=== PATIENT | female | born 1960 | race Caucasian/White ===

== ENCOUNTER → 2018-01-16 09:59 | Outpatient (CLI) | payer OTHER, SELFPAY ==
--- NOTE | 2018-01-16 10:19 | DI.RAD.S_ITS ---
PROCEDURE: XR CERVICAL SPINE 2V OR 3V INDICATIONS: Chronic neck pain TECHNIQUE: 3 view(s) of the cervical spine were acquired. COMPARISON: None. FINDINGS: Bones: Cervical lordosis is maintained. Slight anterolisthesis C4-5 and C5-6. Anterior bony spondylosis C4-C7. Disc narrowing C6-7. No fractures or dislocations to the C7 level. The lateral masses of C1 appear intact on the odontoid view. No suspicious bony lesions. Radiodensity posterior to the C7 dorsal spinous process could represent old cortical avulsion injury versus soft tissue ossification. Soft tissues: No prevertebral soft tissue swelling. IMPRESSION: 1. No acute bony abnormality. 2. Mild malalignment, hypertrophic changes and disc disease. 3. Small ossification posterior to the C7 dorsal spinous process, possibility of remote avulsion injury not excluded. Dictated by: Jadiel Grace M.D. on 01/16/2018 at 10:48 Approved by: Jadiel Grace M.D. on 01/16/2018 at 10:52
--- NOTE | 2018-01-16 10:19 | DI.RAD.S_ITS ---
PROCEDURE: XR SHOULDER RT MIN 2V INDICATIONS: Chronic right anterior shoulder pain TECHNIQUE: 3 views of the shoulder were acquired. COMPARISON: None. FINDINGS: Bones: Degenerative a.c. joint disease. No fractures or dislocations. No suspicious bony lesions. Visualized ribs appear intact. Soft tissues: Punctate calcification versus artifact overlying the humeral head laterally. IMPRESSION: 1. No acute or remote fracture deformity seen. 2. 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 Findings could correlate with impingement. 3. Possible calcific tendinopathy. Dictated by: Jadiel Grace M.D. on 01/16/2018 at 10:46 Approved by: Jadiel Grace M.D. on 01/16/2018 at 10:48
[2018-01-16 10:59] LABS: Add Manual Diff / Slide Review NO; Basophils Percent Auto 1.3 % (0-2); Eosinophils Percent Auto 2.7 % (2-4); Hematocrit 40.9 % (36-46); Hemoglobin 14.2 g/dL (12.0-16.0); Mean Corpuscular HGB Conc 34.7 % (30-36); Mean Corpuscular Hemoglobin 32.6 PG (26-34); Mean Corpuscular Volume 93.7 fL (80-100); Monocytes Percent Auto 9.2 % (3-14); Neutrophils Absolute Auto 3600 /uL (3000-5900); Neutrophils Percent Auto 55.8 % (50-75); Platelet Count 262 X10^3/uL (150-400); Red Blood Cell Count 4.37 X10^6/uL (4.0-5.2); Red Cell Distribution Width 12.7 % (11.6-14.8); White Blood Cell Count 6.4 X10^3/uL (4.5-11.0)
[2018-01-16 11:06] LABS: Hemoglobin A1C% w Est Avg Glu 6.9 % (4.0-6.0)
[2018-01-16 11:39] LABS: Creatinine Urine Random 20.7 mg/dL
[2018-01-16 11:41] LABS: Alanine Aminotransferase 36 IU/L (9-52); Albumin 4.4 g/dL (3.5-5.0); Albumin Globulin Ratio 1.4 (1.0-2.8); Alkaline Phosphatase 93 U/L (38-126); Aspartate Aminotransferase 31 IU/L (14-36); Bilirubin Total 0.8 mg/dL (0.2-1.3); Blood Urea Nitrogen 14 mg/dL (7-17); Calcium 10.5 mg/dL (8.4-10.2); Carbon Dioxide 31 mmol/L (22-32); Chloride 100 mmol/L (98-107); Cholesterol 228 mg/dL (140-199); Estimated Glomerular Filt Rate > 60.0 mL/min (>60); Globulin 3.1 g/dL (1.7-4.1); Glucose 157 mg/dL (70-100); HDL Cholesterol 66 mg/dL (40-60); HEMOLYSIS < 15 (0-50); LDL Cholesterol Calculated 144 mg/dL (<100); Potassium 5.3 mmol/L (3.4-5.1); Sodium 142 mmol/L (137-145); Total Protein 7.5 g/dL (6.3-8.2); Triglycerides 90 mg/dL (35-150)
[2018-01-16 11:48] LABS: Microalbumi Creatinin Ratio Ur 28.9 ug/mg CR (<30); Microalbumin Urine Random < 0.6 mg/dL (0-1.6)
[2018-01-16 12:08] LABS: Thyroid Stimulating Hormone 2.36 uIU/mL (0.47-4.68)
== END ==
PROVIDERS: PCP Internal Medicine; Visit Provider Internal Medicine
DX: E11.9 Type 2 diabetes mellitus without complications (principal); E78.5 Hyperlipidemia, unspecified; M54.2 Cervicalgia; M25.511 Pain in right shoulder
CPT/HCPCS: 36415; 72040; 73030; 80053; 80061; 82043; 82570; 83036; 84443; 85025

== ENCOUNTER → 2018-05-28 10:11 | Outpatient (CLI) | payer OTHER, SELFPAY ==
[2018-05-28 11:16] LABS: Hemoglobin A1C% w Est Avg Glu 6.7 % (4.0-6.0)
[2018-05-28 11:18] LABS: Alanine Aminotransferase 35 IU/L (9-52); Albumin 4.8 g/dL (3.5-5.0); Albumin Globulin Ratio 1.6 (1.0-2.8); Alkaline Phosphatase 78 U/L (38-126); Aspartate Aminotransferase 32 IU/L (14-36); BUN Creatinine Ratio 18.6 (6-22); Bilirubin Total 0.7 mg/dL (0.2-1.3); Blood Urea Nitrogen 13 mg/dL (7-17); Calcium 9.6 mg/dL (8.4-10.2); Carbon Dioxide 25 mmol/L (22-32); Chloride 103 mmol/L (98-107); Cholesterol 222 mg/dL (140-199); Estimated Glomerular Filt Rate > 60.0 mL/min (>60); Glucose 120 mg/dL (70-100); HDL Cholesterol 57 mg/dL (40-60); HEMOLYSIS < 15 (0-50); LDL Cholesterol Calculated 141 mg/dL (<100); Potassium 4.2 mmol/L (3.4-5.1); Sodium 142 mmol/L (137-145); Total Protein 7.8 g/dL (6.3-8.2); Triglycerides 120 mg/dL (35-150)
== END ==
PROVIDERS: PCP Internal Medicine; Visit Provider Internal Medicine
DX: E78.5 Hyperlipidemia, unspecified (principal); E83.52 Hypercalcemia; E87.5 Hyperkalemia; E11.9 Type 2 diabetes mellitus without complications
CPT/HCPCS: 36415; 80053; 80061; 83036

== ENCOUNTER → 2018-11-28 06:46 | Outpatient (CLI) | payer OTHER, SELFPAY ==
--- NOTE | 2018-11-28 | DI.ECHO.S_ITS ---
[facility]---------+ [facility] +---------+ : : [address] : : : : [id number] : : : : Phone: [phone] Echocardiogram Report + + :Name: SOHAIL GAYLE Study Date: 11/28/2018 Height: 67 in : :[facility] Weight: 191 lb : : Gender: Female BSA: 2.0 m2 : :: 1960 Age: 58 yrs BP: 128/78 mmHg: :Reason For Study: MURMUR : : Performed By: Britney Fairchild : :Referring: MILE STEWART : + + Interpretation Summary The left ventricle is normal in size, wall thickness, and systolic function without any focal wall motion abnormalities. The right ventricle is normal in size and function. There is trace mitral regurgitation. There is no significant valvular abnormalities. No prior echo for comparison. Procedure: A two-dimensional transthoracic echocardiogram with color flow and Doppler was performed. The study quality was technically adequate. There is no prior echocardiogram noted for this patient. The patient was in normal sinus rhythm during the exam. Left Ventricle: The left ventricle is normal in size, wall thickness, and systolic function without any focal wall motion abnormalities. The ejection fraction is estimated to be 60-65%. Diastolic parameters suggest probable normal left ventricular diastolic function and normal filling pressures. Right Ventricle: The right ventricle is normal in size and function. Atria: Both atria are normal in size. There is no Doppler evidence for an interatrial shunt. Mitral Valve: The mitral valve is normal in structure and function. There is trivial bowing of the posterior leaflet without prolapse. There is trace mitral regurgitation. Aortic Valve: The aortic valve is grossly normal. There is no aortic valve stenosis. No aortic regurgitation is present. Tricuspid Valve: The tricuspid valve is normal in structure and function. There is a trace or physiologic amount of tricuspid regurgitation. Pulmonary artery pressures cannot be estimated because of the lack of a measurable TR jet velocity. Pulmonic Valve: The pulmonic valve is not well seen, but is grossly normal. There is a trace or physiologic amount of pulmonic regurgitation. Great Vessels: The aortic root is normal size. The ascending aorta is normal in size. The aortic arch is normal in size. The pulmonary artery is normal size. The IVC is of normal diameter and collapses greater than 50% with a sniff. This suggests a low right atrial pressure of 3 mm Hg. Pericardium/ Pleura There is no pericardial effusion. There is no pleural effusion. MMode/2D Measurements & Calculations LVIDd: 4.4 cm LVOT diam: 1.8 cm LVIDs: 2.5 cm Ao root diam: 2.8 cm FS: 42.8 % asc Aorta Diam: 2.9 cm EPSS: 0.40 cm IVSd: 0.80 cm LVPWd: 0.73 cm LV atkinson. diameter/BSA (cm/m^2): 2.2 LV sys. diameter/BSA (cm/m^2): 1.3 LA A2 area: 13.2 cm2 RA long axis: 4.1 cm LA A4 area: 18.0 cm2 RA area: 13.0 cm2 LA length (vol): 5.1 cm RA vol: 34.9 ml LA vol: 39.2 ml RA : 17.6 ml/m2 LA vol index: 19.8 ml/m2 IVC diam: 2.1 cm RVD1 (basal): 3.3 cm TAPSE: 2.4 cm Doppler Measurements & Calculations Ao V2 max: 137.2 cm/sec LVOT Max Tho: 86.8 cm/sec Ao V2 mean: 102.7 cm/sec LV V1 max P.0 mmHg Ao max P.5 mmHg LV V1 VTI: 24.5 cm Ao mean P.5 mmHg LOS(I,D): 1.8 cm2 Ao V2 VTI: 35.9 cm LOS(V,D): 1.6 cm2 sev ratio: 0.68 LOS indexed to BSA (cm^2/m^2): 0.90 MV E max tho: 96.9 cm/sec SV(LVOT): 63.8 ml MV A max tho: 86.9 cm/sec MV E/A: 1.1 Med Peak E' Tho: 5.9 cm/sec E/E' med: 16.5 Lat Peak E' Tho: 8.9 cm/sec E/E' lat: 10.8 E/e' average: 13.7 MV dec time: 0.18 sec Electronically signed by: Rayray Young M.D. on Reading Physician:11/28/2018 10:14 AM
== END ==
PROVIDERS: PCP Internal Medicine; Visit Provider Internal Medicine
DX: R01.1 Cardiac murmur, unspecified (principal)
CPT/HCPCS: 93306

== ENCOUNTER 2019-04-14 11:27 | Emergency (ER) | payer OTHER, SELFPAY ==
[2019-04-14 11:35] VITALS: BP 132/79; PULSE 73; RESP 18; TEMP 36.8; O2SAT 97; BMI 36.2
--- NOTE | 2019-04-14 13:48 | DI.US.S_ITS ---
PROCEDURE: US ABDOMEN LIMITED INDICATIONS: RUQ PAIN TECHNIQUE: Real-time focused scanning was performed of the abdomen, with image documentation. COMPARISON: [facility], US, ABDOMEN COMPLETE, 10/11/2016, 8:34. [facility], CT, KIDNEY/ URETER/BLADDER, 09/29/2009, 13:30. FINDINGS: The liver demonstrates normal size. The liver demonstrates generalized increased echogenicity. This decreases ultrasound sensitivity for detection of hepatic masses. No findings of gallstones or sludge are seen. The gallbladder wall is not thickened, measuring 3 mm or less. No specific pericholecystic fluid is seen. The sonographic Sagastume sign is negative. There is no biliary dilatation, the common bile duct measures 3-4 mm. IMPRESSION: The gallbladder demonstrates a normal sonographic appearance. No biliary dilatation is seen. The liver demonstrates increased echogenicity. This finding is nonspecific, yet it is most commonly attributed to fatty infiltration. Dictated by: Brian Tirado M.D. on 04/14/2019 at 15:08 Approved by: Brian Tirado M.D. on 04/14/2019 at 15:10
[2019-04-14 13:50] LABS: Bacteria Urine None Seen; RBC Urine None Seen (0-5/HPF)
[2019-04-14 14:11] LABS: Culture Indicated Urine Cult Not Indicated; Squamous Epithelial Cell Urine 1-5 /HPF (0-5/HPF); WBC Urine 0-1/HPF (0-5/HPF)
[2019-04-14] MEDS: ONDANSETRON 4 MG/2 ML INJ IV (14:17)
[2019-04-14] MEDS: MORPHINE 4 MG/ML INJ IV (14:17)
[2019-04-14] MEDS: SODIUM CHLORIDE 0.9% 1,000 ML 1000 ML IV (14:17)
[2019-04-14 14:25] VITALS: BP 125/68; PULSE 70; RESP 17; O2SAT 96
[2019-04-14 14:32] LABS: Add Manual Diff / Slide Review NO; Basophils Absolute Auto 200 /uL (0-100); Basophils Percent Auto 2.7 % (0-2); Eosinophils Absolute Auto 200 /uL (0-450); Eosinophils Percent Auto 3.1 % (2-4); Hematocrit 42.2 % (36-46); Hemoglobin 14.6 g/dL (12.0-16.0); Lymphocytes Absolute Auto 2500 /uL (1100-4500); Lymphocytes Percent Auto 38.3 % (25-40); Mean Corpuscular HGB Conc 34.5 % (30-36); Mean Corpuscular Hemoglobin 31.8 PG (26-34); Mean Corpuscular Volume 92.4 fL (80-100); Monocytes Absolute Auto 600 /uL (0-900); Monocytes Percent Auto 8.6 % (3-14); Neutrophils Absolute Auto 3000 /uL (1500-7000); Neutrophils Percent Auto 47.3 % (50-75); Platelet Count 249 X10^3/uL (150-400); Red Blood Cell Count 4.57 X10^6/uL (4.0-5.2); Red Cell Distribution Width 12.5 % (11.6-14.8); White Blood Cell Count 6.4 X10^3/uL (4.5-11.0)
[2019-04-14 14:42] LABS: Alanine Aminotransferase 17 IU/L (9-52); Albumin 4.7 g/dL (3.5-5.0); Albumin Globulin Ratio 1.4 (1.0-2.8); Alkaline Phosphatase 115 U/L (38-126); Amylase 87 U/L (30-110); Aspartate Aminotransferase 32 IU/L (14-36); BUN Creatinine Ratio 18.6 (6-22); Bilirubin Total 0.4 mg/dL (0.2-1.3); Blood Urea Nitrogen 13 mg/dL (7-17); Calcium 10.3 mg/dL (8.4-10.2); Carbon Dioxide 25 mmol/L (22-32); Chloride 103 mmol/L (98-107); Estimated Glomerular Filt Rate > 60.0 mL/min (>60); Globulin 3.3 g/dL (1.7-4.1); Glucose 120 mg/dL (70-100); HEMOLYSIS 24 (0-50); Lipase 188 U/L (23-300); Potassium 4.5 mmol/L (3.4-5.1); Sodium 140 mmol/L (137-145)
[2019-04-14 15:34] VITALS: BP 123/76; PULSE 65; O2SAT 95
[2019-04-14 16:16] VITALS: BP 115/65; PULSE 60; RESP 16; O2SAT 97
--- NOTE | 2019-04-14 18:27 | ED.FEMALEGU ---
HPI - Female Genitourinary <MAXIM Brower - Last Filed: 04/14/19 18:31> General Chief complaint: Urogenital-Female Stated complaint: mid abd/back right side pain x14 days Time Seen by Provider: 04/14/19 13:08 Source: patient and family Mode of arrival: ambulatory Limitations: no limitations History of Present Illness HPI Narrative: The patient is a 58-year-old female nonsmoker with history of prediabetes who presents with a chief complaint of right upper quadrant pain. She states has been going on for 2 weeks. She states that she saw her PCP for a yesterday, who ordered blood work which came back normal. She has an appointment for an ultrasound of her right upper quadrant coming up. The patient states that she has crampy pain in her right upper quadrant that radiates around to her back. She states that it gets worse after eating, especially fatty foods. She does note that she recently has been doing the ketogenic diet, and has substantially increased her fat intake. She states that her stools have been different lately. She states she has nausea, no vomiting. She denies any fevers, chest pain shortness of breath. She states that she does not have any lower belly pain. She does not have any dysuria urgency or frequency. She denies any vaginal discharge possibility of as she has had a tubal ligation. Related Data Home Medications Medication Instructions Recorded Confirmed Glucose: Test Strips 0 str MISCELLANEOUS BID 04/14/19 04/14/19 citalopram [Celexa] 20 mg PO QPM 04/14/19 04/14/19 metformin 1,000 mg PO BID 04/14/19 04/14/19 metformin 500 mg PO DAILY 04/14/19 04/14/19 Previous Rx's Medication Instructions Recorded omeprazole 40 mg PO BID #28 cap 10/08/16 ondansetron 4 mg PO Q6H PRN #20 tab 04/14/19 Allergies Allergy/AdvReac Type Severity Reaction Status Date / Time Penicillins Allergy Mild RASH Verified 04/14/19 11:35 Review of Systems <MAXIM Brower - Last Filed: 04/14/19 18:31> Review of Systems Narrative: GENERAL: Denies chills, fatigue, malaise, fever, sweats. HEENT: Denies sinus pain, ear pain, sore throat, difficulty swallowing, dizziness. RESPIRATORY: Denies dyspnea, cough, wheezing, hemoptysis, sputum. CARDIOVASCULAR: Denies chest pain, palpitations, orthopnea, edema, GASTROINTESTINAL: See HPI : Denies dysuria, frequency, incontinence, hematuria, urinary retention. MUSCULOSKELETAL: denies weakness, joint pain, or bony pain SKIN: Denies rash, skin lesions, or other NEUROLOGIC: Denies weakness, headache, numbness, change in speech, confusion, seizures, incoordination. PSYCHIATRIC: No concerning psychosocial issues. 12 point review of systems is negative except for those stated above PFSH <MAXIM Brower - Last Filed: 04/14/19 18:31> Medical History Ankle pain (Chronic ~2013) Depression (Chronic ~1979) Diabetes mellitus (Chronic ~2006) Foot pain (Chronic ~2013) Fractures (Resolved ~1969) Hay fever (Chronic ~1979) Mumps (Resolved) Vertigo (Chronic ~2006) Vision disorder (Chronic) Surgical History Anesthesia (Resolved) Status post tubal ligation (~1999) Trigger finger of right thumb (Resolved ~1999) Family History (Updated 04/08/16 @ 00:00 by Conversion Provider) Father Cancer Heart disease Grandfather Diabetes mellitus Heart disease Stroke Grandmother Diabetes mellitus Stroke Mother Heart disease Grandmother Heart disease Social History Smoking Status: Former smoker Family History Father Cancer Heart disease Grandfather Diabetes mellitus Heart disease Stroke Grandmother Diabetes mellitus Stroke Mother Heart disease Grandmother Heart disease Social History Smoking Status: Former smoker Exam <MAXIM Brower - Last Filed: 04/14/19 18:31> Narrative Exam Narrative: GENERAL: This is a well-nourished, well-developed patient, no acute distress HEAD: Atraumatic. Normocephalic. No temporal or scalp tenderness. EYES: Pupils equal round and reactive. Extraocular motions intact. No scleral icterus. No injection or drainage. ENT: Nose without bleeding, purulent drainage or septal hematoma. Throat without erythema, tonsillar hypertrophy or exudate. Uvula midline. Airway patent. NECK: Trachea midline. No JVD or lymphadenopathy. Supple, nontender, no meningeal signs. CARDIOVASCULAR: Regular rate and rhythm without murmurs, gallops, or rubs. RESPIRATORY: Clear to auscultation. Breath sounds equal bilaterally. No wheezes, rales, or rhonchi. GASTROINTESTINAL: Abdomen soft, tender right upper quadrant with positive Sagastume sign, nondistended. No hepato-splenomegaly, or palpable masses. No guarding. No right lower quadrant left lower quadrant pain. No pain over McBurney's point. Active bowel sounds all 4 quadrants. EXTREMITIES: No clubbing, cyanosis, or edema. No joint tenderness, effusion, or edema noted. BACK: Nontender without deformity or crepitance. No flank tenderness. No CVA tenderness bilaterally. NEURO: AOx3. SKIN: No rash or erythema. Initial Vital Signs Initial Vital Signs: Vital Signs Temperature 98.2 F 04/14/19 11:35 Pulse Rate 73 04/14/19 11:35 Respiratory Rate 18 04/14/19 11:35 Blood Pressure 132/79 04/14/19 11:35 Pulse Oximetry 97 04/14/19 11:35 <Rox White DO - Last Filed: 04/14/19 19:21> Initial Vital Signs Initial Vital Signs: Vital Signs Temperature 98.2 F 04/14/19 11:35 Pulse Rate 73 04/14/19 11:35 Respiratory Rate 18 04/14/19 11:35 Blood Pressure 132/79 04/14/19 11:35 Pulse Oximetry 97 04/14/19 11:35 Course <CATHY Brower-BC - Last Filed: 04/14/19 18:31> Orders Ordered: ED Orders 04/14/19 13:48 US abdomen limited Stat 04/14/19 14:22 Amylase Stat Complete Blood Count AUTO DIFF Stat Comprehensive Metabolic Panel Stat Lipase Stat Discontinued Medications Sodium Chloride (Normal Saline 0.9%) 1,000 mls @ 1,000 mls/hr IV BOLUS ONE Stop: 04/14/19 14:48 Last Infusion: 04/14/19 15:28 Dose: 0 mls/hr Documented by: Admin: 04/14/19 14:17 Dose: 1,000 mls/hr Documented by: ELLIOTT Morphine Sulfate (Morphine) 4 mg IV NOW ONE Stop: 04/14/19 13:48 Last Admin: 04/14/19 14:17 Dose: 4 mg Documented by: ELLIOTT Ondansetron HCl (Zofran) 4 mg IV NOW ONE Stop: 04/14/19 13:48 Last Admin: 04/14/19 14:17 Dose: 4 mg Documented by: ELLIOTT Vital Signs Vital signs: Vital Signs - 8 hr 04/14/19 11:35 04/14/19 14:25 04/14/19 15:34 Temperature 98.2 F Pulse Rate 73 70 65 Respiratory Rate 18 17 Blood Pressure 132/79 Blood Pressure [Left Wrist] 125/68 123/76 Pulse Oximetry 97 96 95 04/14/19 16:16 Temperature Pulse Rate 60 Respiratory Rate 16 Blood Pressure 115/65 Blood Pressure [Left Wrist] Pulse Oximetry 97 <Rox White, - Last Filed: 04/14/19 19:21> Orders Ordered: ED Orders 04/14/19 13:48 US abdomen limited Stat 04/14/19 14:22 Amylase Stat Complete Blood Count AUTO DIFF Stat Comprehensive Metabolic Panel Stat Lipase Stat Discontinued Medications Sodium Chloride (Normal Saline 0.9%) 1,000 mls @ 1,000 mls/hr IV BOLUS ONE Stop: 04/14/19 14:48 Last Infusion: 04/14/19 15:28 Dose: 0 mls/hr Documented by: Admin: 04/14/19 14:17 Dose: 1,000 mls/hr Documented by: ELLIOTT Morphine Sulfate (Morphine) 4 mg IV NOW ONE Stop: 04/14/19 13:48 Last Admin: 04/14/19 14:17 Dose: 4 mg Documented by: ELLIOTT Ondansetron HCl (Zofran) 4 mg IV NOW ONE Stop: 04/14/19 13:48 Last Admin: 04/14/19 14:17 Dose: 4 mg Documented by: ELLIOTT Vital Signs Vital signs: Vital Signs - 8 hr 04/14/19 11:35 04/14/19 14:25 04/14/19 15:34 Temperature 98.2 F Pulse Rate 73 70 65 Respiratory Rate 18 17 Blood Pressure 132/79 Blood Pressure [Left Wrist] 125/68 123/76 Pulse Oximetry 97 96 95 04/14/19 16:16 Temperature Pulse Rate 60 Respiratory Rate 16 Blood Pressure 115/65 Blood Pressure [Left Wrist] Pulse Oximetry 97 MDM - Female Genitourinary <Rox Espinosa, [employer]- - Last Filed: 04/14/19 18:31> Lab Data Result diagrams: 04/14/19 14:22 04/14/19 14:22 Labs: Lab Results 04/14/19 04/14/19 04/14/19 Range/Units 01:53 14:22 14:22 WBC 6.4 (4.5-11.0) X10^3/uL RBC 4.57 (4.0-5.2) X10^6/uL Hgb 14.6 (12.0-16.0) g/dL Hct 42.2 (36-46) % MCV 92.4 (80-100) fL MCH 31.8 (26-34) PG MCHC 34.5 (30-36) % RDW 12.5 (11.6-14.8) % Plt Count 249 (150-400) X10^3/uL Neut % (Auto) 47.3 L (50-75) % Lymph % (Auto) 38.3 (25-40) % Rincon % (Auto) 8.6 (3-14) % Eos % (Auto) 3.1 (2-4) % Baso % (Auto) 2.7 H (0-2) % Neut # (Auto) 3000 (3115-0358) /uL Lymph # (Auto) 2500 (5359-6315) /uL Rincon # (Auto) 600 (0-900) /uL Eos # (Auto) 200 (0-450) /uL Baso # (Auto) 200 H (0-100) /uL Sodium (137-145) mmol/L Potassium (3.4-5.1) mmol/L Chloride (98-107) mmol/L Carbon Dioxide (22-32) mmol/L BUN (7-17) mg/dL Creatinine (0.52-1.04) mg/dL Estimated GFR (>60) mL/min BUN/Creatinine Ratio (6-22) Glucose (70-100) mg/dL Calcium (8.4-10.2) mg/dL Total Bilirubin (0.2-1.3) mg/dL AST (14-36) IU/L ALT (9-52) IU/L Alkaline Phosphatase (38-126) U/L Total Protein (6.3-8.2) g/dL Albumin (3.5-5.0) g/dL Globulin (1.7-4.1) g/dL Albumin/Globulin Ratio (1.0-2.8) Amylase 87 (30-110) U/L Lipase (23-300) U/L Urine RBC None seen (0-5/HPF) Urine WBC 0-1/hpf (0-5/HPF) Ur Squamous Epith Cells 1-5 /hpf (0-5/HPF) Urine Bacteria None seen (None) Ur Culture Indicated? Cult not indicated 04/14/19 Range/Units 14:22 WBC (4.5-11.0) X10^3/uL RBC (4.0-5.2) X10^6/uL Hgb (12.0-16.0) g/dL Hct (36-46) % MCV (80-100) fL MCH (26-34) PG MCHC (30-36) % RDW (11.6-14.8) % Plt Count (150-400) X10^3/uL Neut % (Auto) (50-75) % Lymph % (Auto) (25-40) % Rincon % (Auto) (3-14) % Eos % (Auto) (2-4) % Baso % (Auto) (0-2) % Neut # (Auto) (8546-2557) /uL Lymph # (Auto) (0664-9130) /uL Rincon # (Auto) (0-900) /uL Eos # (Auto) (0-450) /uL Baso # (Auto) (0-100) /uL Sodium 140 (137-145) mmol/L Potassium 4.5 (3.4-5.1) mmol/L Chloride 103 (98-107) mmol/L Carbon Dioxide 25 (22-32) mmol/L BUN 13 (7-17) mg/dL Creatinine 0.70 (0.52-1.04) mg/dL Estimated GFR > 60.0 (>60) mL/min BUN/Creatinine Ratio 18.6 (6-22) Glucose 120 H (70-100) mg/dL Calcium 10.3 H (8.4-10.2) mg/dL Total Bilirubin 0.4 (0.2-1.3) mg/dL AST 32 (14-36) IU/L ALT 17 (9-52) IU/L Alkaline Phosphatase 115 (38-126) U/L Total Protein 8.0 (6.3-8.2) g/dL Albumin 4.7 (3.5-5.0) g/dL Globulin 3.3 (1.7-4.1) g/dL Albumin/Globulin Ratio 1.4 (1.0-2.8) Amylase (30-110) U/L Lipase 188 (23-300) U/L Urine RBC (0-5/HPF) Urine WBC (0-5/HPF) Ur Squamous Epith Cells (0-5/HPF) Urine Bacteria (None) Ur Culture Indicated? Urine Dip Bedside Urine Glucose Negative Bedside Urine Bilirubin - Negative Bedside Urine Ketone +/- 5 Urine Specific Ridgeley 1.015 Bedside Urine Occult Blood - Negative Bedside Urine pH 5.5 Bedside Urine Protein - Negative Bedside Urine Urobilinogen - Negative Bedside Urine Nitrite - Negative Bedside Urine Leukocytes - Negative Esterase Imaging Data US - abdomen: Radiologist's impression: [address] [address] Ultrasound Report Signed Patient: Renuka Floyd KMR#: [id number] : 2Acct:[id number] Age/Sex: 58 / FDate of Service: 04/14/19 Loc: ED Accession Number: [id number] Procedure: US abdomen limited Ordering Provider: Rox Espinosa PROCEDURE: US ABDOMEN LIMITED INDICATIONS: RUQ PAIN TECHNIQUE: Real-time focused scanning was performed of the abdomen, with image documentation. COMPARISON: [facility], US, ABDOMEN COMPLETE, 10/11/2016, 8:34. [facility], CT, KIDNEY/ URETER/BLADDER, 09/29/2009, 13:30. FINDINGS: The liver demonstrates normal size. The liver demonstrates generalized increased echogenicity. This decreases ultrasound sensitivity for detection of hepatic masses. No findings of gallstones or sludge are seen. The gallbladder wall is not thickened, measuring 3 mm or less. No specific pericholecystic fluid is seen. The sonographic Sagastume sign is negative. There is no biliary dilatation, the common bile duct measures 3-4 mm. IMPRESSION: The gallbladder demonstrates a normal sonographic appearance. No biliary dilatation is seen. The liver demonstrates increased echogenicity. This finding is nonspecific, yet it is most commonly attributed to fatty infiltration. Dictated by: Brian Tirado M.D. on 04/14/2019 at 15:08 Approved by: Brian Tirado M.D. on 04/14/2019 at 15:10 [facility] Narrative Medical decision making narrative: The patient is a 58-year-old female who presents with a chief complaint of right upper quadrant pain. She was given IV fluids, Zofran in the emergency department. Her lab work came back grossly within normal limits. I did get a right upper quadrant ultrasound given her concerns, or which came back with no acute findings. I discussed that she does have some fatty liver. Encouraged following up with primary care provider. I did give her a prescription of Zofran. Encouraged following up with PCP in the next few days. Discussed come back to the emergency department for any acute concerns such as inability keep down fluids, severe worsening abdominal pain etc. Patient has no questions or concerns upon discharge and states that she will come back if needed and follow up with PCP. <Rox White, DO - Last Filed: 04/14/19 19:21> Lab Data Labs: Lab Results 04/14/19 04/14/19 04/14/19 Range/Units 01:53 14:22 14:22 WBC 6.4 (4.5-11.0) X10^3/uL RBC 4.57 (4.0-5.2) X10^6/uL Hgb 14.6 (12.0-16.0) g/dL Hct 42.2 (36-46) % MCV 92.4 (80-100) fL MCH 31.8 (26-34) PG MCHC 34.5 (30-36) % RDW 12.5 (11.6-14.8) % Plt Count 249 (150-400) X10^3/uL Neut % (Auto) 47.3 L (50-75) % Lymph % (Auto) 38.3 (25-40) % Rincon % (Auto) 8.6 (3-14) % Eos % (Auto) 3.1 (2-4) % Baso % (Auto) 2.7 H (0-2) % Neut # (Auto) 3000 (4002-1739) /uL Lymph # (Auto) 2500 (7606-9153) /uL Rincon # (Auto) 600 (0-900) /uL Eos # (Auto) 200 (0-450) /uL Baso # (Auto) 200 H (0-100) /uL Sodium (137-145) mmol/L Potassium (3.4-5.1) mmol/L Chloride (98-107) mmol/L Carbon Dioxide (22-32) mmol/L BUN (7-17) mg/dL Creatinine (0.52-1.04) mg/dL Estimated GFR (>60) mL/min BUN/Creatinine Ratio (6-22) Glucose (70-100) mg/dL Calcium (8.4-10.2) mg/dL Total Bilirubin (0.2-1.3) mg/dL AST (14-36) IU/L ALT (9-52) IU/L Alkaline Phosphatase (38-126) U/L Total Protein (6.3-8.2) g/dL Albumin (3.5-5.0) g/dL Globulin (1.7-4.1) g/dL Albumin/Globulin Ratio (1.0-2.8) Amylase 87 (30-110) U/L Lipase (23-300) U/L Urine RBC None seen (0-5/HPF) Urine WBC 0-1/hpf (0-5/HPF) Ur Squamous Epith Cells 1-5 /hpf (0-5/HPF) Urine Bacteria None seen (None) Ur Culture Indicated? Cult not indicated 04/14/19 Range/Units 14:22 WBC (4.5-11.0) X10^3/uL RBC (4.0-5.2) X10^6/uL Hgb (12.0-16.0) g/dL Hct (36-46) % MCV (80-100) fL MCH (26-34) PG MCHC (30-36) % RDW (11.6-14.8) % Plt Count (150-400) X10^3/uL Neut % (Auto) (50-75) % Lymph % (Auto) (25-40) % Rincon % (Auto) (3-14) % Eos % (Auto) (2-4) % Baso % (Auto) (0-2) % Neut # (Auto) (6806-9275) /uL Lymph # (Auto) (0034-9284) /uL Rincon # (Auto) (0-900) /uL Eos # (Auto) (0-450) /uL Baso # (Auto) (0-100) /uL Sodium 140 (137-145) mmol/L Potassium 4.5 (3.4-5.1) mmol/L Chloride 103 (98-107) mmol/L Carbon Dioxide 25 (22-32) mmol/L BUN 13 (7-17) mg/dL Creatinine 0.70 (0.52-1.04) mg/dL Estimated GFR > 60.0 (>60) mL/min BUN/Creatinine Ratio 18.6 (6-22) Glucose 120 H (70-100) mg/dL Calcium 10.3 H (8.4-10.2) mg/dL Total Bilirubin 0.4 (0.2-1.3) mg/dL AST 32 (14-36) IU/L ALT 17 (9-52) IU/L Alkaline Phosphatase 115 (38-126) U/L Total Protein 8.0 (6.3-8.2) g/dL Albumin 4.7 (3.5-5.0) g/dL Globulin 3.3 (1.7-4.1) g/dL Albumin/Globulin Ratio 1.4 (1.0-2.8) Amylase (30-110) U/L Lipase 188 (23-300) U/L Urine RBC (0-5/HPF) Urine WBC (0-5/HPF) Ur Squamous Epith Cells (0-5/HPF) Urine Bacteria (None) Ur Culture Indicated? Urine Dip Bedside Urine Glucose Negative Bedside Urine Bilirubin - Negative Bedside Urine Ketone +/- 5 Urine Specific Ridgeley 1.015 Bedside Urine Occult Blood - Negative Bedside Urine pH 5.5 Bedside Urine Protein - Negative Bedside Urine Urobilinogen - Negative Bedside Urine Nitrite - Negative Bedside Urine Leukocytes - Negative Esterase Discharge Plan Departure Patient Disposition: Home Clinical Impression: Biliary colic Abdominal pain Qualifiers: Abdominal location: right upper quadrant Qualified Code(s): R10.11 - Right upper quadrant pain Discharge Date/Time: 04/14/19 16:17 Instructions: DI for Abdominal Pain-Adult, DI for Biliary Colic Activity Restrictions/Additional Instructions: Thank you for trusting us with your care today Your ultrasound and lab work came back normal, other than slight fatty liver being suspected. Please come back to the emergency department for any acute concerns such as the ones we discussed including severe abdominal pain etc Please follow up with primary care provider in the next few days. I have given you a prescription of Zofran for nausea Prescriptions: New ondansetron 4 mg tablet,disintegrating 4 mg PO Q6H PRN (Reason: nausea and vomiting) Qty: 20 RF: 0 No Action omeprazole 40 MG capsule,delayed release(DR/EC) 40 mg PO BID Qty: 28 RF: 0 citalopram [Celexa] 40 mg tablet 20 mg PO QPM RF: 0 metformin 1,000 mg tablet 1,000 mg PO BID RF: 0 metformin 1,000 mg Tablet 500 mg PO DAILY RF: 0 Glucose: Test Strips 0 str miscellaneous BID RF: 0 Referrals: Taylor Manning ARNP [Primary Care Provider] -
== END 2019-04-14 16:17 | disposition home or self-care (01) ==
PROVIDERS: Emergency Provider Nurse Practitioner Family; PCP Internal Medicine
DX: K80.50 Calculus of bile duct without cholangitis or cholecystitis without obstruction (principal)
CPT/HCPCS: 76705; 80053; 81003; 81015; 82150; 83690; 85025; 96361; 96374; 96375; 99283; 99284; J2270; J2405

== ENCOUNTER → 2019-04-16 08:10 | Outpatient (CLI) | payer OTHER, SELFPAY ==
--- NOTE | 2019-04-16 | DI.US.S_ITS ---
PROCEDURE: US PELVIC COMPLETE INDICATIONS: PELVIC PAIN TECHNIQUE: Real-time scanning was performed of the pelvic organs, with image documentation. Additional endovaginal scanning was necessary due to incomplete visualization of the adnexal and endometrial structures by transabdominal scanning. COMPARISON: [facility], PELVIC COMPLETE, 10/11/2016, 8:46. Formerly [facility], , PELVIC COMPLETE, 09/09/2014, 12:52. FINDINGS: Transabdominal scanning: Limited scanning through the kidneys shows no hydronephrosis. No pathologic free abdominal or pelvic fluid. Endovaginal scanning: Uterus: Uterus is normal in size at 3.6 x 4.7 x 9.9 cm, anteverted. The endometrium measures 6.4 mm in combined thickness. The at the midline anteriorly there is a subserosal 2.5 x 2.2 x 2.0 cm fibroid. Ovaries: Not seen due to overlying bowel gas and presumed postmenopausal ovarian atrophy. IMPRESSION: Source of pelvic pain is not seen. Incidental note is made of a single uterine fibroid measuring only 2.5 cm in maximal dimension. No endometrial mass lesion is found. Please note that the ovaries could not be seen bilaterally due to to overlying bowel gas and likely also a component of postmenopausal ovarian atrophy. Dictated by: Kemal Sosa M.D. on 04/16/2019 at 11:15 Approved by: Kemal Sosa M.D. on 04/16/2019 at 11:18
== END ==
PROVIDERS: PCP Internal Medicine; Visit Provider Internal Medicine
DX: R10.2 Pelvic and perineal pain (principal); R10.11 Right upper quadrant pain; D25.2 Subserosal leiomyoma of uterus
CPT/HCPCS: 76830; 76856

== ENCOUNTER 2019-04-27 12:05 | Emergency (ER) | payer OTHER, SELFPAY ==
[2019-04-27 12:10] VITALS: BP 126/77; PULSE 68; RESP 16; TEMP 36.9; O2SAT 98; BMI 36.2
--- NOTE | 2019-04-27 13:06 | ED_ITS ---
HPI - Abdominal Pain General Chief Complaint: Abdominal Pain Stated Complaint: Hard time taking deep breath, pain pressure rt cassius Time Seen by Provider: 04/27/19 13:00 Source: patient Mode of arrival: Ambulatory History of Present Illness HPI narrative: Patient is a 58-year-old female presents with right upper quadrant and rib pain. She says been off and on for about a month. She had it worked up as an outpatient she had ultrasound 04/14/2019 which did not show anything specific. She continues to have pain it radiates 5 around her back to her front right upper quadrant. She denies any nausea is overall getting a little bit worse. No vomiting no fevers. It hurts sometimes when she breathes. She denies any flank pain no hematuria MD complaint: abdominal pain Quality: stabbing Radiation: RUQ Related Data Home Medications Medication Instructions Recorded Confirmed Glucose: Test Strips 0 str MISCELLANEOUS BID 04/14/19 04/14/19 citalopram [Celexa] 20 mg PO QPM 04/14/19 04/27/19 metformin 1,000 mg PO BID 04/14/19 04/27/19 metformin 500 mg PO DAILY 04/14/19 04/27/19 Previous Rx's Medication Instructions Recorded omeprazole 40 mg PO BID #28 cap 10/08/16 ondansetron 4 mg PO Q6H PRN #20 tab 04/14/19 Allergies Allergy/AdvReac Type Severity Reaction Status Date / Time Penicillins Allergy Mild RASH Verified 04/27/19 12:09 Review of Systems Review of Systems Narrative: GENERAL: Denies chills, fatigue, malaise, fever, sweats, travel HEENT: Denies sinus pain, ear pain, sore throat, difficulty swallowing, neck pain RESPIRATORY: Denies dyspnea, cough, wheezing, hemoptysis, sputum. CARDIOVASCULAR: Denies chest pain, palpitations, orthopnea, edema GASTROINTESTINAL: See HPI : Denies dysuria, frequency, incontinence, hematuria, urinary retention, flank pain. MUSCULOSKELETAL: Denies weakness, joint pain, or bony pain SKIN: No rash, no erythema, no pruritus NEUROLOGIC: Denies weakness, dizziness, headache, numbness, change in speech, confusion PSYCHIATRIC: No concerning psychosocial issues. 12 point review of systems is negative except for those stated above and HPI [facility] Medical History Ankle pain (Chronic ~2013) Depression (Chronic ~1979) Diabetes mellitus (Chronic ~2006) Foot pain (Chronic ~2013) Fractures (Resolved ~1969) Hay fever (Chronic ~1979) Mumps (Resolved) Vertigo (Chronic ~2006) Vision disorder (Chronic) Surgical History Anesthesia (Resolved) Status post tubal ligation (~1999) Trigger finger of right thumb (Resolved ~1999) Family History Father Cancer Heart disease Grandfather Diabetes mellitus Heart disease Stroke Grandmother Diabetes mellitus Stroke Mother Heart disease Grandmother Heart disease Social History Smoking Status: Former smoker Family History Father Cancer Heart disease Grandfather Diabetes mellitus Heart disease Stroke Grandmother Diabetes mellitus Stroke Mother Heart disease Grandmother Heart disease Social History Smoking Status: Former smoker Exam Initial Vital Signs Initial Vital Signs: Vital Signs Temperature 98.4 F 04/27/19 12:10 Pulse Rate 68 04/27/19 12:10 Respiratory Rate 16 04/27/19 12:10 Blood Pressure 126/77 04/27/19 12:10 Pulse Oximetry 98 04/27/19 12:10 GENERAL: Well-appearing, well-nourished and in no acute distress. HEENT: Head atraumatic,EOMI, pupils reactive, face symmetric, moist mucous membranes CARDIOVASCULAR: Regular rate and rhythm without murmurs, rubs or gallops. RESPIRATORY: Breath sounds equal bilaterally, no wheezes rales or rhonchi. Ribs are nontender to palpation ABDOMEN: Soft, mild tenderness or right upper quadrant no guarding no rebound : No CVA tenderness EXTREMITIES: Normal range of motion, no clubbing or edema. Neurovascularly intact NEUROLOGICAL: Alert and oriented x4. SKIN: Warm, dry, no laceration, no petechiae, no rashes or lesions. Course Orders Ordered: ED Orders 04/27/19 12:11 EKG-12 Lead Routine 04/27/19 13:06 US abdomen limited Stat Complete Blood Count AUTO DIFF Stat Comprehensive Metabolic Panel Stat Lipase Stat Discontinued Medications Ketorolac Tromethamine (Toradol) 30 mg IV NOW ONE Stop: 04/27/19 13:07 Last Admin: 04/27/19 13:20 Dose: 30 mg Documented by: KENYON Vital Signs Vital signs: Vital Signs - 8 hr 04/27/19 12:10 04/27/19 14:21 Temperature 98.4 F Pulse Rate 68 57 L Respiratory Rate 16 16 Blood Pressure 126/77 Blood Pressure [Right Arm] 127/66 Pulse Oximetry 98 99 MDM - Abdominal Pain Lab Data Attestation: I reviewed the patient's lab results. Result diagrams: 04/27/19 13:06 04/27/19 13:06 Labs: Lab Results 04/27/19 04/27/19 Range/Units 13:06 13:06 WBC 6.8 (4.5-11.0) X10^3/uL RBC 4.15 (4.0-5.2) X10^6/uL Hgb 13.2 (12.0-16.0) g/dL Hct 38.2 (36-46) % MCV 92.1 (80-100) fL MCH 31.8 (26-34) PG MCHC 34.5 (30-36) % RDW 12.3 (11.6-14.8) % Plt Count 224 (150-400) X10^3/uL Neut % (Auto) 48.1 L (50-75) % Lymph % (Auto) 36.1 (25-40) % Pitkin % (Auto) 10.3 (3-14) % Eos % (Auto) 2.4 (2-4) % Baso % (Auto) 3.1 H (0-2) % Neut # (Auto) 3300 (1418-1912) /uL Lymph # (Auto) 2400 (3742-2994) /uL Pitkin # (Auto) 700 (0-900) /uL Eos # (Auto) 200 (0-450) /uL Baso # (Auto) 200 H (0-100) /uL Sodium 140 (137-145) mmol/L Potassium 4.7 (3.4-5.1) mmol/L Chloride 103 (98-107) mmol/L Carbon Dioxide 26 (22-32) mmol/L BUN 19 H (7-17) mg/dL Creatinine 0.70 (0.52-1.04) mg/dL Estimated GFR > 60.0 (>60) mL/min BUN/Creatinine Ratio 27.1 H (6-22) Glucose 115 H (70-100) mg/dL Calcium 10.1 (8.4-10.2) mg/dL Total Bilirubin 0.5 (0.2-1.3) mg/dL AST 36 (14-36) IU/L ALT 26 (9-52) IU/L Alkaline Phosphatase 85 (38-126) U/L Total Protein 7.4 (6.3-8.2) g/dL Albumin 4.3 (3.5-5.0) g/dL Globulin 3.1 (1.7-4.1) g/dL Albumin/Globulin Ratio 1.4 (1.0-2.8) Lipase 134 (23-300) U/L Imaging Data US - abdomen: Radiologist's impression: PROCEDURE: US ABDOMEN LIMITED INDICATIONS: RIGHT UPPER QUADRANT TECHNIQUE: Real-time focused scanning was performed of the abdomen, with image documentation. COMPARISON: [facility], , US ABDOMEN LIMITED, 04/14/2019, 14:45. FINDINGS: Echogenic liver consistent with fatty change again noted. Gallbladder is again noted to be unremarkable. No gallstones or gallbladder wall thickening or pain on examination. The bile duct is nondilated. The common bile duct measures 4 mm. Visualized portions of the pancreas are unremarkable. IMPRESSION: 1. Hepatic steatosis. 2. Unremarkable gallbladder. Dictated by: Puneet Love M.D. on 04/27/2019 at 14:58 ECG Data Attestation: I personally reviewed and interpreted this ECG as follows: Prior ECG tracings: not available for review Interpretation: Normal sinus rhythm rate 66 p.r. interval 189 QRS [address] changes or T-wave inversions. [facility] Narrative Medical decision making narrative: Patient is feeling slightly better after Toradol. Blood work and ultrasound do not show any gross abnormality in her gallbladder however this is suspicious for gallbladder issue. She has pain that radiates all from the right side are round to her right upper quadrant and occasionally up to her right shoulder. She denies any injury no actual rib p ain. I recommend she have a HIDA scan. And possible evaluation with surgery. Discharge Plan Departure Patient Disposition: Home Clinical Impression: Abdominal pain Qualifiers: Abdominal location: right upper quadrant Qualified Code(s): R10.11 - Right upper quadrant pain Discharge Date/Time: 04/27/19 15:27 Instructions: DI for General Gallbladder Conditions, DI for HIDA Scan Activity Restrictions/Additional Instructions: *You have been diagnosed with abdominal pain *What to do: Pain is likely from gallbladder. I recommend HIDA scan as an outpatient and possible surgery consultation please discuss this with her PCP *Continue to take medications as directed *Follow up with your primary care provider in 2-3 days *Return to ER if you should have increasing pain persistent vomiting, fever or any new, worsening or concerning symptoms Prescriptions: No Action omeprazole 40 MG capsule,delayed release(DR/EC) 40 mg PO BID Qty: 28 RF: 0 citalopram [Celexa] 40 mg tablet 20 mg PO QPM RF: 0 metformin 1,000 mg tablet 1,000 mg PO BID RF: 0 metformin 1,000 mg Tablet 500 mg PO DAILY RF: 0 ondansetron 4 mg tablet,disintegrating 4 mg PO Q6H PRN (Reason: nausea and vomiting) Qty: 20 RF: 0 Glucose: Test Strips 0 str miscellaneous BID RF: 0 Referrals: [facility] [Provider Group] Taylor Manning ARNP [Primary Care Provider] -
[2019-04-27] MEDS: KETOROLAC 60 MG/2 ML VIAL 30 MG IV (13:20)
[2019-04-27 13:57] LABS: Add Manual Diff / Slide Review NO; Alanine Aminotransferase 26 IU/L (9-52); Albumin 4.3 g/dL (3.5-5.0); Albumin Globulin Ratio 1.4 (1.0-2.8); Alkaline Phosphatase 85 U/L (38-126); Aspartate Aminotransferase 36 IU/L (14-36); BUN Creatinine Ratio 27.1 (6-22); Basophils Absolute Auto 200 /uL (0-100); Basophils Percent Auto 3.1 % (0-2); Bilirubin Total 0.5 mg/dL (0.2-1.3); Blood Urea Nitrogen 19 mg/dL (7-17); Calcium 10.1 mg/dL (8.4-10.2); Carbon Dioxide 26 mmol/L (22-32); Chloride 103 mmol/L (98-107); Eosinophils Absolute Auto 200 /uL (0-450); Eosinophils Percent Auto 2.4 % (2-4); Estimated Glomerular Filt Rate > 60.0 mL/min (>60); Globulin 3.1 g/dL (1.7-4.1); Glucose 115 mg/dL (70-100); HEMOLYSIS 17 (0-50); Hematocrit 38.2 % (36-46); Hemoglobin 13.2 g/dL (12.0-16.0); Lipase 134 U/L (23-300); Lymphocytes Absolute Auto 2400 /uL (1100-4500); Lymphocytes Percent Auto 36.1 % (25-40); Mean Corpuscular HGB Conc 34.5 % (30-36); Mean Corpuscular Hemoglobin 31.8 PG (26-34); Mean Corpuscular Volume 92.1 fL (80-100); Monocytes Absolute Auto 700 /uL (0-900); Monocytes Percent Auto 10.3 % (3-14); Neutrophils Absolute Auto 3300 /uL (1500-7000); Neutrophils Percent Auto 48.1 % (50-75); Platelet Count 224 X10^3/uL (150-400); Potassium 4.7 mmol/L (3.4-5.1); Red Blood Cell Count 4.15 X10^6/uL (4.0-5.2); Red Cell Distribution Width 12.3 % (11.6-14.8); Sodium 140 mmol/L (137-145); Total Protein 7.4 g/dL (6.3-8.2); White Blood Cell Count 6.8 X10^3/uL (4.5-11.0)
[2019-04-27 14:21] VITALS: BP 127/66; PULSE 57; RESP 16; O2SAT 99
== END 2019-04-27 15:27 | disposition home or self-care (01) ==
PROVIDERS: Emergency Provider Emergency Medicine; PCP Internal Medicine
DX: R10.11 Right upper quadrant pain (principal)
CPT/HCPCS: 36415; 76705; 80053; 83690; 85025; 93005; 96374; 99282; 99285; J1885

== ENCOUNTER → 2019-05-19 09:49 | Outpatient (CLI) | payer OTHER, SELFPAY ==
--- NOTE | 2019-05-19 | DI.NM.S_ITS ---
PROCEDURE: NM HIDA WITH CCK PHARMACEUTICAL: 5.0 mCi Tc-99m mebrofenin IV; 1.8 mcg CCK IV. INDICATIONS: Right upper quadrant pain TECHNIQUE: Following intravenous administration of Tc-99m mebrofenin, sequential anterior abdominal images were obtained. To evaluate the contractile response of the gallbladder in response to Cholecystokinin (CCK), sincalide (0.02 ?g/kg) was administered by slow intravenous infusion approximately 60 minutes after the administration of the radiopharmaceutical. Sequential imaging was continued for 30 minutes after the start of CCK infusion. Gallbladder ejection fraction was calculated. COMPARISON: [facility], ABDOMEN LIMITED, 04/27/2019, 13:29. FINDINGS: Biliary scan: There is normal tracer uptake and excretion by the liver. There is normal visualization of the intrahepatic ducts, common bile duct, and gallbladder. There is normal tracer transit into the duodenum. CCK stimulation: There is markedly decreased contractile response of the gallbladder to CCK infusion. The calculated gallbladder ejection fraction is 7%; normal values are above 35%. It has been shown that any patient abdominal pain after CCK administration is related to the rate of CCK injection, rather than to any underlying gallbladder disease (Clinical Nuclear Medicine 2012; 37: 63-70. Journal of Nuclear Medicine 2014; 55: 1-9). IMPRESSION: 1. Gallbladder dysfunction with markedly decreased gallbladder ejection fraction suggestive of chronic cholecystitis. Dictated by: Choco Stringer M.D. on 05/19/2019 at 16:51 Approved by: Choco Stringer M.D. on 05/19/2019 at 16:54
== END ==
PROVIDERS: PCP Internal Medicine; Visit Provider Internal Medicine
DX: R10.11 Right upper quadrant pain (principal); R19.7 Diarrhea, unspecified; K82.8 Other specified diseases of gallbladder
CPT/HCPCS: 78227; A9537; J2805

== ENCOUNTER 2019-05-26 06:29 | Day surgery (SDC) | payer OTHER, SELFPAY ==
[2019-05-26] VITALS (16 sets, daily range): BP systolic 116–153; BP diastolic 57–99; PULSE 77–92; RESP 10–17; TEMP 36.3–36.8; O2SAT 94–98; BMI 36.3
--- NOTE | 2019-05-26 | PATH_ITS ---
[facility] Accession Number: [id number] . 01 Material submitted: . gallbladder - GALLBLADDER AND CONTENTS . 01 Clinical history: . LAP RANDA . 02 Diagnosis: Gallbladder and Contents, Cholecystectomy: Gallbladder with chronic cholecystitis and cholesterolosis. Attached portion of subcapsular hepatic parenchyma with macrovesicular steatosis (15-20% of hepatocytes); no significant fibrosis or inflammation identified. MRV 05/28/2019 1520 Local . 02 Electronically signed: . Mariam Thompson MD, Pathologist NPI- [id number] . 01 Gross description: . Received in formalin, labeled gallbladder + contents, is an opened gallbladder (length-3.4 cm, diameter-2.5 cm) with maguire-pink smooth shiny serosa and an obliterated cystic duct. A piece of english possible hepatic tissue (3.0 x 2.5 x 0.8 cm) is attached to the fundus. No lymph nodes are identified. The lumen is void of contents. No calculi are identified. The mucosa is english and rough. The wall is up to 0.1 cm thick. No nodules, masses or lesions are identified. Section code: (A1) auto service representative tissue from the most proximal end and two auto service representative serial sections from the body; (A2) two longitudinal sections from the fundus; (A3) possible hepatic tissue, auto service representative. ([id number]) /MRV 05/27/2019 1108 Local . 02 Pathologist provided ICD-10: K81.1 . 02 CPT . 852654 Performed at: [address] [facility], [place], [place] [id number] MD Choco Bailey MD Phone: [phone] Performed at: [facility] [address] [place] [id number] MD Sandra Schmitt MD Phone: [phone]
--- NOTE | 2019-05-26 07:37 | PM.PREOP ---
Pre-operative Note Interval Note History & Physical reviewed/Exam performed by Physician: Yes Changes to H&P: No
[2019-05-26] MEDS: LACTATED RINGERS 1,000 ML 100 ML IV (07:45)
[2019-05-26] MEDS: CLINDAMYCIN 900 MG/50 ML PIGGYBACK 50 MG IV (08:05)
--- NOTE | 2019-05-26 08:22 | SUR.OPER ---
Supine on padded OR bed, head on pillow, safety belt at thigh, bilateral arms secured on padded arm boards <90 degrees abduction. Legs uncrossed. Padded footboard in place. Tape over blanket to secure lower legs.
[2019-05-26] MEDS: BUPIVACAINE 0.25% (PF) VIAL 30 ML INJ (08:30)
--- NOTE | 2019-05-26 09:40 | PM.OP.1 ---
Operative Date/Time/Diagnoses Date of procedure: 05/26/19 Time of procedure: 09:41 Pre-op diagnosis: Biliary dyskinesia Post-op diagnosis: same Procedure & Clinicians Procedure: Laparoscopic cholecystectomy Same procedure as scheduled: Yes Indications: This is a 58-year-old woman with biliary colic who underwent a workup which includes HIDA scan that demonstrated an ejection fraction of 7%. She presents today for elective laparoscopic cholecystectomy Surgeon: Arnulfo Rae Click Yes if Unassisted: Yes Anesthesia Type: General Operative Notes Findings: Intrahepatic contracted gallbladder Specimen(s): other (Gallbladder) Estimated Blood Loss (mL): 20 Procedure in detail: The patient was brought to the operating room placed supine on the table. Bilateral lower extremity compression devices were applied. General anesthesia was induced and they were intubated with an endotracheal tube. They received 900 mg Clindamycin prior to skin incision. A time-out was performed to ensure the correct patient procedure necessary equipment within the operating room. They were then prepped and draped in the usual sterile fashion. Infraumbilical incision was made the umbilical stalk was grasped and elevated and the fascia was sharply incised. The abdomen was entered atraumatically. A 10 mm trocar was then placed into the abdomen. Pneumoperitoneum was established. The laparoscopic camera was inserted into the abdomen inspection was made that demonstrated no evidence of injury upon entry. We then placed our working ports the 1st 5 mm port high in the epigastrium and then 2 in the right upper quadrant. The gallbladder was grasped and retracted over the liver and grasped laterally by the fundus. The triangle of Calot was exposed. The triangle of calot was then skeletonized using hook electrocautery and demonstrated the cystic duct clearly entering the gallbladder the cystic artery and the liver and in the background. With the critical view of safety established the cystic duct was clipped twice proximally and once distally and then sharply divided and the cystic artery was taken in the same fashion. Next the gallbladder was removed from the liver bed using electro cautery. The liver bed was then inspected for hemostasis and this was achieved. The abdomen was irrigated with sterile saline and inspection was made that showed the clips in good position. The specimen was removed using Endo-Catch. The abdomen was desufflated. The the fascia of the umbilicus was closed with 0 Vicryl in a [id number] fashion. Skin incisions were irrigated and closed with 4-0 Monocryl. The wounds were sealed with Dermabond. Patient emerged from general anesthesia was extubated and transferred to the postoperative care unit missed stable condition. The sponge and instrument count at the end of the operation was correct. Complications: none Post-operative Condition: stable Disposition: same day surgery
[2019-05-26] MEDS: fentaNYL 100 MCG/2 ML INJ 50 MCG IV ×3 (09:46→10:18)
--- NOTE | 2019-05-26 09:48 | SUR.PHASEI ---
verbal report of glucose results to Dr. Thomas.
[2019-05-26] MEDS: KETOROLAC 30 MG/ML VIAL IV (10:09)
[2019-05-26] MEDS: OXYCODONE/ACETAMINOPHEN 5/325 TABLET 1 TAB PO (11:23)
--- NOTE | 2019-05-26 12:13 | SUR.PHASEII ---
Pt wanting to get dressed, states pain tolerable. Dressing with quarter size pink drainage. assisted pt to dress. Pt left when ready and left in stable condition.
--- NOTE | 2019-05-26 12:53 | SUR.PHASEII ---
Pt arrived into Phase II at 1037 comfortable rating her pain 3/10 but still feeling sleepy enough that she needed a little more time to wake up. Dressing evaluated as GLEN Acevedo had to reinforce the surgical site at the umbilicus r/t oozing. Dressing did show pale sang out put but was not changed until just prior to her departure. I removed old dressing and tape and noted some pooling of fluid inside the umbilicus which a soaked up with a 2x2. Steri Strips where intact and after monitoring the site for a few minutes it did not appear to be oozing. I placed a compression 2x2 over the incision site along with a tega derm. Pt also expressed an increase in pain 5/10 so I administered her another percocet, took another set of vitals again they were stable and ready the pt for discharge to home. Discharge was later done by Rashid Chance RN.
== END 2019-05-26 12:16 | disposition home or self-care (01) ==
PROVIDERS: PCP Internal Medicine; Visit Provider Surgery
PROC: 0FT44ZZ Resection of Gallbladder, Percutaneous Endoscopic Approach (ICD-10-PCS; CPT 47562; principal; 2019-05-26 07:45)
DX: K81.1 Chronic cholecystitis (principal); E11.9 Type 2 diabetes mellitus without complications; Z79.84 Long term (current) use of oral hypoglycemic drugs; E66.9 Obesity, unspecified; K21.9 Gastro-esophageal reflux disease without esophagitis
CPT/HCPCS: 47562; J1885; J2405; J2704; J3010

== ENCOUNTER 2019-05-29 16:45 | Emergency (ER) | payer OTHER, SELFPAY ==
[2019-05-29] VITALS (12 sets, daily range): BP systolic 103–157; BP diastolic 46–92; PULSE 104–192; RESP 16–32; TEMP 37.1–37.2; O2SAT 95–100; BMI 36.7
[2019-05-29] MEDS: SODIUM CHLORIDE 0.9% 1,000 ML 1000 ML IV (16:45)
--- NOTE | 2019-05-29 16:48 | DI.RAD.S_ITS ---
PROCEDURE: XR CHEST 1V INDICATIONS: fast heart beat TECHNIQUE: One view of the chest was acquired. COMPARISON: Same day abdominal radiograph. FINDINGS: Surgical changes and devices: External pacer pads overlie the chest. Lungs and pleura: Minimal streaky opacity at the lung bases most compatible with atelectasis. No consolidation. No pleural effusions or pneumothorax. Mediastinum: Mediastinal contours appear normal. Heart size is normal. Bones and chest wall: No suspicious bony lesions. Overlying soft tissues appear unremarkable. IMPRESSION: Minimal streaky opacity at the lung bases is most compatible with atelectasis. Dictated by: Quinn Dukes M.D. on 05/29/2019 at 17:41 Approved by: Quinn Dukes M.D. on 05/29/2019 at 17:42
--- NOTE | 2019-05-29 16:48 | DI.RAD.S_ITS ---
PROCEDURE: XR ABDOMEN 1V INDICATIONS: fast heart beat, no BM since surgery Saturday TECHNIQUE: One view of the abdomen acquired. COMPARISON: None. FINDINGS: Surgical changes and devices: None. Bowel: Multiple dilated loops of small bowel in the midabdomen. This measures up to approximately 3.7 cm. No obvious pneumoperitoneum on this supine radiograph. Stomach is not significantly dilated. Trace gas in the colon. Soft tissues: No suspicious abdominal calcifications. Visualized solid organ contours appear normal in size. Surgical clips in the right upper quadrant. Bones: No suspicious bony lesions. IMPRESSION: Multiple dilated loops of small bowel. Findings suspicious for small bowel obstruction versus ileus. Dictated by: Quinn Dukes M.D. on 05/29/2019 at 17:39 Approved by: Quinn Dukes M.D. on 05/29/2019 at 17:41
--- NOTE | 2019-05-29 16:50 | ED_ITS ---
HPI - Arrhythmia/Palpitations <Rox White, - Last Filed: 05/30/19 07:37> General Chief Complaint: Arrhythmia/Palpitations Stated Complaint: Weakness/Diaphoretic Time Seen by Provider: 05/29/19 16:48 Source: patient, family and EMS Mode of arrival: EMS Limitations: no limitations History of Present Illness HPI narrative: 58-year-old female comes to the emergency department with compla int of weakness feeling diaphoretic and abdominal pain. Patient had a cholecystectomy on Saturday. She states it was uneventful. Since then she has been passing gas but not has not had a bowel movement. She has been nauseated but no vomiting. She states she has abdominal pain but it is ?okay?. She is complaining mostly about the gassed secondary to her cholecystectomy. She denies any chest pain or pressure. She does feel little bit short of breath like she can't take a deep breath. described confusion but his description is that when he asked for question she does not answer right away. She has also seemed a little unsteady today. No fevers. They did note she has been diaphoretic. She is on metformin for diabetes, she takes citalopram. Besides her cholecystectomy she had a tubal 30 years ago, knee scope and surgery for trigger finger. Her only allergies are penicillin. She quit smoking 25 years ago, she smokes alcohol 1 to 2 times a week and denies any illicit. She does use CBD oil as needed. Her primary care's Taylor Mannnig she does not have a grocery clerk and has no cardiac history, no embolic history. Related Data Home Medications Medication Instructions Recorded Confirmed Glucose: Test Strips 0 str MISCELLANEOUS BID 04/14/19 05/29/19 citalopram [Celexa] 20 mg PO QPM 04/14/19 05/29/19 metformin 1,000 mg PO BID 04/14/19 05/29/19 metformin 500 mg PO DAILY 04/14/19 05/29/19 Previous Rx's Medication Instructions Recorded acetaminophen [Tylenol] 650 mg PO QID PRN #60 cap 05/26/19 tramadol 50 mg PO Q6H PRN #30 tab 05/26/19 Allergies Allergy/AdvReac Type Severity Reaction Status Date / Time Penicillins Allergy Mild RASH Verified 05/29/19 17:10 Review of Systems <Rox White DO - Last Filed: 05/30/19 07:37> Review of Systems ROS Unobtainable: All systems reviewed & are unremarkable except as noted in HPI and below Patient History <Rox White DO - Last Filed: 05/30/19 07:37> Medical History Ankle pain (Chronic ~2013) Depression (Chronic ~1979) Diabetes mellitus (Chronic ~2006) Foot pain (Chronic ~2013) Fractures (Resolved ~1969) Hay fever (Chronic ~1979) Mumps (Resolved) Vertigo (Chronic ~2006) Vision disorder (Chronic) Surgical History Anesthesia (Resolved) Status post tubal ligation (~1999) Trigger finger of right thumb (Resolved ~1999) Family History Father Cancer Heart disease Grandfather Diabetes mellitus Heart disease Stroke Grandmother Diabetes mellitus Stroke Mother Heart disease Grandmother Heart disease Social History household members: spouse Smoking Status: Former smoker alcohol intake frequency: a few times a week Substance Use Type: does not use Exam <Rox White DO - Last Filed: 05/30/19 07:37> Narrative Exam Narrative: GENERAL: Alert and oriented x three, pale . Patient does not appear diaphoretic. HEENT: Head normocephalic, atraumatic, EOMI, pupils reactive, face symmetric, moist mucous membranes NECK: Supple, full range of motion CARDIOVASCULAR: Tachycardic but Regular rate and rhythm without murmurs, rubs or gallops. RESPIRATORY: Breath sounds equal bilaterally, no wheezes rales or rhonchi. ABDOMEN: Soft, mildly tender, moderately distended, patient has incisions consistent with cholecystectomy they appear clean dry and intact. Normoactive bowel sounds all 4 quadrants. No guarding or rebound, rigidity, no mass : No CVA tenderness EXTREMITIES: Normal range of motion, no clubbing or edema. 2+ pulses all 4 extremities. Neurovascularly intact NEUROLOGICAL: Cranial nerves II through XII grossly intact. Moving all extremi ties SKIN: Warm, dry, no petechiae, no rashes or lesions. Initial Vital Signs Initial Vital Signs: Vital Signs Temperature 98.7 F 05/29/19 16:47 Pulse Rate 192 H 05/29/19 16:47 Respiratory Rate 32 H 05/29/19 16:47 Blood Pressure 103/46 L 05/29/19 16:47 Pulse Oximetry 95 05/29/19 16:47 <Emiliano Montiel DO - Last Filed: 05/29/19 22:47> Initial Vital Signs Initial Vital Signs: Vital Signs Temperature 98.7 F 05/29/19 16:47 Pulse Rate 192 H 05/29/19 16:47 Respiratory Rate 32 H 05/29/19 16:47 Blood Pressure 103/46 L 05/29/19 16:47 Pulse Oximetry 95 05/29/19 16:47 Course <Rox White DO - Last Filed: 05/30/19 07:37> Orders Ordered: Discontinued Medications Adenosine (Adenocard) 6 mg IV NOW ONE Stop: 05/29/19 16:49 Last Admin: 05/29/19 17:55 Dose: Not Given Documented by: KENYON Aspirin (Aspirin Chew) 324 mg PO NOW ONE Stop: 05/29/19 18:03 Last Admin: 05/29/19 18:32 Dose: 324 mg Documented by: KENYON Sodium Chloride (Normal Saline 0.9%) 1,000 mls @ 1,000 mls/hr IV BOLUS ONE Stop: 05/29/19 17:47 Last Infusion: 05/29/19 17:50 Dose: 0 mls/hr Documented by: Admin: 05/29/19 16:45 Dose: 1,000 mls/hr Documented by: KENYON Sodium Chloride (Normal Saline 0.9%) 1,000 mls @ 200 mls/hr IV CONT MURALI Last Infusion: 05/29/19 20:56 Dose: 0 mls/hr Documented by: Infusion: 05/29/19 19:21 Dose: 999 mls/hr Documented by: Admin: 05/29/19 17:55 Dose: 200 mls/hr Documented by: KENYON Metronidazole (Flagyl) 500 mg in 100 mls @ 100 mls/hr IV NOW ONE Stop: 05/29/19 20:47 Last Infusion: 05/29/19 21:10 Dose: 0 mls/hr Documented by: Admin: 05/29/19 20:00 Dose: 100 mls/hr Documented by: PACO Levofloxacin (Levaquin) 750 mg in 150 mls @ 100 mls/hr IV NOW ONE Stop: 05/29/19 21:17 Last Infusion: 05/29/19 22:59 Dose: 0 mls/hr Documented by: Admin: 05/29/19 21:16 Dose: 100 mls/hr Documented by: PRUDENCIO Sodium Chloride (Normal Saline 0.9%) 1,000 mls @ 150 mls/hr IV CONT MURALI Last Infusion: 05/29/19 22:59 Dose: 150 mls/hr Documented by: Admin: 05/29/19 21:16 Dose: 150 mls/hr Documented by: PRUDENCIO Metoprolol Tartrate (Lopressor) 5 mg IV NOW ONE Stop: 05/29/19 19:25 Last Admin: 05/29/19 19:45 Dose: 5 mg Documented by: PACO Morphine Sulfate (Morphine) 2 mg IV NOW ONE Stop: 05/29/19 18:46 Last Admin: 05/29/19 18:40 Dose: 2 mg Documented by: KENYON Morphine Sulfate (Morphine) 2 mg IV NOW ONE Stop: 05/29/19 20:11 Last Admin: 05/29/19 20:39 Dose: 2 mg Documented by: PACO Morphine Sulfate (Morphine) 2 mg IV NOW ONE Stop: 05/29/19 22:45 Last Admin: 05/29/19 22:49 Dose: 2 mg Documented by: PRUDENCIO Vital Signs Vital signs: Vital Signs - 8 hr 05/29/19 16:47 05/29/19 17:13 05/29/19 17:15 Temperature 98.7 F Pulse Rate 192 H 144 H 140 H Respiratory Rate 32 H 16 Blood Pressure 103/46 L Blood Pressure [Right Arm] 129/66 Pulse Oximetry 95 95 95 05/29/19 17:31 05/29/19 17:58 05/29/19 18:31 Temperature Pulse Rate 140 H 138 H 133 H Respiratory Rate 16 16 16 Blood Pressure Blood Pressure [Right Arm] 139/60 144/66 H 157/73 H Pulse Oximetry 95 95 97 05/29/19 19:30 05/29/19 19:54 05/29/19 19:55 Temperature Pulse Rate 130 H 107 H 104 H Respiratory Rate 16 22 18 Blood Pressure Blood Pressure [Right Arm] 149/81 H 134/92 H 104/86 Pulse Oximetry 97 99 100 05/29/19 20:45 05/29/19 21:33 Temperature 98.9 F Pulse Rate 116 H 116 H Respiratory Rate 18 25 H Blood Pressure Blood Pressure [Right Arm] 143/81 H 139/72 Pulse Oximetry 99 100 <Emiliano Montiel, DO - Last Filed: 05/29/19 22:47> Orders Ordered: Discontinued Medications Adenosine (Adenocard) 6 mg IV NOW ONE Stop: 05/29/19 16:49 Last Admin: 05/29/19 17:55 Dose: Not Given Documented by: KENYON Aspirin (Aspirin Chew) 324 mg PO NOW ONE Stop: 05/29/19 18:03 Last Admin: 05/29/19 18:32 Dose: 324 mg Documented by: KENYON Sodium Chloride (Normal Saline 0.9%) 1,000 mls @ 1,000 mls/hr IV BOLUS ONE Stop: 05/29/19 17:47 Last Infusion: 05/29/19 17:50 Dose: 0 mls/hr Documented by: Admin: 05/29/19 16:45 Dose: 1,000 mls/hr Documented by: KENYON Sodium Chloride (Normal Saline 0.9%) 1,000 mls @ 200 mls/hr IV CONT MURALI Last Infusion: 05/29/19 20:56 Dose: 0 mls/hr Documented by: Infusion: 05/29/19 19:21 Dose: 999 mls/hr Documented by: Admin: 05/29/19 17:55 Dose: 200 mls/hr Documented by: KENYON Metronidazole (Flagyl) 500 mg in 100 mls @ 100 mls/hr IV NOW ONE Stop: 05/29/19 20:47 Last Infusion: 05/29/19 21:10 Dose: 0 mls/hr Documented by: Admin: 05/29/19 20:00 Dose: 100 mls/hr Documented by: PACO Levofloxacin (Levaquin) 750 mg in 150 mls @ 100 mls/hr IV NOW ONE Stop: 05/29/19 21:17 Last Infusion: 05/29/19 22:59 Dose: 0 mls/hr Documented by: Admin: 05/29/19 21:16 Dose: 100 mls/hr Documented by: PRUDENCIO Sodium Chloride (Normal Saline 0.9%) 1,000 mls @ 150 mls/hr IV CONT MURALI Last Infusion: 05/29/19 22:59 Dose: 150 mls/hr Documented by: Admin: 05/29/19 21:16 Dose: 150 mls/hr Documented by: PRUDENCIO Metoprolol Tartrate (Lopressor) 5 mg IV NOW ONE Stop: 05/29/19 19:25 Last Admin: 05/29/19 19:45 Dose: 5 mg Documented by: PACO Morphine Sulfate (Morphine) 2 mg IV NOW ONE Stop: 05/29/19 18:46 Last Admin: 05/29/19 18:40 Dose: 2 mg Documented by: KENYON Morphine Sulfate (Morphine) 2 mg IV NOW ONE Stop: 05/29/19 20:11 Last Admin: 05/29/19 20:39 Dose: 2 mg Documented by: PACO Morphine Sulfate (Morphine) 2 mg IV NOW ONE Stop: 05/29/19 22:45 Last Admin: 05/29/19 22:49 Dose: 2 mg Documented by: PRUDENCIO Vital Signs Vital signs: Vital Signs - 8 hr 05/29/19 16:47 05/29/19 17:13 05/29/19 17:15 Temperature 98.7 F Pulse Rate 192 H 144 H 140 H Respiratory Rate 32 H 16 Blood Pressure 103/46 L Blood Pressure [Right Arm] 129/66 Pulse Oximetry 95 95 95 05/29/19 17:31 05/29/19 17:58 05/29/19 18:31 Temperature Pulse Rate 140 H 138 H 133 H Respiratory Rate 16 16 16 Blood Pressure Blood Pressure [Right Arm] 139/60 144/66 H 157/73 H Pulse Oximetry 95 95 97 05/29/19 19:30 05/29/19 19:54 05/29/19 19:55 Temperature Pulse Rate 130 H 107 H 104 H Respiratory Rate 16 22 18 Blood Pressure Blood Pressure [Right Arm] 149/81 H 134/92 H 104/86 Pulse Oximetry 97 99 100 05/29/19 20:45 05/29/19 21:33 Temperature 98.9 F Pulse Rate 116 H 116 H Respiratory Rate 18 25 H Blood Pressure Blood Pressure [Right Arm] 143/81 H 139/72 Pulse Oximetry 99 100 MDM - Arrhythmia/Palpitations <Rox White DO - Last Filed: 05/30/19 07:37> Lab Data Attestation: I reviewed the patient's lab results. Result diagrams: 05/29/19 17:14 05/29/19 17:14 Labs: Lab Results 05/29/19 05/29/19 05/29/19 Range/Units 17:14 17:14 17:14 WBC 14.0 H (4.5-11.0) X10^3/uL RBC 4.10 (4.0-5.2) X10^6/uL Hgb 13.0 (12.0-16.0) g/dL Hct 38.5 (36-46) % MCV 93.9 (80-100) fL MCH 31.7 (26-34) PG MCHC 33.8 (30-36) % RDW 12.5 (11.6-14.8) % Plt Count 288 (150-400) X10^3/uL Neut % (Auto) 87.2 H (50-75) % Lymph % (Auto) 4.8 L (25-40) % [place] % (Auto) 7.5 (3-14) % Eos % (Auto) 0.2 L (2-4) % Baso % (Auto) 0.3 (0-2) % Neut # (Auto) 07314 H (7947-1889) /uL Lymph # (Auto) 700 L (9716-4927) /uL [place] # (Auto) 1000 H (0-900) /uL Eos # (Auto) 0 (0-450) /uL Baso # (Auto) 0 (0-100) /uL PT 13.6 H (10.1-12.7) SECONDS INR 1.2 (0.9-1.3) APTT 30 (26.4-36.2) SECONDS D-Dimer 4370 H (<230) ng/mL Sodium 130 L (137-145) mmol/L Potassium 4.2 (3.4-5.1) mmol/L Chloride 95 L (98-107) mmol/L Carbon Dioxide 22 (22-32) mmol/L BUN 14 (7-17) mg/dL Creatinine 0.90 (0.52-1.04) mg/dL Estimated GFR > 60.0 (>60) mL/min BUN/Creatinine Ratio 15.6 (6-22) Glucose 314 H (70-100) mg/dL Lactate (0.7-2.1) mmol/L Calcium 10.4 H (8.4-10.2) mg/dL Magnesium 1.8 (1.6-2.3) mg/dL Total Bilirubin 3.9 H (0.2-1.3) mg/dL AST 43 H (14-36) IU/L ALT 45 H (<35) IU/L Alkaline Phosphatase 136 H (38-126) U/L Total Creatine Kinase 32 (30-135) U/L CK-MB (CK-2) TNP CK-MB (CK-2) Rel Index TNP Troponin I 0.179 H* (0.01-0.034) ng/mL Total Protein 7.5 (6.3-8.2) g/dL Albumin 4.0 (3.5-5.0) g/dL Globulin 3.5 (1.7-4.1) g/dL Albumin/Globulin Ratio 1.1 (1.0-2.8) Procalcitonin (<0.5) ng/mL TSH (0.47-4.68) uIU/mL 05/29/19 05/29/19 05/29/19 Range/Units 17:14 17:14 17:14 WBC (4.5-11.0) X10^3/uL RBC (4.0-5.2) X10^6/uL Hgb (12.0-16.0) g/dL Hct (36-46) % MCV (80-100) fL MCH (26-34) PG MCHC (30-36) % RDW (11.6-14.8) % Plt Count (150-400) X10^3/uL Neut % (Auto) (50-75) % Lymph % (Auto) (25-40) % [place] % (Auto) (3-14) % Eos % (Auto) (2-4) % Baso % (Auto) (0-2) % Neut # (Auto) (2344-3379) /uL Lymph # (Auto) (3975-7322) /uL [place] # (Auto) (0-900) /uL Eos # (Auto) (0-450) /uL Baso # (Auto) (0-100) /uL PT (10.1-12.7) SECONDS INR (0.9-1.3) APTT (26.4-36.2) SECONDS D-Dimer Cancelled (<230) ng/mL Sodium (137-145) mmol/L Potassium (3.4-5.1) mmol/L Chloride (98-107) mmol/L Carbon Dioxide (22-32) mmol/L BUN (7-17) mg/dL Creatinine (0.52-1.04) mg/dL Estimated GFR (>60) mL/min BUN/Creatinine Ratio (6-22) Glucose (70-100) mg/dL Lactate (0.7-2.1) mmol/L Calcium (8.4-10.2) mg/dL Magnesium (1.6-2.3) mg/dL Total Bilirubin (0.2-1.3) mg/dL AST (14-36) IU/L ALT (<35) IU/L Alkaline Phosphatase (38-126) U/L Total Creatine Kinase (30-135) U/L CK-MB (CK-2) CK-MB (CK-2) Rel Index Troponin I (0.01-0.034) ng/mL Total Protein (6.3-8.2) g/dL Albumin (3.5-5.0) g/dL Globulin (1.7-4.1) g/dL Albumin/Globulin Ratio (1.0-2.8) Procalcitonin 0.95 H (<0.5) ng/mL TSH 2.23 (0.47-4.68) uIU/mL 05/29/19 05/29/19 Range/Units 17:14 21:03 WBC (4.5-11.0) X10^3/uL RBC (4.0-5.2) X10^6/uL Hgb (12.0-16.0) g/dL Hct (36-46) % MCV (80-100) fL MCH (26-34) PG MCHC (30-36) % RDW (11.6-14.8) % Plt Count (150-400) X10^3/uL Neut % (Auto) (50-75) % Lymph % (Auto) (25-40) % [place] % (Auto) (3-14) % Eos % (Auto) (2-4) % Baso % (Auto) (0-2) % Neut # (Auto) (4854-0738) /uL Lymph # (Auto) (7956-6361) /uL [place] # (Auto) (0-900) /uL Eos # (Auto) (0-450) /uL Baso # (Auto) (0-100) /uL PT (10.1-12.7) SECONDS INR (0.9-1.3) APTT (26.4-36.2) SECONDS D-Dimer (<230) ng/mL Sodium (137-145) mmol/L Potassium (3.4-5.1) mmol/L Chloride (98-107) mmol/L Carbon Dioxide (22-32) mmol/L BUN (7-17) mg/dL Creatinine (0.52-1.04) mg/dL Estimated GFR (>60) mL/min BUN/Creatinine Ratio (6-22) Glucose (70-100) mg/dL Lactate 3.4 H 1.3 (0.7-2.1) mmol/L Calcium (8.4-10.2) mg/dL Magnesium (1.6-2.3) mg/dL Total Bilirubin (0.2-1.3) mg/dL AST (14-36) IU/L ALT (<35) IU/L Alkaline Phosphatase (38-126) U/L Total Creatine Kinase (30-135) U/L CK-MB (CK-2) CK-MB (CK-2) Rel Index Troponin I (0.01-0.034) ng/mL Total Protein (6.3-8.2) g/dL Albumin (3.5-5.0) g/dL Globulin (1.7-4.1) g/dL Albumin/Globulin Ratio (1.0-2.8) Procalcitonin (<0.5) ng/mL TSH (0.47-4.68) uIU/mL Imaging Data CT scan - chest: Radiologist's impression: [facility] [address] [place] [address] CT Scan Report Signed Patient: Renuka Floyd KMR#: [id number] : 2Acct:[id number] Age/Sex: 58 / FDate of Service: 05/29/19 Loc: ED Accession Number: [id number] Procedure: CT angio chest PE protocol Ordering Provider: Rox White D.O. PROCEDURE: CT ANGIO CHEST PE PROTOCOL INDICATIONS: concern for PE, tachycardia, recent surgery TECHNIQUE: After the administration of intravenous contrast, 2 mm thick sections acquired from the pulmonary apices to the posterior costophrenic angles. 3-dimensional maximum intensity projection (MIP) coronal and sagittal reformats were then acquired through the thorax. For radiation dose reduction, the following was used: automated exposure control, adjustment of mA and/or kV according to patient size. COMPARISON: None. FINDINGS: Image quality: Good. Diagnostic to the level of the segmental pulmonary arteries. Pulmonary artery opacification is slightly delayed with denser contrast in the aorta. Pulmonary arteries: Pulmonary arteries are normal in size, and demonstrate no intraluminal filling defects to suggest central pulmonary embolism. Lungs and pleura: Mild consolidative opacities at the lung bases. Minimal ground glass opacity in the right middle and upper lobes. No pleural effusions or pneumothorax. Central and peripheral airways are patent. Mediastinum: Heart size is normal, without pericardial effusion. No mediastinal or hilar adenopathy. Thoracic aorta is normal in caliber and enhancement. Esophagus is normal in caliber, without significant hiatal hernia. Bones and chest wall: No suspicious bony lesions. Moderate degenerative change in the mid thoracic spine. Ribs and thoracic spine appear intact throughout. Thyroid gland is unremarkable. No axillary or supraclavicular adenopathy. Abdomen: Please see separately dictated CT abdomen and pelvis subsequently performed. IMPRESSION: 1. No pulmonary embolism. 2. Mild consolidative opacities at the lung bases. Few areas of minimal chronic glass opacity. This may be due to atelectasis rather than pneumonia given its platelike appearance. 3. No acute aortic syndrome. Comment: Findings were discussed with Dr. White at the time of dictation. Dictated by: Quinn Dukes M.D. on 05/29/2019 at 18:32 Approved by: Quinn Dukes M.D. on 05/29/2019 at 18:40 CT scan - abdomen: Radiologist's impression: [address] [address] [address] Scan Report Signed Patient: Renuka Floyd KMR#: [id number] : 2Acct:[id number] Age/Sex: 58 / FDate of Service: 05/29/19 Loc: ED Accession Number: [id number] Procedure: CT abdomen pelvis w con Ordering Provider: Rox White D.O. PROCEDURE: CT ABDOMEN PELVIS W CON INDICATIONS: concern for PE, recent cholecystectomy. TECHNIQUE: After the administration of intravenous contrast, 5 mm thick sections acquired from the diaphragm to the symphysis. 5 mm coronal and sagittal reformats were acquired. For radiation dose reduction, the following was used: automated exposure control, adjustment of mA and/or kV according to patient size. COMPARISON: Same day CT pulmonary angiogram. Abdominal ultrasound 04/27/2019. FINDINGS: Image quality: Excellent. ABDOMEN: Lung bases: A platelike consolidative opacity of the lung bases. A few other areas of ground glass opacity. Heart size is normal. Solid organs: Liver is normal in size and enhancement. No focal lesion. Gallbladder is surgically absent. There is a small volume of fluid in the gallbladder fossa. This tracks inferiorly into the right pericolic gutter. Questionable layering of this fluid which may be artifactual due to beam hardening artifact. There is also a moderate amount of free fluid in the pelvis. Biliary system is non dilated. Pancreas enhances normally. Spleen is normal in size and enhancement. Trace free fluid adjacent to the spleen. No adrenal nodules. Kidneys demonstrate normal size and enhancement, without hydronephrosis. Scarring at the inferior pole of the right kidney. No solid renal mass. Peritoneum and bowel: Prominent loops of small bowel in the midabdomen with a gradual transition to a normal caliber. Small amount of fecal residue in the colon. A few scattered colonic diverticula. The appendix is not identified. No free fluid or air. Nodes and vessels: No retroperitoneal or mesenteric adenopathy by size criteria. Aorta and inferior vena cava are normal in size. Miscellaneous: Tiny periumbilical hernia. PELVIS: Genitourinary: Bladder wall thickness is normal. Miscellaneous: No inguinal hernias or adenopathy. Bones: No suspicious bony lesions. Minimal sclerosis at the left SI joint. No vertebral body compression fractures. IMPRESSION: 1. Moderate amount of free fluid in the abdomen post recent cholecystectomy. This may be serous, hemorrhagic, or less likely due to bile leak due to the quantity. 2. No biliary ductal dilatation seen. 3. Prominent small bowel loops in the midabdomen. No discrete transition point demonstrated. Favor adynamic ileus over small bowel obstruction. Comment: Findings were discussed with Dr. White at the time of dictation. Dictated by: Quinn Dukes M.D. on 05/29/2019 at 18:40 Approved by: Quinn Dukes M.D. on 05/29/2019 at 18:53 ECG Data Attestation: I personally reviewed and interpreted this ECG as follows: Interpretation: SVT with ST depression in i, 2 and avF. Also noted in V3-v6. Heart rate is 175 with a QRS 81 and QTC of 346. Repeat EKG shows HR at 143, QRS is 74 with a QTC of 367. Patient's ST depression does not appear significant. MDM Narrative Medical decision making narrative: Spoke with Dr. Elder who is on for General surgery, she reviewed patient's imaging herself and lab work in suspect patient has a bile leak. She would recommend that patient needs an ERCP and potentially stent for treatment of this as she is status post cholecystectomy and we do not have those capabilities here. I spoke with Dr. Young Cardiology. She is reviewed patient's EKG, she feels patient SVT, likely is now in a sinus rhythm, with 140's. She recommend continuing fluids. We could give a small dose of metoprolol. If was okay with surgery she would recommend heparinization but if surgery did not wish to because they needed to intervene shortly she would feel comfortable holding heparin. She suspects likely demand ischemia secondary to SVT. Spoke with Dr. Luis from [facility]. [facility] imaging and they have discussed with [facility]. Waiting to hear back about if patient is officially accepted at [facility]. Patient HR is improving. She is feeling much better at this time. Patient started on antibiotics and awaiting any further recommendations from GI and cardiology via [facility]. Patient signed out to Dr. Montiel while awaiting confirmation for transfer to [facility]. <Emiliano Montiel, DO - Last Filed: 05/29/19 22:47> Lab Data Labs: Lab Results 05/29/19 05/29/19 05/29/19 Range/Units 17:14 17:14 17:14 WBC 14.0 H (4.5-11.0) X10^3/uL RBC 4.10 (4.0-5.2) X10^6/uL Hgb 13.0 (12.0-16.0) g/dL Hct 38.5 (36-46) % MCV 93.9 (80-100) fL MCH 31.7 (26-34) PG MCHC 33.8 (30-36) % RDW 12.5 (11.6-14.8) % Plt Count 288 (150-400) X10^3/uL Neut % (Auto) 87.2 H (50-75) % Lymph % (Auto) 4.8 L (25-40) % [place] % (Auto) 7.5 (3-14) % Eos % (Auto) 0.2 L (2-4) % Baso % (Auto) 0.3 (0-2) % Neut # (Auto) 19003 H (0404-7499) /uL Lymph # (Auto) 700 L (3229-4781) /uL [place] # (Auto) 1000 H (0-900) /uL Eos # (Auto) 0 (0-450) /uL Baso # (Auto) 0 (0-100) /uL PT 13.6 H (10.1-12.7) SECONDS INR 1.2 (0.9-1.3) APTT 30 (26.4-36.2) SECONDS D-Dimer 4370 H (<230) ng/mL Sodium 130 L (137-145) mmol/L Potassium 4.2 (3.4-5.1) mmol/L Chloride 95 L (98-107) mmol/L Carbon Dioxide 22 (22-32) mmol/L BUN 14 (7-17) mg/dL Creatinine 0.90 (0.52-1.04) mg/dL Estimated GFR > 60.0 (>60) mL/min BUN/Creatinine Ratio 15.6 (6-22) Glucose 314 H (70-100) mg/dL Lactate (0.7-2.1) mmol/L Calcium 10.4 H (8.4-10.2) mg/dL Magnesium 1.8 (1.6-2.3) mg/dL Total Bilirubin 3.9 H (0.2-1.3) mg/dL AST 43 H (14-36) IU/L ALT 45 H (<35) IU/L Alkaline Phosphatase 136 H (38-126) U/L Total Creatine Kinase 32 (30-135) U/L CK-MB (CK-2) TNP CK-MB (CK-2) Rel Index TNP Troponin I 0.179 H* (0.01-0.034) ng/mL Total Protein 7.5 (6.3-8.2) g/dL Albumin 4.0 (3.5-5.0) g/dL Globulin 3.5 (1.7-4.1) g/dL Albumin/Globulin Ratio 1.1 (1.0-2.8) Procalcitonin (<0.5) ng/mL TSH (0.47-4.68) uIU/mL 05/29/19 05/29/19 05/29/19 Range/Units 17:14 17:14 17:14 WBC (4.5-11.0) X10^3/uL RBC (4.0-5.2) X10^6/uL Hgb (12.0-16.0) g/dL Hct (36-46) % MCV (80-100) fL MCH (26-34) PG MCHC (30-36) % RDW (11.6-14.8) % Plt Count (150-400) X10^3/uL Neut % (Auto) (50-75) % Lymph % (Auto) (25-40) % [place] % (Auto) (3-14) % Eos % (Auto) (2-4) % Baso % (Auto) (0-2) % Neut # (Auto) (1443-4705) /uL Lymph # (Auto) (9410-0011) /uL [place] # (Auto) (0-900) /uL Eos # (Auto) (0-450) /uL Baso # (Auto) (0-100) /uL PT (10.1-12.7) SECONDS INR (0.9-1.3) APTT (26.4-36.2) SECONDS D-Dimer Cancelled (<230) ng/mL Sodium (137-145) mmol/L Potassium (3.4-5.1) mmol/L Chloride (98-107) mmol/L Carbon Dioxide (22-32) mmol/L BUN (7-17) mg/dL Creatinine (0.52-1.04) mg/dL Estimated GFR (>60) mL/min BUN/Creatinine Ratio (6-22) Glucose (70-100) mg/dL Lactate (0.7-2.1) mmol/L Calcium (8.4-10.2) mg/dL Magnesium (1.6-2.3) mg/dL Total Bilirubin (0.2-1.3) mg/dL AST (14-36) IU/L ALT (<35) IU/L Alkaline Phosphatase (38-126) U/L Total Creatine Kinase (30-135) U/L CK-MB (CK-2) CK-MB (CK-2) Rel Index Troponin I (0.01-0.034) ng/mL Total Protein (6.3-8.2) g/dL Albumin (3.5-5.0) g/dL Globulin (1.7-4.1) g/dL Albumin/Globulin Ratio (1.0-2.8) Procalcitonin 0.95 H (<0.5) ng/mL TSH 2.23 (0.47-4.68) uIU/mL 05/29/19 05/29/19 Range/Units 17:14 21:03 WBC (4.5-11.0) X10^3/uL RBC (4.0-5.2) X10^6/uL Hgb (12.0-16.0) g/dL Hct (36-46) % MCV (80-100) fL MCH (26-34) PG MCHC (30-36) % RDW (11.6-14.8) % Plt Count (150-400) X10^3/uL Neut % (Auto) (50-75) % Lymph % (Auto) (25-40) % [place] % (Auto) (3-14) % Eos % (Auto) (2-4) % Baso % (Auto) (0-2) % Neut # (Auto) (1063-3863) /uL Lymph # (Auto) (9599-3665) /uL [place] # (Auto) (0-900) /uL Eos # (Auto) (0-450) /uL Baso # (Auto) (0-100) /uL PT (10.1-12.7) SECONDS INR (0.9-1.3) APTT (26.4-36.2) SECONDS D-Dimer (<230) ng/mL Sodium (137-145) mmol/L Potassium (3.4-5.1) mmol/L Chloride (98-107) mmol/L Carbon Dioxide (22-32) mmol/L BUN (7-17) mg/dL Creatinine (0.52-1.04) mg/dL Estimated GFR (>60) mL/min BUN/Creatinine Ratio (6-22) Glucose (70-100) mg/dL Lactate 3.4 H 1.3 (0.7-2.1) mmol/L Calcium (8.4-10.2) mg/dL Magnesium (1.6-2.3) mg/dL Total Bilirubin (0.2-1.3) mg/dL AST (14-36) IU/L ALT (<35) IU/L Alkaline Phosphatase (38-126) U/L Total Creatine Kinase (30-135) U/L CK-MB (CK-2) CK-MB (CK-2) Rel Index Troponin I (0.01-0.034) ng/mL Total Protein (6.3-8.2) g/dL Albumin (3.5-5.0) g/dL Globulin (1.7-4.1) g/dL Albumin/Globulin Ratio (1.0-2.8) Procalcitonin (<0.5) ng/mL TSH (0.47-4.68) uIU/mL MDM Narrative Medical decision making narrative: Dr Montiel: Received turned over from day provider. Reviewed patient's history and physical. Received a call from [place] stating that Dr. Gruber at [facility] would accept the patient. I did not specifically speak with him this was set up through the [email or web address] system. Discussed the transfer with the patient. She expressed understanding and agre ement. Patient is stable for transfer. Discharge Plan Departure Patient Disposition: [facility] Clinical Impression: Bile leak, postoperative, SVT (supraventricular tachycardia), Status post pacheco cystectomy, Non-ST elevation [place] (NSTEMI) Discharge Date/Time: 05/29/19 22:58 Prescriptions: No Action citalopram [Celexa] 40 mg tablet 20 mg PO QPM RF: 0 metformin 1,000 mg tablet 1,000 mg PO BID RF: 0 metformin 1,000 mg Tablet 500 mg PO DAILY RF: 0 Glucose: Test Strips 0 str miscellaneous BID RF: 0 tramadol 50 mg tablet 50 mg PO Q6H PRN (Reason: pain) Qty: 30 RF: 0 acetaminophen [Tylenol] 325 mg capsule 650 mg PO QID PRN (Reason: pain) Qty: 60 RF: 0 Referrals: Taylor Manning ARNP [Primary Care Provider] -
--- NOTE | 2019-05-29 17:15 | PC.NURSE ---
164: Pt arrived via EMS. Per EMS report pt with gallbladder removal saturday by Dr Rae. Has not had BM since surgery. Pale and diaphoretic in field with BP 86/40 HR 170's. 20G IV placed in L hand in field by EMS. About 300mL NS infused by arrival time. HR 103/46 at triage to 2. Pt AAOx3 and appears in good coloring. skin warm and dry. HR 174 on monitoring. Pads applied. Lungs clear, Abd Distended and firm. Abd dressings intact. RT in room for EKG. ETCO2 35 Dr White at bedside. 1650: multiple attempts for 2nd IV placement by multiple RN without success. Current IV patent. MD aware. 1702: Adenosine at bedside. Pt HR decreased to 144 with visible P waves. Adenosine held at this time. 1707: Repeat EKG. IVF continues to infuse. Lab in room for blood draw. T&S drawn and pt banded with blood band. 1720: XR in room. pt tolerated well. BP 129/66 HR 141 ETCO2 33 SPO2 96 RA. covered with warm blankets. requesting to stay flat in bed for comfort.
[2019-05-29 17:23] LABS: Add Manual Diff / Slide Review NO; Basophils Absolute Auto 0 /uL (0-100); Basophils Percent Auto 0.3 % (0-2); Eosinophils Absolute Auto 0 /uL (0-450); Eosinophils Percent Auto 0.2 % (2-4); Hematocrit 38.5 % (36-46); Lymphocytes Absolute Auto 700 /uL (1100-4500); Lymphocytes Percent Auto 4.8 % (25-40); Mean Corpuscular HGB Conc 33.8 % (30-36); Mean Corpuscular Hemoglobin 31.7 PG (26-34); Mean Corpuscular Volume 93.9 fL (80-100); Monocytes Absolute Auto 1000 /uL (0-900); Monocytes Percent Auto 7.5 % (3-14); Neutrophils Absolute Auto 12200 /uL (1500-7000); Neutrophils Percent Auto 87.2 % (50-75); Platelet Count 288 X10^3/uL (150-400); Red Cell Distribution Width 12.5 % (11.6-14.8)
[2019-05-29 17:30] LABS: INR 1.2 (0.9-1.3); Prothrombin Time 13.6 SECONDS (10.1-12.7)
[2019-05-29 17:32] LABS: PTT Partial Thromboplastin Tim 30 SECONDS (26.4-36.2)
[2019-05-29 17:34] LABS: Alanine Aminotransferase 45 IU/L (<35); Albumin Globulin Ratio 1.1 (1.0-2.8); Alkaline Phosphatase 136 U/L (38-126); Aspartate Aminotransferase 43 IU/L (14-36); BUN Creatinine Ratio 15.6 (6-22); Bilirubin Total 3.9 mg/dL (0.2-1.3); Blood Urea Nitrogen 14 mg/dL (7-17); Calcium 10.4 mg/dL (8.4-10.2); Carbon Dioxide 22 mmol/L (22-32); Chloride 95 mmol/L (98-107); Creatine Kinase 32 U/L (30-135); Estimated Glomerular Filt Rate > 60.0 mL/min (>60); Globulin 3.5 g/dL (1.7-4.1); Glucose 314 mg/dL (70-100); HEMOLYSIS < 15 (0-50); Magnesium 1.8 mg/dL (1.6-2.3); Potassium 4.2 mmol/L (3.4-5.1); Sodium 130 mmol/L (137-145); Total Protein 7.5 g/dL (6.3-8.2)
[2019-05-29 17:39] LABS: D Dimer 4370 ng/mL (<230)
--- NOTE | 2019-05-29 17:42 | DI.CT.S_ITS ---
PROCEDURE: CT ABDOMEN PELVIS W CON INDICATIONS: concern for PE, recent cholecystectomy. TECHNIQUE: After the administration of intravenous contrast, 5 mm thick sections acquired from the diaphragm to the symphysis. 5 mm coronal and sagittal reformats were acquired. For radiation dose reduction, the following was used: automated exposure control, adjustment of mA and/or kV according to patient size. COMPARISON: Same day CT pulmonary angiogram. Abdominal ultrasound 04/27/2019. FINDINGS: Image quality: Excellent. ABDOMEN: Lung bases: A platelike consolidative opacity of the lung bases. A few other areas of ground glass opacity. Heart size is normal. Solid organs: Liver is normal in size and enhancement. No focal lesion. Gallbladder is surgically absent. There is a small volume of fluid in the gallbladder fossa. This tracks inferiorly into the right pericolic gutter. Questionable layering of this fluid which may be artifactual due to beam hardening artifact. There is also a moderate amount of free fluid in the pelvis. Biliary system is non dilated. Pancreas enhances normally. Spleen is normal in size and enhancement. Trace free fluid adjacent to the spleen. No adrenal nodules. Kidneys demonstrate normal size and enhancement, without hydronephrosis. Scarring at the inferior pole of the right kidney. No solid renal mass. Peritoneum and bowel: Prominent loops of small bowel in the midabdomen with a gradual transition to a normal caliber. Small amount of fecal residue in the colon. A few scattered colonic diverticula. The appendix is not identified. No free fluid or air. Nodes and vessels: No retroperitoneal or mesenteric adenopathy by size criteria. Aorta and inferior vena cava are normal in size. Miscellaneous: Tiny periumbilical hernia. PELVIS: Genitourinary: Bladder wall thickness is normal. Miscellaneous: No inguinal hernias or adenopathy. Bones: No suspicious bony lesions. Minimal sclerosis at the left SI joint. No vertebral body compression fractures. IMPRESSION: 1. Moderate amount of free fluid in the abdomen post recent cholecystectomy. This may be serous, hemorrhagic, or less likely due to bile leak due to the quantity. 2. No biliary ductal dilatation seen. 3. Prominent small bowel loops in the midabdomen. No discrete transition point demonstrated. Favor adynamic ileus over small bowel obstruction. Comment: Findings were discussed with Dr. White at the time of dictation. Dictated by: Quinn Dukes M.D. on 05/29/2019 at 18:40 Approved by: Quinn Dukes M.D. on 05/29/2019 at 18:53
--- NOTE | 2019-05-29 17:42 | DI.CT.S_ITS ---
PROCEDURE: CT ANGIO CHEST PE PROTOCOL INDICATIONS: concern for PE, tachycardia, recent surgery TECHNIQUE: After the administration of intravenous contrast, 2 mm thick sections acquired from the pulmonary apices to the posterior costophrenic angles. 3-dimensional maximum intensity projection (MIP) coronal and sagittal reformats were then acquired through the thorax. For radiation dose reduction, the following was used: automated exposure control, adjustment of mA and/or kV according to patient size. COMPARISON: None. FINDINGS: Image quality: Good. Diagnostic to the level of the segmental pulmonary arteries. Pulmonary artery opacification is slightly delayed with denser contrast in the aorta. Pulmonary arteries: Pulmonary arteries are normal in size, and demonstrate no intraluminal filling defects to suggest central pulmonary embolism. Lungs and pleura: Mild consolidative opacities at the lung bases. Minimal ground glass opacity in the right middle and upper lobes. No pleural effusions or pneumothorax. Central and peripheral airways are patent. Mediastinum: Heart size is normal, without pericardial effusion. No mediastinal or hilar adenopathy. Thoracic aorta is normal in caliber and enhancement. Esophagus is normal in caliber, without significant hiatal hernia. Bones and chest wall: No suspicious bony lesions. Moderate degenerative change in the mid thoracic spine. Ribs and thoracic spine appear intact throughout. Thyroid gland is unremarkable. No axillary or supraclavicular adenopathy. Abdomen: Please see separately dictated CT abdomen and pelvis subsequently performed. IMPRESSION: 1. No pulmonary embolism. 2. Mild consolidative opacities at the lung bases. Few areas of minimal chronic glass opacity. This may be due to atelectasis rather than pneumonia given its platelike appearance. 3. No acute aortic syndrome. Comment: Findings were discussed with Dr. White at the time of dictation. Dictated by: Quinn Dukes M.D. on 05/29/2019 at 18:32 Approved by: Quinn Dukes M.D. on 05/29/2019 at 18:40
[2019-05-29 17:46] LABS: Troponin I 0.179 ng/mL (0.01-0.034)
[2019-05-29] MEDS: SODIUM CHLORIDE 0.9% 1,000 ML 200 ML IV (17:55)
--- NOTE | 2019-05-29 17:57 | PC.NURSE ---
1757: No change in assessment. pt lying flat in position of comfort. HR remains 139, ETCO2 39. reports discomfort in abd is the same, IVF bolus completed and NS infusing at 200mL/hr as ordered. awaiting further orders. at side.
[2019-05-29 18:18] LABS: Thyroid Stimulating Hormone 2.23 uIU/mL (0.47-4.68)
--- NOTE | 2019-05-29 18:27 | PC.NURSE ---
3314-3440: Pt taken with RN to CT. tolerated well. back to room 1827. BP 147/70 HR 132. reports some discomfort and asked for pain medication. MD aware. Verbal order for Morphine 2mg IV. Pt given ASA 324 as ordered. elevated HOB.
[2019-05-29] MEDS: ASPIRIN 81 MG CHEW TAB 324 MG PO (18:32)
[2019-05-29] MEDS: MORPHINE 2 MG/ML INJ IV ×3 (18:40→22:49)
[2019-05-29 19:04] LABS: Lactate (Lactic Acid) 3.4 mmol/L (0.7-2.1)
[2019-05-29 19:20] LABS: Procalcitonin 0.95 ng/mL (<0.5)
--- NOTE | 2019-05-29 19:33 | PC.NURSE ---
Transfer of care to GLEN Lugo. report given.
[2019-05-29] MEDS: METOPROLOL TARTRATE 5 MG/5 ML INJ IV (19:45)
[2019-05-29] MEDS: metroNIDAZOLE 500 MG/100 ML PIGGYBACK 100 MG IV (20:00)
[2019-05-29 20:46] LABS: Reflexed Lactate in 2 Hours Y
[2019-05-29] MEDS: SODIUM CHLORIDE 0.9% 1,000 ML 150 ML IV (21:16)
[2019-05-29] MEDS: levoFLOXacin 750 MG/150 ML PIGGYBACK 100 MG IV (21:16)
[2019-05-29 21:20] LABS: Lactate 2HR (Lactic Acid Rflx) 1.3 mmol/L (0.7-2.1)
== END 2019-05-29 22:58 | disposition short-term general hospital (02) ==
PROVIDERS: Emergency Medicine; Emergency Provider Emergency Medicine; Family Provider Internal Medicine; PCP Internal Medicine
DX: K91.89 Other postprocedural complications and disorders of digestive system (principal); I97.191 Other postprocedural cardiac functional disturbances following other surgery; I47.1 Supraventricular tachycardia; I21.4 Non-ST elevation (NSTEMI) myocardial infarction; R79.89 Other specified abnormal findings of blood chemistry
CPT/HCPCS: 36415; 71045; 71275; 74018; 74177; 80053; 82550; 83605; 83735; 84145; 84443; 84484; 85025; 85379; 85610; 85730; 87040; 93005; 93010; 93041; 96361; 96365; 96366; 96367; 96375; 96376; 99285; J1956; J2270; Q9967

== ENCOUNTER → 2019-09-11 09:55 | Outpatient (CLI) | payer OTHER, SELFPAY ==
--- NOTE | 2019-09-11 10:03 | DI.RAD.S_ITS ---
PROCEDURE: XR HAND RT MIN 3V INDICATIONS: Pain in rt hand/wrist TECHNIQUE: 3 views of the hand(s) acquired. COMPARISON: [facility], CR, XR WRIST RT MIN 3V, 09/11/2019, 10:09. FINDINGS: Bones: No fractures or dislocations. Carpal bones are normally aligned. No suspicious bony lesions. There is [id number] degenerative joint disease in multiple interphalangeal joints. There is subtle marginal bony erosion. Soft tissues: No suspicious soft tissue calcifications. IMPRESSION: 1. 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 Subtle marginal bony erosion is present. Recommend clinical correlation for the possibility of inflammatory arthritis such as erosive OA. Dictated by: Carlton Rivas M.D. on 09/11/2019 at 17:54 Approved by: Carlton Rivas M.D. on 09/11/2019 at 17:56
--- NOTE | 2019-09-11 10:03 | DI.RAD.S_ITS ---
PROCEDURE: XR WRIST RT MIN 3V INDICATIONS: Pain in right hand/wrist TECHNIQUE: 3 views of the wrist were acquired. COMPARISON: [facility], , XR HAND RT MIN 3V, 09/11/2019, 10:09. FINDINGS: Bones: No fractures or dislocations. No suspicious bony lesions. Mild radiocarpal and triscaphe joint degeneration. No bony erosions. Soft tissues: No suspicious soft tissue calcifications. IMPRESSION: Mild degenerative joint disease. Dictated by: Carlton Rivas M.D. on 09/11/2019 at 13:20 Approved by: Carlton Rivas M.D. on 09/11/2019 at 13:22
--- NOTE | 2019-09-11 10:04 | DI.RAD.S_ITS ---
PROCEDURE: XR KNEE RT 3V INDICATIONS: Pain in rt knee TECHNIQUE: 3 views of the knee were acquired. COMPARISON: [facility], MR, KNEE WITHOUT CONTRAST, 12/12/2015, 9:17. [facility], CR, KNEE 3V RIGHT, 09/06/2015, 10:22. FINDINGS: Bones: No fractures or dislocations. No suspicious bony lesions. There is mild degenerative joint disease involving the medial femorotibial compartment and patellofemoral compartment. Soft tissues: There is joint effusion. No suspicious soft tissue calcifications. IMPRESSION: Mild degenerative joint disease and trace knee joint effusion. Dictated by: Carlton Rivas M.D. on 09/11/2019 at 13:23 Approved by: Carlton Rivas M.D. on 09/11/2019 at 13:28
--- NOTE | 2019-09-11 10:14 | DI.RAD.S_ITS ---
PROCEDURE: XR WRIST LT MIN 3V INDICATIONS: PAIN TECHNIQUE: 3 views of the wrist were acquired. COMPARISON: [facility], CR, XR HAND LT MIN 3V, 09/11/2019, 10:09. FINDINGS: Bones: No fractures or dislocations. No suspicious bony lesions. Mild radiocarpal, triscaphe and first metacarpal joint degeneration. No bony erosions. Soft tissues: No suspicious soft tissue calcifications. IMPRESSION: Mild degenerative joint disease. Dictated by: Carlton Rivas M.D. on 09/11/2019 at 13:22 Approved by: Carlton Rivas M.D. on 09/11/2019 at 13:23
--- NOTE | 2019-09-11 10:14 | DI.RAD.S_ITS ---
PROCEDURE: XR HAND LT MIN 3V INDICATIONS: PAIN TECHNIQUE: 3 views of the hand(s) acquired. COMPARISON: [facility], CR, XR WRIST LT MIN 3V, 09/11/2019, 10:09. FINDINGS: Bones: No fractures or dislocations. Carpal bones are normally aligned. No suspicious bony lesions. There is mild degenerative joint disease in multiple interphalangeal joints. No definitive bony erosion. Soft tissues: No suspicious soft tissue calcifications. IMPRESSION: Mild osteoarthritic changes. Dictated by: Carlton Rivas M.D. on 09/11/2019 at 17:56 Approved by: Carlton Rivas M.D. on 09/11/2019 at 17:57
== END ==
PROVIDERS: Family Provider Internal Medicine; PCP Internal Medicine; Referring Provider Internal Medicine; Visit Provider Internal Medicine
DX: M19.041 Primary osteoarthritis, right hand (principal); M19.042 Primary osteoarthritis, left hand; M79.641 Pain in right hand; M79.642 Pain in left hand; M17.11 Unilateral primary osteoarthritis, right knee; M25.561 Pain in right knee; M19.032 Primary osteoarthritis, left wrist; M19.031 Primary osteoarthritis, right wrist; M25.531 Pain in right wrist; M25.532 Pain in left wrist; E11.3593 Type 2 diabetes mellitus with proliferative diabetic retinopathy without macular edema, bilateral; R19.31 Right upper quadrant abdominal rigidity
CPT/HCPCS: 73110; 73130; 73562; 80053; 80061; 81001; 82043; 82150; 82570; 83036; 83690; 85025; 85651; 86140; 86200; 86430

== ENCOUNTER → 2020-03-02 08:45 | Outpatient (CLI) | payer OTHER, SELFPAY ==
[2020-03-02 09:24] LABS: Add Manual Diff / Slide Review NO; Basophils Absolute Auto 100 /uL (0-100); Basophils Percent Auto 1.2 % (0-2); Eosinophils Absolute Auto 200 /uL (0-450); Eosinophils Percent Auto 3.4 % (2-4); Hematocrit 38.2 % (36-46); Hemoglobin 12.8 g/dL (12.0-16.0); Lymphocytes Absolute Auto 2500 /uL (1100-4500); Lymphocytes Percent Auto 42.8 % (25-40); Mean Corpuscular HGB Conc 33.5 % (30-36); Mean Corpuscular Hemoglobin 31.1 PG (26-34); Mean Corpuscular Volume 92.8 fL (80-100); Monocytes Absolute Auto 500 /uL (0-900); Monocytes Percent Auto 9.3 % (3-14); Neutrophils Absolute Auto 2500 /uL (1500-7000); Neutrophils Percent Auto 43.3 % (50-75); Platelet Count 231 X10^3/uL (150-400); Red Blood Cell Count 4.11 X10^6/uL (4.0-5.2); Red Cell Distribution Width 12.4 % (11.6-14.8); White Blood Cell Count 5.8 X10^3/uL (4.5-11.0)
[2020-03-02 09:29] LABS: Hemoglobin A1C% w Est Avg Glu 6.9 % (4.0-6.0)
[2020-03-02 09:35] LABS: Alanine Aminotransferase 30 IU/L (<35); Albumin 4.3 g/dL (3.5-5.0); Albumin Globulin Ratio 1.5 (1.0-2.8); Alkaline Phosphatase 104 U/L (38-126); Aspartate Aminotransferase 34 IU/L (14-36); BUN Creatinine Ratio 20.2 (6-22); Bilirubin Total 0.4 mg/dL (0.2-1.3); Blood Urea Nitrogen 18 mg/dL (7-17); Calcium 10.2 mg/dL (8.4-10.2); Carbon Dioxide 25 mmol/L (22-32); Chloride 103 mmol/L (98-107); Cholesterol 250 mg/dL (140-199); Estimated Glomerular Filt Rate > 60.0 mL/min (>60); Globulin 2.8 g/dL (1.7-4.1); Glucose 136 mg/dL (70-100); HDL Cholesterol 50 mg/dL (40-60); HEMOLYSIS < 15 (0-50); LDL Cholesterol Calculated 161 mg/dL (<100); Magnesium 1.6 mg/dL (1.6-2.3); Sodium 136 mmol/L (137-145); Total Protein 7.1 g/dL (6.3-8.2); Triglycerides 193 mg/dL (35-150)
[2020-03-02 10:06] LABS: TSH w/ Reflex to FT4 4.52 uIU/mL (0.47-4.68)
[2020-03-03 07:09] LABS: Parathyroid Hormone Int 37 pg/mL (15-65)
== END ==
PROVIDERS: Family Provider Internal Medicine; PCP Internal Medicine; Referring Provider Physician Assistant; Visit Provider Internal Medicine
DX: I20.8 Other forms of angina pectoris (principal); R00.2 Palpitations; E78.2 Mixed hyperlipidemia; R06.02 Shortness of breath; E11.9 Type 2 diabetes mellitus without complications; E83.52 Hypercalcemia
CPT/HCPCS: 36415; 80053; 80061; 83036; 83735; 83970; 84443; 85025

== ENCOUNTER → 2020-03-24 11:54 | Outpatient (CLI) | payer OTHER, SELFPAY ==
--- NOTE | 2020-03-24 11:56 | DI.MRI.S_ITS ---
PROCEDURE: MR HAND RT WO/W CON INDICATIONS: BILATERAL HAND PAIN TECHNIQUE: Coronal and axial T1 spin echo and T2 fast spin echo with fat saturation. Post-contrast coronal and axial T1 spin echo with fat saturation images through the right hand and wrist. COMPARISON: [facility], CR, XR HAND RT MIN 3V, 09/11/2019, 10:09. FINDINGS: Image quality: Suboptimal due to motion artifact. Bones and cartilage: Focal marrow signal changes are present within the 3rd and 4th metacarpal heads, with T1 hypointense appearance and T2 hyperintensity. There is overlying cortical destruction, in particular at the 4th metacarpal head.There is also similar signal change present at the triquetral. However, there is only minimal enhancement seen on the postcontrast enhanced pulse sequences although these images are motion degraded. 4 mm erosion meeting OMERACT criteria seen at the PIP joint of the index finger. Synovium: There is suggestion of active synovitis involving the 3rd MCP joint although this could be related to adjacent flexor tenosynovitis. Elsewhere, no active enhancing synovitis although limited evaluation given severely motion degraded images. Soft tissues: Mild middle finger flexor tenosynovitis, and probable adjacent ganglion cyst measuring 5 mm seen on image 32/5. IMPRESSION: Motion degraded examination. Middle finger flexor tenosynovitis. Possible mild synovitis at the 3rd MCP joint however limited evaluation given severe motion artifact on the postcontrast enhanced pulse sequences. Small erosion seen at the PIP joint of the index finger. Additional focal marrow signal changes suggestive of erosions involving the 3rd and 4th metacarpal heads as well as the triquetral however there is less than expected enhancement on the postcontrast enhanced pulse sequences, which may be related to severe motion artifact (versus chronic age). Dictated by: Arpit Naik M.D. on 03/24/2020 at 13:49 Approved by: Arpit Naik M.D. on 03/24/2020 at 14:29
--- NOTE | 2020-03-24 11:56 | DI.MRI.S_ITS ---
PROCEDURE: MR HAND LT WO/W CON INDICATIONS: BILATERAL HAND PAIN TECHNIQUE: Coronal and axial T1 spin echo and T2 fast spin echo with fat saturation. Post-contrast coronal and axial T1 spin echo with fat saturation images through the left hand and wrist. COMPARISON: None. FINDINGS: Image quality: Motion degraded examination. Bones and cartilage: 3 mm marginal erosion at the index finger DIP joint with T2 hyperintensity, enhancement and overlying cortical disruption. Technically this meets OMERACT criteria. Marrow signal change present within the 3rd metacarpal head with somewhat curvilinear appearance for example image 10/7, although less than expected enhancement. Nonetheless this is suspicious for erosion, and demonstrates overlying cortical loss Focal marrow signal changes present within the capitate scaphoid and triquetral are present however technically indeterminate and not well visualized due to positioned at the margin of the exam [id number], and motion artifact. No osteitis identified. Synovium: Possible low-grade 3rd MCP synovitis. Elsewhere, no definite synovitis however limited evaluation given motion artifact on the postcontrast enhanced pulse sequence. Soft tissues: Middle finger flexor tenosynovitis. IMPRESSION: Erosion involving the index finger DIP joint. Additional marrow signal changes present in the 3rd metacarpal head, capitate, scaphoid and triquetral which are suspicious for erosions Elsewhere, no definite synovitis however limited evaluation given motion artifact on the postcontrast enhanced pulse sequences. Middle finger flexor tenosynovitis Borderline/low-grade 3rd MCP synovitis. Dictated by: Arpit Naik M.D. on 03/24/2020 at 14:30 Approved by: Arpit Naik M.D. on 03/24/2020 at 14:41
== END ==
PROVIDERS: Family Provider Internal Medicine; PCP Internal Medicine; Referring Provider Internal Medicine Rheumatology; Visit Provider Internal Medicine Rheumatology
DX: M79.642 Pain in left hand (principal); M79.641 Pain in right hand; M65.842 Other synovitis and tenosynovitis, left hand; M65.841 Other synovitis and tenosynovitis, right hand
CPT/HCPCS: 73220; A9579

== ENCOUNTER → 2020-03-29 13:39 | Outpatient (CLI) | payer OTHER, SELFPAY ==
--- NOTE | 2020-03-29 14:05 | DI.ECHO.S_ITS ---
Echocardiogram Report + + :Name: SOHAIL GAYLE Study Date: 03/29/2020 Height: 67 in : :[facility] Weight: 200 lb : : Gender: Female BSA: 2.0 m2 : :: 1960 Age: 59 yrs BP: 143/80 mmHg: :Reason For Study: ANGINA : :Ordering Physician: MCKINLEY, : :DEVAUGHN Joiner Performed By: Sana Downs : :Referring: DEVAUGHN SEN : + + Interpretation Summary The left ventricle is normal in size and wall thickness. There are no focal wall motion abnormalities. The right ventricle is normal in size and function. Pulmonary artery pressures cannot be estimated because of the lack of a measurable TR jet velocity but the IVC suggests a CVP of around 3 mmHg. No hemodynamically significant valvular abnormalities. No significant change compared to the prior echocardiogram. Procedure: Comparison is made with the echocardiogram of 11/28/2018. A twodimensional transthoracic echocardiogram with color flow and Doppler was performed. The study quality was technically adequate. The patient was in normal sinus rhythm during the exam. Left Ventricle: The left ventricle is normal in size and wall thickness. The ejection fraction is estimated to be 60-65%. The left ventricular ejection fraction is normal. There are no focal wall motion abnormalities. Diastolic parameters suggest probable normal left ventricular diastolic function and normal filling pressures. Right Ventricle: The right ventricle is normal in size and function. Atria: The left atrial size is normal. Right atrial size is normal. There is no Doppler evidence for an interatrial shunt. Mitral Valve: The mitral valve is normal in structure and function. There is mild mitral regurgitation. Aortic Valve: The aortic valve is trileaflet. The aortic valve opens well. There is no aortic valve stenosis. No aortic regurgitation is present. Tricuspid Valve: The tricuspid valve is normal in structure and function. Pulmonary artery pressures cannot be estimated because of the lack of a measurable TR jet velocity but the IVC suggests a CVP of around 3 mmHg. There is trace tricuspid regurgitation. Pulmonic Valve: The pulmonic valve leaflets are thin and pliable; valve motion is normal. There is trace pulmonic regurgitation. Great Vessels: The aortic root is normal size. The dimensions of the ascending aorta are normal. The IVC is of normal diameter and collapses greater than 50% with a sniff. This suggests a low right atrial pressure of 3 mm Hg. Pericardium/ Pleura There is no pericardial effusion. There is no pleural effusion. MMode/2D Measurements & Calculations LVIDd: 4.5 cm LVOT diam: 1.9 cm LVIDs: 3.1 cm Ao root diam: 2.8 cm FS: 30.5 % asc Aorta Diam: 3.0 cm EPSS: 0.68 cm Ao Arch Diam (Prox Trans): 2.7 cm IVSd: 0.75 cm LVPWd: 0.71 cm LV atkinson. diameter/BSA (cm/m^2): 2.2 LV sys. diameter/BSA (cm/m^2): 1.5 LA A2 area: 17.2 cm2 RA long axis: 4.6 cm LA A4 area: 16.6 cm2 RA area: 12.0 cm2 LA length (vol): 4.6 cm RA vol: 27.0 ml LA vol: 52.4 ml RA : 13.4 ml/m2 LA vol index: 25.9 ml/m2 IVC diam: 1.8 cm RVD1 (basal): 3.0 cm TAPSE: 2.2 cm Doppler Measurements & Calculations Ao V2 max: 164.1 cm/sec LVOT Max Tho: 104.2 cm/sec Ao V2 mean: 117.0 cm/sec LV V1 max P.3 mmHg Ao max P.8 mmHg LV V1 VTI: 25.2 cm Ao mean P.1 mmHg LOS(I,D): 2.0 cm2 Ao V2 VTI: 37.8 cm LOS(V,D): 1.9 cm2 sev ratio: 0.67 LOS indexed to BSA (cm^2/m^2): 0.98 MV E max tho: 93.7 cm/sec PA V2 max: 95.3 cm/sec MV A max tho: 86.1 cm/sec PA V2 mean: 60.1 cm/sec MV E/A: 1.1 PA mean P.7 mmHg Med Peak E' Tho: 7.5 cm/sec PA pr(Accel): 0.22 mmHg E/E' med: 12.5 Lat Peak E' Tho: 8.9 cm/sec E/E' lat: 10.6 E/e' average: 11.5 MV dec time: 0.19 sec SV(LVOT): 74.7 ml Electronically signed by: Rayray Young M.D. on Reading Physician:03/29/2020 10:18 PM
== END ==
PROVIDERS: Family Provider Internal Medicine; PCP Internal Medicine; Referring Provider Internal Medicine; Visit Provider Physician Assistant
DX: I34.0 Nonrheumatic mitral (valve) insufficiency (principal); I20.8 Other forms of angina pectoris; R00.2 Palpitations; R06.02 Shortness of breath
CPT/HCPCS: 93306

== ENCOUNTER → 2020-04-25 12:06 | Outpatient (CLI) | payer OTHER, SELFPAY ==
[2020-04-25 12:54] LABS: Add Manual Diff / Slide Review NO; Basophils Absolute Auto 100 /uL (0-100); Basophils Percent Auto 1.1 % (0-2); Eosinophils Absolute Auto 100 /uL (0-450); Eosinophils Percent Auto 1.4 % (2-4); Hematocrit 39.1 % (36-46); Hemoglobin 13.4 g/dL (12.0-16.0); Lymphocytes Absolute Auto 1900 /uL (1100-4500); Lymphocytes Percent Auto 39.1 % (25-40); Mean Corpuscular HGB Conc 34.2 % (30-36); Mean Corpuscular Hemoglobin 31.7 PG (26-34); Mean Corpuscular Volume 92.7 fL (80-100); Monocytes Absolute Auto 400 /uL (0-900); Monocytes Percent Auto 8.5 % (3-14); Neutrophils Absolute Auto 2400 /uL (1500-7000); Neutrophils Percent Auto 49.9 % (50-75); Platelet Count 240 X10^3/uL (150-400); Red Blood Cell Count 4.22 X10^6/uL (4.0-5.2); Red Cell Distribution Width 12.8 % (11.6-14.8); White Blood Cell Count 4.9 X10^3/uL (4.5-11.0)
[2020-04-25 13:42] LABS: Alanine Aminotransferase 30 IU/L (<35); Albumin 4.5 g/dL (3.5-5.0); Albumin Globulin Ratio 1.3 (1.0-2.8); Alkaline Phosphatase 113 U/L (38-126); Aspartate Aminotransferase 35 IU/L (14-36); BUN Creatinine Ratio 18.7 (6-22); Bilirubin Total 0.4 mg/dL (0.2-1.3); Blood Urea Nitrogen 14 mg/dL (7-17); Calcium 10.1 mg/dL (8.4-10.2); Carbon Dioxide 30 mmol/L (22-32); Chloride 101 mmol/L (98-107); Estimated Glomerular Filt Rate > 60.0 mL/min (>60); Globulin 3.4 g/dL (1.7-4.1); Glucose 112 mg/dL (70-100); HEMOLYSIS < 15 (0-50); Potassium 4.1 mmol/L (3.4-5.1); Sodium 138 mmol/L (137-145); Total Protein 7.9 g/dL (6.3-8.2)
== END ==
PROVIDERS: Family Provider Internal Medicine; PCP Internal Medicine; Referring Provider Internal Medicine Rheumatology; Visit Provider Internal Medicine Rheumatology
DX: M19.90 Unspecified osteoarthritis, unspecified site (principal); D89.9 Disorder involving the immune mechanism, unspecified
CPT/HCPCS: 36415; 80053; 85025

== ENCOUNTER → 2020-06-30 11:56 | Outpatient (CLI) | payer OTHER, SELFPAY ==
--- NOTE | 2020-06-30 | DI.MRI.S_ITS ---
PROCEDURE: MR LUMBAR SPINE WO CON INDICATIONS: Radiculopathy, lumbar region TECHNIQUE: Noncontrast sagittal T1 spin echo and T2 fast echo, sagittal STIR, axial T1 and T2 fast spin echo through the lumbar spine. In cases with scoliosis, additional coronal T2 fast spin echo may be performed. COMPARISON: [facility], MR, L-SPINE WITHOUT CONTRAST, 05/22/2017, 9:11. FINDINGS: Image quality: Excellent. Alignment and Curvature: Trace anterolisthesis of L4 on L5 Bone Marrow: No fracture. Multilevel degenerative endplate sclerosis and spurring. Diffuse facet arthropathy. Spinal Cord: Conus medullaris terminates at the L2 level. Visualized cord demonstrates normal signal and size. Paraspinous Soft Tissues: No paravertebral masses. There is nonspecific, dependent posterior subcutaneous soft tissue edema from level of T12-L5 L1-L2: Normal appearance. L2-L3: No canal stenosis. Lateral recesses appear grossly patent. Mild left foraminal narrowing. No right foraminal stenosis. L3-L4: Mild dorsal epidural lipomatosis. Partial effacement of both lateral recesses with bilaterally symmetric appearance. Mild to moderate right foraminal stenosis with slight nerve root compression. This appears progressed since the prior study. Moderate to severe left foraminal stenosis with nerve root compression. No interval change L4-L5: Posterior annular fissure. Mild canal narrowing. Partial effacement of both lateral recesses with bilaterally symmetric appearance. Moderate left foraminal stenosis and severe right foraminal stenosis. Nerve root compression on both sides. L5-S1: No canal stenosis. Lateral recesses appear grossly patent. Mild bilateral foraminal narrowing. IMPRESSION: Multilevel spondylosis and facet arthropathy. Bilateral foraminal stenoses at L4-L5, with slight progression on the left, and grossly unchanged on the right. Slight interval progression in right L3-L4 foraminal narrowing. Dictated by: Arpit Naik M.D. on 06/30/2020 at 13:09 Approved by: Arpit Naik M.D. on 06/30/2020 at 13:18
--- NOTE | 2020-06-30 | DI.RAD.S_ITS ---
PROCEDURE: XR HIP W PEL IF DONE RT 2V INDICATIONS: right hip pain TECHNIQUE: AP pelvis with lateral view(s) of the right hip(s). COMPARISON: None. FINDINGS: Bones: No fractures or dislocations. Pelvic ring appears intact. No suspicious bony lesions. Soft tissues: The visualized bowel gas pattern is normal. No suspicious soft tissue calcifications. IMPRESSION: Source of right-sided hip pain is not seen. Dictated by: Kemal Sosa M.D. on 06/30/2020 at 12:56 Approved by: Kemal Sosa M.D. on 06/30/2020 at 12:57
== END ==
PROVIDERS: Family Provider Internal Medicine; PCP Internal Medicine; Referring Provider Internal Medicine; Visit Provider Internal Medicine
DX: M47.26 Other spondylosis with radiculopathy, lumbar region (principal); M48.061 Spinal stenosis, lumbar region without neurogenic claudication; M25.551 Pain in right hip; R10.30 Lower abdominal pain, unspecified
CPT/HCPCS: 72148; 73502

== ENCOUNTER → 2022-04-05 13:57 | Outpatient (CLI) | payer OTHER, SELFPAY ==
--- NOTE | 2022-04-05 | DI.RAD.S_ITS ---
PROCEDURE: XR THORACIC SPINE 3V INDICATIONS: thoracic spine pain, chronic pain TECHNIQUE: 3 views of the thoracic spine were acquired. COMPARISON: None. FINDINGS: Bones: No fractures or dislocations. No suspicious bony lesions. 12 pairs of ribs are noted, and appear intact where visualized. Moderate multilevel disc height loss and endplate spurring. Soft tissues: No paravertebral stripe thickening. Abdominal right upper quadrant metal clips could be from prior cholecystectomy. IMPRESSION: Moderate multilevel degenerative changes of the thoracic spine. Dictated by: Suhsa Melchor M.D. on 04/05/2022 at 21:58 Approved by: Suhas Melchor M.D. on 04/05/2022 at 21:59
== END ==
PROVIDERS: Family Provider Internal Medicine; PCP Internal Medicine; Referring Provider Internal Medicine; Visit Provider Internal Medicine
DX: M54.6 Pain in thoracic spine (principal); G89.29 Other chronic pain
CPT/HCPCS: 72072

== ENCOUNTER 2022-04-16 13:53 | Emergency (ER) | payer OTHER, SELFPAY ==
[2022-04-16 13:57] VITALS: BP 126/73; PULSE 61; RESP 20; TEMP 36.9; O2SAT 97
[2022-04-16 15:10] VITALS: BP 112/62; PULSE 66; RESP 16; O2SAT 97
--- NOTE | 2022-04-16 15:15 | DI.US.S_ITS ---
PROCEDURE: US PERIPH VENOUS LOW EXTREM RT INDICATIONS: PAIN AND SWELLING TECHNIQUE: Real-time imaging, as well as color and pulse Doppler interrogation, were performed of the lower extremity deep veins from the inguinal ligament to the popliteal fossa. COMPARISON: None. FINDINGS: The common femoral, femoral and popliteal veins are normally compressible, and free of intraluminal thrombus. Color and pulse Doppler demonstrate normal phasic intraluminal flow. There is normal augmentation response to distal compression maneuver. IMPRESSION: Negative for deep venous thrombosis. Dictated by: Brian Tirado M.D. on 04/16/2022 at 15:03 Approved by: Brian Tirado M.D. on 04/16/2022 at 15:03
--- NOTE | 2022-04-16 15:35 | ED.BACK ---
HPI - Back Pain/Injury <Jamel Wilde PA-C - Last Filed: 04/16/22 16:51> General Chief Complaint: Back Pain/Injury Stated Complaint: rt lower back pain making walking hard Time Seen by Provider: 04/16/22 14:12 Source: patient History of Present Illness HPI Narrative: This is a 61-year-old female presenting to the emergency department due to right lower back and right lower extremity pain for last couple days. Patient states that she was on a long car trip from [place] with a lot of sitting as well as a with a lot of sitting as well. She states that her right back, buttock, and right lower extremity have had pain ever since. She also states she has noticed some unilateral swelling of the right foot as well as right thigh. Denies any numbness, trauma to the right lower extremity, chest pain, shortness of breath, or any other concerning signs or symptoms. Related Data Home Medications Medication Instructions Recorded Confirmed Glucose: Test Strips 0 str miscellaneous BID 04/14/19 06/29/19 citalopram 40 mg tablet (Celexa) 20 mg PO QPM 04/14/19 06/29/19 metformin 1,000 mg tablet 1,000 mg PO BID 04/14/19 06/29/19 metformin 1,000 mg tablet 500 mg PO DAILY 04/14/19 06/29/19 Previous Rx's Medication Instructions Recorded acetaminophen 325 mg capsule 650 mg PO QID PRN pain #60 caps 05/26/19 (Tylenol) tramadol 50 mg tablet 50 mg PO Q6H PRN pain #30 tabs 05/26/19 cyclobenzaprine 10 mg tablet 10 mg PO BEDTIME PRN muscle spasm 04/16/22 #14 tabs Allergies Allergy/AdvReac Type Severity Reaction Status Date / Time Penicillins Allergy Mild RASH Verified 06/29/19 15:07 Review of Systems <Jamel Wilde PA-C - Last Filed: 04/16/22 16:51> Review of Systems Narrative: GENERAL: Denies chills, fatigue, malaise, fever, sweats. HEENT: Denies sinus pain, ear pain, sore throat, difficulty swallowing, dizziness. RESPIRATORY: Denies dyspnea, cough, wheezing, hemoptysis, sputum. CARDIOVASCULAR: Denies chest pain, palpitations, orthopnea, edema, GASTROINTESTINAL: Denies nausea, vomiting, abdominal pain, diarrhea, constipation, melena. : Denies dysuria, frequency, incontinence, hematuria, urinary retention. MUSCULOSKELETAL: Right lower extremity pain SKIN: Denies rash, skin lesions, or other NEUROLOGIC: Denies weakness, headache, numbness, change in speech, confusion, seizures, incoordination. PSYCHIATRIC: No concerning psychosocial issues. Back: Right lower back pain 12 point review of systems is negative except for those stated above Patient History <Jamel Wilde PA-C - Last Filed: 04/16/22 16:51> Medical History (Updated 04/16/22 @ 16:50 by Jamel Wilde PA-C) Ankle pain (~2013) Depression (~1979) Diabetes mellitus (~2006) Foot pain (~2013) Fractures (~1969) Hay fever (~1979) Mumps Vertigo (~2006) Vision disorder Surgical History (Updated 06/13/19 @ 00:00 by ) Anesthesia Status post tubal ligation (~1999) Trigger finger of right thumb (~1999) Family History Father Cancer Heart disease Grandfather Diabetes mellitus Heart disease Stroke Grandmother Diabetes mellitus Stroke Mother Heart disease Grandmother Heart disease Social History household members: spouse Smoking Status: Former smoker Smoking Status: Former smoker alcohol intake frequency: a few times a week Substance Use Type: does not use Exam <Jamel Wilde PA-C - Last Filed: 04/16/22 16:51> Narrative Exam Narrative: GENERAL: Well-developed patient, in mild distress. HEAD: Atraumatic. Normocephalic. EYES: Pupils equal round and reactive. Extraocular motions intact. No scleral icterus. No injection or drainage. ENT: Nose without bleeding, purulent drainage. Throat without erythema, tonsillar hypertrophy or exudate. Airway patent. NECK: Trachea midline. Non tender CARDIOVASCULAR: Regular rate and rhythm without murmurs, gallops, or rubs. RESPIRATORY: Clear to auscultation. Breath sounds equal bilaterally. No wheezes, rales, or rhonchi. GASTROINTESTINAL: Abdomen soft, non-tender, nondistended. EXTREMITIES: Mild tenderness to palpation to right paralumbar muscles BACK: Nontender without deformity or crepitance. No flank tenderness. NEURO: AOx3. SKIN: No rash or erythema of visible areas Initial Vital Signs Initial Vital Signs: Vital Signs Temperature 98.5 F 04/16/22 13:57 Pulse Rate 61 04/16/22 13:57 Respiratory Rate 20 04/16/22 13:57 Blood Pressure 126/73 04/16/22 13:57 Pulse Oximetry 97 04/16/22 13:57 Oxygen Delivery Method 04/16/22 13:57 <Emiliano Montiel DO - Last Filed: 04/26/22 07:44> Initial Vital Signs Initial Vital Signs: Vital Signs Temperature 98.5 F 04/16/22 13:57 Pulse Rate 61 04/16/22 13:57 Respiratory Rate 20 04/16/22 13:57 Blood Pressure 126/73 04/16/22 13:57 Pulse Oximetry 97 04/16/22 13:57 Oxygen Delivery Method 04/16/22 13:57 Course <Jamel Wilde PA-C - Last Filed: 04/16/22 16:51> Orders Ordered: Discontinued Medications Ketorolac Tromethamine (Ketorolac 30 Mg/Ml Vial) 15 mg IM NOW ONE Stop: 04/16/22 16:51 Last Admin: 04/16/22 17:06 Dose: 15 mg Documented By: ALFREDITOK Vital Signs Vital signs: Vital Signs - 8 hr 04/16/22 13:57 04/16/22 15:10 Temperature 98.5 F Pulse Rate 61 66 Respiratory Rate 20 16 Blood Pressure 126/73 112/62 Pulse Oximetry 97 97 Oxygen Delivery Method Room Air Room Air <DO Silver Mckee Last Filed: 04/26/22 07:44> Orders Ordered: Discontinued Medications Ketorolac Tromethamine (Ketorolac 30 Mg/Ml Vial) 15 mg IM NOW ONE Stop: 04/16/22 16:51 Last Admin: 04/16/22 17:06 Dose: 15 mg Documented By: ALFREDITOK Vital Signs Vital signs: Vital Signs - 8 hr 04/16/22 13:57 04/16/22 15:10 Temperature 98.5 F Pulse Rate 61 66 Respiratory Rate 20 16 Blood Pressure 126/73 112/62 Pulse Oximetry 97 97 Oxygen Delivery Method Room Air Room Air MDM - Back Pain/Injury <Jamel Wilde PA-C - Last Filed: 04/16/22 16:51> Lab Data Labs: Urine Dip Bedside Urine Glucose 500 mg/dl Bedside Urine Bilirubin - Negative Bedside Urine Ketone - Negative Urine Specific [place] 1.02 Bedside Urine Occult Blood - Negative Bedside Urine pH 5.5 Bedside Urine Protein +/- 15 Bedside Urine Urobilinogen - Negative Bedside Urine Nitrite - Negative Bedside Urine Leukocytes - Negative Esterase Imaging Data Lumbar x-ray : Radiologist's Impression: Renuka Floyd Nena??61??F??1960 ? Allergy/Adv: Penicillins Close Lumbar Spine X-Ray (Signed) Chani Qureshi - 04/16/22 Vascular Ultrasound (Signed) Brian Tirado - 04/16/22 Thoracic Spine X-Ray (Signed) Suhas Melchor - 04/05/22 Lumbar Spine MRI (Signed) Arpit Naik - 06/30/20 Hip X-Ray (Signed) Kemal Sosa - 06/30/20 Echocardiogram Ultrasound (Signed) Rayray Young - 03/29/20 Hand MRI (Signed) Arpit Naik - 03/24/20 Hand MRI (Signed) Arpit Naik - 03/24/20 Wrist X-Ray (Signed) Evelyn,Stewarteyu - 09/11/19 Hand X-Ray (Addendum) Evelyn,Stewarteyu - 09/11/19 Knee X-Ray (Signed) Evelyn,Stewarteyu - 09/11/19 Wrist X-Ray (Signed) Evelyn,Stewarteyu - 09/11/19 Hand X-Ray (Signed) Evelyn,Stewarteyu - 09/11/19 Chest CTA (Signed) Call,Quinn - 05/29/19 Abdomen/Pelvis CT (Signed) Call,Quinn - 05/29/19 EKG Rpt. 05/29/19 Chest X-Ray (Signed) Call,Quinn - 05/29/19 Abdomen X-Ray (Signed) Call,Quinn - 05/29/19 Hepatobiliary Scan Nuclear Medicine (Signed) Choco Stringer - 05/19/19 Abdomen Ultrasound (Signed) Puneet Love - 04/27/19 Pelvis Ultrasound (Signed) Kemal Sosa - 04/16/19 Abdomen Ultrasound (Signed) Brian Tirado - 04/14/19 Echocardiogram Ultrasound (Signed) Rayray Young - 11/28/18 DI Result 05/26/18 Shoulder X-Ray (Signed) LeslyJadiel - 01/16/18 Cervical Spine X-Ray (Signed) LeslyJadiel - 01/16/18 Launch?Image [address] [address] XRay Report Signed Patient: Renuka Floyd MR#: [id number] : 1960 Acct:[id number] Age/Sex: 61 / F Date of Service: 04/16/22 Loc: ED Accession Number: [id number] ?? Procedure: XR lumbar spine 2-3V Ordering Provider: Jamel Wilde P.A-C PROCEDURE:? XR LUMBAR SPINE 2-3V ? INDICATIONS:? Midline LBP ? TECHNIQUE:? 3 views of the lumbar spine were acquired.? ? COMPARISON:? [facility], , L-SPINE 2-3 VIEWS, 04/22/2017, 11:26. ? FINDINGS:? ? Bones:? Five [id number] vertebrae are present.? Progression of mild bilateral endplate spurs at multiple levels.? Trace anterolisthesis L4 on five, stable compared to the prior study.? Mild L3-4 disc height loss, similar compared to prior.? No significant progression of disc degeneration.? No vertebral body compression fractures.? No suspicious bony lesions.? ? Soft tissues:? Overlying bowel gas pattern is normal.? No suspicious soft tissue calcifications.? Surgical clips in the gallbladder fossa. ? ? IMPRESSION:? ? 1. No acute vertebral body fractures. ? 2. Slight progression of lateral endplate spurs without significant progression of disc height loss.? ? ? Dictated by: Chani Qureshi M.D. on 04/16/2022 at 16:13 ? ? Approved by: Chani Qureshi M.D. on 04/16/2022 at 16:14 ? US - DVT: Radiologist's Impression: [address] [address] Ultrasound Report Signed Patient: Renuka Floyd MR#: [id number] : 1960 Acct:[id number] Age/Sex: 61 / F Date of Service: 04/16/22 Loc: ED Accession Number: [id number] ?? Procedure: US periph venous low extrem rt Ordering Provider: Jamel Wilde P.A-C PROCEDURE:? US PERIPH VENOUS LOW EXTREM RT ? INDICATIONS:? PAIN AND SWELLING ? TECHNIQUE:? Real-time imaging, as well as color and pulse Doppler interrogation, were performed of the lower extremity deep veins from the inguinal ligament to the popliteal fossa.? ? COMPARISON:? None. ? FINDINGS:? The common femoral, femoral and popliteal veins are normally compressible, and free of intraluminal thrombus.? Color and pulse Doppler demonstrate normal phasic intraluminal flow.? There is normal augmentation response to distal compression maneuver. ? ? IMPRESSION:? ? Negative for deep venous thrombosis. ? ? Dictated by: Brian Tirado M.D. on 04/16/2022 at 15:03 ? ? Approved by: Brian Tirado M.D. on 04/16/2022 at 15:03 ? MDM Narrative Medical decision making narrative: This is a 61-year-old female presents to the emergency department due to sciatica like symptoms. Due to the extended period of sitting in the car described by the patient right lower extremity ultrasound ordered which was negative for DVT. Patient also requested a lumbar x-ray as she ?feels like the pain is coming from her back?. Lumbar x-ray showed no acute fractures although did show mild chronic degeneration. Toradol given IM here in the emergency department prescription for muscle relaxants given as the patient does describe a feeling of ?tightening up? in her right posterior lower extremity. Neurovascularly intact throughout. <Emiliano Montiel DO - Last Filed: 04/26/22 07:44> Lab Data Labs: Urine Dip Bedside Urine Glucose 500 mg/dl Bedside Urine Bilirubin - Negative Bedside Urine Ketone - Negative Urine Specific [place] 1.02 Bedside Urine Occult Blood - Negative Bedside Urine pH 5.5 Bedside Urine Protein +/- 15 Bedside Urine Urobilinogen - Negative Bedside Urine Nitrite - Negative Bedside Urine Leukocytes - Negative Esterase Discharge Plan Departure Patient Disposition: Home Clinical Impression: Sciatica Instructions: DI for Sciatica Activity Restrictions/Additional Instructions: Thank you for coming to the [facility] Emergency Department today. The ultrasound was negative for any kind of blood clot in the lumbar x-ray did not show any acute fractures just chronic degenerative changes. The Toradol given as well as muscle relaxants prescribed should help with the pain. Recommended follow up with your primary care doctor for possible referral physical therapy for further lower back pain and leg exercises he can do to help with the pain. I suspect this is muscular in nature. I hope you feel better soon. Prescriptions: New cyclobenzaprine 10 mg tablet 10 mg PO BEDTIME PRN (Reason: muscle spasm) Qty: 14 0RF No Action citalopram [Celexa] 40 mg tablet 20 mg PO QPM metformin 1,000 mg tablet 1,000 mg PO BID Rx Instructions: 1000 mg am and night. 500mg afternoon metformin 1,000 mg Tablet 500 mg PO DAILY Rx Instructions: 500mg po q afternoon. 1000mg am and pm Glucose: Test Strips 0 str miscellaneous BID tramadol 50 mg tablet 50 mg PO Q6H PRN (Reason: pain) Qty: 30 0RF acetaminophen [Tylenol] 325 mg capsule 650 mg PO QID PRN (Reason: pain) Qty: 60 0RF Referrals: Mk Quevedo MD [Primary Care Provider] - Visit Report Forms: Patient Portal/API <Emiliano Montiel DO - Last Filed: 04/26/22 07:44> [facility] Dr Montiel Co-Sign Statement: I was available for consultation during this patient's emergency department visit. This chart is signed by myself for administrative purposes only. I did not have direct contact with this patient during this visit. They were seen independently by the APC.
--- NOTE | 2022-04-16 15:44 | DI.RAD.S_ITS ---
PROCEDURE: XR LUMBAR SPINE 2-3V INDICATIONS: Midline LBP TECHNIQUE: 3 views of the lumbar spine were acquired. COMPARISON: [facility], , L-SPINE 2-3 VIEWS, 04/22/2017, 11:26. FINDINGS: Bones: Five [id number] vertebrae are present. Progression of mild bilateral endplate spurs at multiple levels. Trace anterolisthesis L4 on five, stable compared to the prior study. Mild L3-4 disc height loss, similar compared to prior. No significant progression of disc degeneration. No vertebral body compression fractures. No suspicious bony lesions. Soft tissues: Overlying bowel gas pattern is normal. No suspicious soft tissue calcifications. Surgical clips in the gallbladder fossa. IMPRESSION: 1. No acute vertebral body fractures. 2. Slight progression of lateral endplate spurs without significant progression of disc height loss. Dictated by: Chani Qureshi M.D. on 04/16/2022 at 16:13 Approved by: Chani Qureshi M.D. on 04/16/2022 at 16:14
[2022-04-16] MEDS: KETOROLAC 30 MG/ML VIAL 15 MG IM (17:06)
== END 2022-04-16 17:06 | disposition home or self-care (01) ==
PROVIDERS: Emergency Provider Physician Assistant Medical; Family Provider Internal Medicine; PCP Internal Medicine
DX: M54.41 Lumbago with sciatica, right side (principal)
CPT/HCPCS: 72100; 81003; 93971; 96372; 99283; J1885

== ENCOUNTER 2023-01-05 17:05 | Emergency (ER) | payer OTHER, SELFPAY ==
[2023-01-05 17:11] VITALS: BP 165/79; PULSE 73; RESP 16; TEMP 36.4; O2SAT 98; BMI 32.7
--- NOTE | 2023-01-05 17:29 | DI.CT.S_ITS ---
PROCEDURE: CT ABDOMEN PELVIS W CON INDICATIONS: Right upper quadrant pain, history of cholecystectomy TECHNIQUE: After the administration of intravenous contrast, axial sections acquired from the lung bases to the pubic symphysis. Coronal and sagittal reformats were performed. For radiation dose reduction, the following was used: automated exposure control, adjustment of mA and/or kV according to patient size. COMPARISON: [facility], CT, CT ABDOMEN PELVIS W CON, 05/29/2019, 17:56. FINDINGS: Lower thorax: The lung bases are clear. Heart size normal. No hiatal hernia. Liver: The liver is diffusely decreased in attenuation without focal mass lesion. Biliary system: Cholecystectomy. No intra or extrahepatic bile duct dilation. Pancreas: Unremarkable without mass or inflammation evident. Spleen: Normal in size and density. Adrenals: Normal morphology and density. Reproductive system: Unremarkable as visualized. Urinary system: Normal renal size and attenuation. No renal calculi, hydronephrosis, or solid mass present. Urinary bladder unremarkable. Gastrointestinal system: Moderate fecal debris throughout the colon. No obstruction. Multiple diverticula arise from the sigmoid colon without evidence of diverticulitis. Appendix: No findings to suggest acute appendicitis. Peritoneal spaces: No mesenteric or retroperitoneal adenopathy. No free air. No free fluid. Vasculature: The IVC, aorta and iliac vasculature are unremarkable. Abdominal wall: Abdominal wall intact without evidence of ventral or inguinal hernias. Musculoskeletal: Normal bone mineralization. Degenerative disc disease and arthropathy noted in lower lumbar spine. No acute fractures. IMPRESSION: 1. Moderate fecal debris throughout the colon without obstruction. 2. Cholecystectomy Approved by: Js Kenyon M.D. on 01/05/2023 at 18:25
--- NOTE | 2023-01-05 17:32 | ED.ABDPAIN ---
HPI - Abdominal Pain <SANJUANITA Covington - Last Filed: 01/06/23 10:23> General Chief Complaint: Abdominal Pain Stated Complaint: R sided abd pain x5days Time Seen by Provider: 01/05/23 17:25 History of Present Illness HPI narrative: This is a 62 year old female with history of type 2 diabetes, cholecystectomy and degenerative disc disease who presents emergency department complaining of 5 days of right lower quadrant and right upper quadrant pain where her gallbladder was and states that it is progressing and getting worse than the occasional pain she has in the right upper quadrant. She is concerned about her appendix. Denies nausea, vomiting, states that she has a headache and feels a little bit poorly today. Has not had much of an appetite. States that 4 days ago she was moving and putting a lot of plants and she thinks she strained a muscle in her right lower abdomen. She states that she could have been dehydrated and has had urinary frequency. She denies fever, chills, weakness, difficulty concentrating, vision changes, flank pain but endorses the right-sided abdominal pain which has been getting worse. Related Data Home Medications Medication Instructions Recorded Confirmed Glucose: Test Strips 0 str miscellaneous BID 04/14/19 06/29/19 citalopram 40 mg tablet (Celexa) 20 mg PO QPM 04/14/19 06/29/19 metformin 1,000 mg tablet 1,000 mg PO BID 04/14/19 06/29/19 metformin 1,000 mg tablet 500 mg PO DAILY 04/14/19 06/29/19 Previous Rx's Medication Instructions Recorded acetaminophen 325 mg capsule 650 mg PO QID PRN pain #60 caps 05/26/19 (Tylenol) tramadol 50 mg tablet 50 mg PO Q6H PRN pain #30 tabs 05/26/19 cyclobenzaprine 10 mg tablet 10 mg PO BEDTIME PRN muscle spasm 04/16/22 #14 tabs sulfamethoxazole 800 1 tab PO BID 5 days #10 tabs 01/05/23 mg-trimethoprim 160 mg tablet (Bactrim DS) Allergies Allergy/AdvReac Type Severity Reaction Status Date / Time Penicillins Allergy Mild RASH Verified 06/29/19 15:07 Review of Systems <SANJUANITA Covington - Last Filed: 01/06/23 10:23> Review of Systems ROS Unobtainable: All systems reviewed & are unremarkable except as noted in HPI and below Patient History <SANJUANITA Covingtno - Last Filed: 01/06/23 10:23> Medical History (Updated 01/05/23 @ 19:46 by Estrella Martinez MD) Ankle pain (~2013) Depression (~1979) Diabetes mellitus (~2006) Foot pain (~2013) Fractures (~1969) Hay fever (~1979) Mumps Vertigo (~2006) Vision disorder Surgical History Anesthesia Status post tubal ligation (~1999) Trigger finger of right thumb (~1999) Family History Father Cancer Heart disease Grandfather Diabetes mellitus Heart disease Stroke Grandmother Diabetes mellitus Stroke Mother Heart disease Grandmother Heart disease Social History household members: spouse Smoking Status: Former smoker Smoking Status: Former smoker alcohol intake frequency: a few times a week Substance Use Type: does not use Exam <SANJUANITA Covington - Last Filed: 01/06/23 10:23> Narrative Exam Narrative: Reviewed vitals signs and nursing notes. General: Pleasant, sitting upright, in no acute distress, well groomed, afebrile HEENT: symmetrical facial expressions, moist mucous membranes, neck is supple CV: regular rate and rhythm, warm extremities Respiratory: normal work of breathing, without tachypnea or hypoxia. GI: abdomen soft, nondistended, mildly tender to the right upper and right lower quadrant without CVA tenderness bilaterally. MSK: moves all extremities, no weakness, normal tone, ambulatory without deficit Skin: brisk capillary refill, without rash or wound Neuro: clear speech and normal cognition, A&O x3, GCS 15, no focal motor or sensation deficits Initial Vital Signs Initial Vital Signs: Vital Signs Temperature 97.6 F 01/05/23 17:11 Pulse Rate 73 01/05/23 17:11 Respiratory Rate 16 01/05/23 17:11 Blood Pressure 165/79 H 01/05/23 17:11 Pulse Oximetry 98 01/05/23 17:11 Oxygen Delivery Method Room Air 01/05/23 17:11 <Estrella Martinez MD - Last Filed: 01/05/23 19:47> Initial Vital Signs Initial Vital Signs: Vital Signs Temperature 97.6 F 01/05/23 17:11 Pulse Rate 73 01/05/23 17:11 Respiratory Rate 16 01/05/23 17:11 Blood Pressure 165/79 H 01/05/23 17:11 Pulse Oximetry 98 01/05/23 17:11 Oxygen Delivery Method Room Air 01/05/23 17:11 <Juan Garcia DO - Last Filed: 01/06/23 13:08> Initial Vital Signs Initial Vital Signs: Vital Signs Temperature 97.6 F 01/05/23 17:11 Pulse Rate 73 01/05/23 17:11 Respiratory Rate 16 01/05/23 17:11 Blood Pressure 165/79 H 01/05/23 17:11 Pulse Oximetry 98 01/05/23 17:11 Oxygen Delivery Method Room Air 01/05/23 17:11 Course <SANJUANITA Covington - Last Filed: 01/06/23 10:23> Orders Ordered: Discontinued Medications Trimethoprim/Sulfamethoxazole (Trimeth/Sulfa 160/800 (Ds) Tablet) 1 tab PO NOW ONE Stop: 01/05/23 18:15 Last Admin: 01/05/23 18:30 Dose: 1 tab Documented By: DE Vital Signs Vital signs: Vital Signs - 8 hr 01/05/23 17:11 Temperature 97.6 F Pulse Rate 73 Respiratory Rate 16 Blood Pressure 165/79 H Pulse Oximetry 98 Oxygen Delivery Method Room Air <Estrella Martinez MD - Last Filed: 01/05/23 19:47> Orders Ordered: Discontinued Medications Trimethoprim/Sulfamethoxazole (Trimeth/Sulfa 160/800 (Ds) Tablet) 1 tab PO NOW ONE Stop: 01/05/23 18:15 Last Admin: 01/05/23 18:30 Dose: 1 tab Documented By: RLS Vital Signs Vital signs: Vital Signs - 8 hr 01/05/23 17:11 Temperature 97.6 F Pulse Rate 73 Respiratory Rate 16 Blood Pressure 165/79 H Pulse Oximetry 98 Oxygen Delivery Method Room Air <Juan Garcia DO - Last Filed: 01/06/23 13:08> Orders Ordered: Discontinued Medications Trimethoprim/Sulfamethoxazole (Trimeth/Sulfa 160/800 (Ds) Tablet) 1 tab PO NOW ONE Stop: 01/05/23 18:15 Last Admin: 01/05/23 18:30 Dose: 1 tab Documented By: DE Vital Signs Vital signs: Vital Signs - 8 hr 01/05/23 17:11 Temperature 97.6 F Pulse Rate 73 Respiratory Rate 16 Blood Pressure 165/79 H Pulse Oximetry 98 Oxygen Delivery Method Room Air MDM - Abdominal Pain <SANJUANITA Covington - Last Filed: 01/06/23 10:23> Lab Data 01/05/23 17:36 01/05/23 17:36 Labs: Lab Results 01/05/23 01/05/23 01/05/23 Range/Units 17:17 17:36 17:36 WBC 6.7 (4.5-11.0) X10^3/uL RBC 4.75 (4.0-5.2) X10^6/uL Hgb 15.0 (12.0-16.0) g/dL Hct 43.3 (36-46) % MCV 91.2 (80-100) fL MCH 31.6 (26-34) PG MCHC 34.7 (30-36) % RDW 12.5 (11.6-14.8) % Plt Count 221 (150-400) X10^3/uL Neut % (Auto) 44.7 L (50-75) % Lymph % (Auto) 43.6 H (25-40) % Mitchell % (Auto) 9.4 (3-14) % Eos % (Auto) 2.0 (2-4) % Baso % (Auto) 0.3 (0-2) % Neut # (Auto) 3000 (1122-2525) /uL Lymph # (Auto) 2900 (0167-8481) /uL Mitchell # (Auto) 600 (0-900) /uL Eos # (Auto) 100 (0-450) /uL Baso # (Auto) 0 (0-100) /uL Sodium 138 (137-145) mmol/L Potassium 4.3 (3.4-5.1) mmol/L Chloride 101 (98-107) mmol/L Carbon Dioxide 27 (22-32) mmol/L BUN 19 H (7-17) mg/dL Creatinine 0.74 (0.52-1.04) mg/dL Estimated GFR > 60 (>60) mL/min BUN/Creatinine Ratio 25.7 H (6-22) Glucose 117 H (80-110) mg/dL Calcium 9.8 (8.4-10.2) mg/dL Magnesium 1.8 (1.6-2.3) mg/dL Total Bilirubin 0.5 (0.2-1.3) mg/dL AST 28 (14-36) IU/L ALT 24 (<35) IU/L Alkaline Phosphatase 101 (38-126) U/L Total Protein 8.1 (6.3-8.2) g/dL Albumin 4.6 (3.5-5.0) g/dL Globulin 3.5 (1.7-4.1) g/dL Albumin/Globulin Ratio 1.3 (1.0-2.8) Lipase 173 (23-300) U/L Urine RBC 0-1/hpf (0-5/HPF) Urine WBC 10-30/hpf H (0-5/HPF) Ur Squamous Epith Cells 0-1 /hpf (0-5/HPF) Urine Bacteria Moderate (10-30) H (None) Ur Culture Indicated? Specimen cultured Point of care testing: Urine Dip Bedside Urine Glucose 1000 mg/dl Bedside Urine Bilirubin - Negative Bedside Urine Ketone - Negative Urine Specific [place] 1.010 Bedside Urine Occult Blood - Negative Bedside Urine pH 6.5 Bedside Urine Protein - Negative Bedside Urine Urobilinogen - Negative Bedside Urine Nitrite - Negative Bedside Urine Leukocytes - Negative Esterase MDM Narrative Medical decision making narrative: Chief Complaint: Right abdominal pain Primary historian: Patient Multiple etiologies for patient's complaint considered including, but not limited to: Choledocholithiasis, cholangitis, appendicitis, urinary tract infection, nephrolithiasis, pyelonephritis, perforated viscus, diverticulitis, colitis, muscle strain, dehydration I have independently reviewed the patient's vital signs and nursing notes as well as prior records if available. My interpretation of imaging: CT abdomen pelvis with contrast shows Course of care: Patient says she is comfortable does not need pain medication at this time, is afebrile, history of diabetes, pending urine micro, urine dip is negative for abnormality other than glucose in urine, all of her lab work is unremarkable, no leukocytosis, no elevation to liver enzymes, without anemia. UA shows WBCs and moderate bacteria, urine culture is pending. CT abdomen pelvis is pending, signed out to Dr. Martinez who agrees to bend results and patient was started on Bactrim b.i.d. for 5 days for urinary tract infection without upper symptoms including CVA tenderness, fever, nausea, vomiting or chills. Social considerations that may affect disposition: none Questions are addressed and there is agreement with the plan and for follow-up. I consulted with the ED attending physician Dr. Garcia as needed for higher level of care considerations and they were available for discussion and recommendations regarding plan of care and diagnostic testing. Patient is appropriate for outpatient management. <Estrella Martinez MD - Last Filed: 01/05/23 19:47> Lab Data Labs: Lab Results 01/05/23 01/05/23 01/05/23 Range/Units 17:17 17:36 17:36 WBC 6.7 (4.5-11.0) X10^3/uL RBC 4.75 (4.0-5.2) X10^6/uL Hgb 15.0 (12.0-16.0) g/dL Hct 43.3 (36-46) % MCV 91.2 (80-100) fL MCH 31.6 (26-34) PG MCHC 34.7 (30-36) % RDW 12.5 (11.6-14.8) % Plt Count 221 (150-400) X10^3/uL Neut % (Auto) 44.7 L (50-75) % Lymph % (Auto) 43.6 H (25-40) % Mitchell % (Auto) 9.4 (3-14) % Eos % (Auto) 2.0 (2-4) % Baso % (Auto) 0.3 (0-2) % Neut # (Auto) 3000 (6346-9259) /uL Lymph # (Auto) 2900 (2646-4931) /uL Mitchell # (Auto) 600 (0-900) /uL Eos # (Auto) 100 (0-450) /uL Baso # (Auto) 0 (0-100) /uL Sodium 138 (137-145) mmol/L Potassium 4.3 (3.4-5.1) mmol/L Chloride 101 (98-107) mmol/L Carbon Dioxide 27 (22-32) mmol/L BUN 19 H (7-17) mg/dL Creatinine 0.74 (0.52-1.04) mg/dL Estimated GFR > 60 (>60) mL/min BUN/Creatinine Ratio 25.7 H (6-22) Glucose 117 H (80-110) mg/dL Calcium 9.8 (8.4-10.2) mg/dL Magnesium 1.8 (1.6-2.3) mg/dL Total Bilirubin 0.5 (0.2-1.3) mg/dL AST 28 (14-36) IU/L ALT 24 (<35) IU/L Alkaline Phosphatase 101 (38-126) U/L Total Protein 8.1 (6.3-8.2) g/dL Albumin 4.6 (3.5-5.0) g/dL Globulin 3.5 (1.7-4.1) g/dL Albumin/Globulin Ratio 1.3 (1.0-2.8) Lipase 173 (23-300) U/L Urine RBC 0-1/hpf (0-5/HPF) Urine WBC 10-30/hpf H (0-5/HPF) Ur Squamous Epith Cells 0-1 /hpf (0-5/HPF) Urine Bacteria Moderate (10-30) H (None) Ur Culture Indicated? Specimen cultured Point of care testing: Urine Dip Bedside Urine Glucose 1000 mg/dl Bedside Urine Bilirubin - Negative Bedside Urine Ketone - Negative Urine Specific [place] 1.010 Bedside Urine Occult Blood - Negative Bedside Urine pH 6.5 Bedside Urine Protein - Negative Bedside Urine Urobilinogen - Negative Bedside Urine Nitrite - Negative Bedside Urine Leukocytes - Negative Esterase MDM Narrative Medical decision making narrative: Chief Complaint: Right abdominal pain Primary historian: Patient Multiple etiologies for patient's complaint considered including, but not limited to: Choledocholithiasis, cholangitis, appendicitis, urinary tract infection, nephrolithiasis, pyelonephritis, perforated viscus, diverticulitis, colitis, muscle strain, dehydration I have independently reviewed the patient's vital signs and nursing notes as well as prior records if available. My interpretation of imaging: CT abdomen pelvis with contrast shows Course of care: Patient says she is comfortable does not need pain medication at this time, is afebrile, history of diabetes, pending urine micro, urine dip is negative for abnormality other than glucose in urine, all of her lab work is unremarkable, no leukocytosis, no elevation to liver enzymes, without anemia. UA shows WBCs and moderate bacteria, urine culture is pending. CT abdomen pelvis is pending, signed out to Dr. Martinez who agrees to bend results and patient was started on Bactrim b.i.d. for 5 days for urinary tract infection without upper symptoms including CVA tenderness, fever, nausea, vomiting or chills. Social considerations that may affect disposition: none Questions are addressed and there is agreement with the plan and for follow-up. I consulted with the ED attending physician Dr. Garcia as needed for higher level of care considerations and they were available for discussion and recommendations regarding plan of care and diagnostic testing. Patient is appropriate for outpatient management. Dr. Martinez, 7:40 p.m.. Care is assumed. Patient is independently evaluated. CT scan shows no acute findings but suggests moderate fecal load. Findings reviewed with patient will suggest stool softeners and MiraLax as well as treatment for her urinary tract infection. Questions are answered and she is safe for discharge home <Juan Garcia, DO - Last Filed: 01/06/23 13:08> Lab Data Labs: Lab Results 01/05/23 01/05/23 01/05/23 Range/Units 17:17 17:36 17:36 WBC 6.7 (4.5-11.0) X10^3/uL RBC 4.75 (4.0-5.2) X10^6/uL Hgb 15.0 (12.0-16.0) g/dL Hct 43.3 (36-46) % MCV 91.2 (80-100) fL MCH 31.6 (26-34) PG MCHC 34.7 (30-36) % RDW 12.5 (11.6-14.8) % Plt Count 221 (150-400) X10^3/uL Neut % (Auto) 44.7 L (50-75) % Lymph % (Auto) 43.6 H (25-40) % Mitchell % (Auto) 9.4 (3-14) % Eos % (Auto) 2.0 (2-4) % Baso % (Auto) 0.3 (0-2) % Neut # (Auto) 3000 (9341-7632) /uL Lymph # (Auto) 2900 (6263-8666) /uL Mitchell # (Auto) 600 (0-900) /uL Eos # (Auto) 100 (0-450) /uL Baso # (Auto) 0 (0-100) /uL Sodium 138 (137-145) mmol/L Potassium 4.3 (3.4-5.1) mmol/L Chloride 101 (98-107) mmol/L Carbon Dioxide 27 (22-32) mmol/L BUN 19 H (7-17) mg/dL Creatinine 0.74 (0.52-1.04) mg/dL Estimated GFR > 60 (>60) mL/min BUN/Creatinine Ratio 25.7 H (6-22) Glucose 117 H (80-110) mg/dL Calcium 9.8 (8.4-10.2) mg/dL Magnesium 1.8 (1.6-2.3) mg/dL Total Bilirubin 0.5 (0.2-1.3) mg/dL AST 28 (14-36) IU/L ALT 24 (<35) IU/L Alkaline Phosphatase 101 (38-126) U/L Total Protein 8.1 (6.3-8.2) g/dL Albumin 4.6 (3.5-5.0) g/dL Globulin 3.5 (1.7-4.1) g/dL Albumin/Globulin Ratio 1.3 (1.0-2.8) Lipase 173 (23-300) U/L Urine RBC 0-1/hpf (0-5/HPF) Urine WBC 10-30/hpf H (0-5/HPF) Ur Squamous Epith Cells 0-1 /hpf (0-5/HPF) Urine Bacteria Moderate (10-30) H (None) Ur Culture Indicated? Specimen cultured Point of care testing: Urine Dip Bedside Urine Glucose 1000 mg/dl Bedside Urine Bilirubin - Negative Bedside Urine Ketone - Negative Urine Specific [place] 1.010 Bedside Urine Occult Blood - Negative Bedside Urine pH 6.5 Bedside Urine Protein - Negative Bedside Urine Urobilinogen - Negative Bedside Urine Nitrite - Negative Bedside Urine Leukocytes - Negative Esterase Discharge Plan Departure Patient Disposition: Home Clinical Impression: Urinary tract infection Qualifiers: Urinary tract infection type: acute cystitis Hematuria presence: without hematuria Qualified Code(s): N30.00 - Acute cystitis without hematuria Constipation Qualifiers: Constipation type: unspecified constipation type Qualified Code(s): K59.00 - Constipation, unspecified Instructions: Urinary Tract Infection, DI for Constipation Activity Restrictions/Additional Instructions: *You have been diagnosed with a urinary tract infection. Your blood work came back very reassuring that you have a bloodstream infection, kidney issues, pancreatitis, or other organ abnormality. You most likely have a urinary tract infection causing the symptoms which of course are vague and obscure in nature. Please stay hydrated, I think you also have a muscle strain and abdominal muscle strains can be awkward and ongoing for 1-2 weeks so please try to use Tylenol and or ibuprofen together for your symptoms. Your right sided abdominal pain may also be exacerbated by constipation. The CT scan does look like you have quite a bit of stool over on the right side. Using stool softeners and laxatives to completely clean out your bowels may be helpful overall in controlling the pain as well. *What to do: *Please continue to take your regular medications as directed. [ ] New medication prescriptions sent to your pharmacy: [[facility] ] [ ] New medication written as a paper prescription [ ] No new medications given *Please call and schedule follow up with your primary care provider in 2-3 days, at least for an update. Let them know you were seen in the Emergency Department for the above problem. We will electronically transmit a record of today's note if your PCP or specialist is in our system. *If you do not have a primary care provider please contact [phone] to establish care with one of the [facility] primary care providers. *Return to the Emergency Department for worsening symptoms, inability to keep liquids down, fever greater than 101F, chills, or other concerning symptom. Prescriptions: New sulfamethoxazole-trimethoprim [Bactrim DS] 800-160 mg tablet 1 tab PO BID 5 Days Qty: 10 0RF No Action citalopram [Celexa] 40 mg tablet 20 mg PO QPM metformin 1,000 mg tablet 1,000 mg PO BID Rx Instructions: 1000 mg am and night. 500mg afternoon metformin 1,000 mg Tablet 500 mg PO DAILY Rx Instructions: 500mg po q afternoon. 1000mg am and pm Glucose: Test Strips 0 str miscellaneous BID cyclobenzaprine 10 mg tablet 10 mg PO BEDTIME PRN (Reason: muscle spasm) Qty: 14 0RF tramadol 50 mg tablet 50 mg PO Q6H PRN (Reason: pain) Qty: 30 0RF acetaminophen [Tylenol] 325 mg capsule 650 mg PO QID PRN (Reason: pain) Qty: 60 0RF Referrals: Mk Quevedo MD [Primary Care Provider] - Stand Alone Forms: Patient Portal/API <Juan Garcia DO - Last Filed: 01/06/23 13:08> Cosign ED Attending Brandanature Attestation: I was immediately available in the department for consultation. Documentation has been reviewed. I agree with assessment and plan.
[2023-01-05 17:59] LABS: Alanine Aminotransferase 24 IU/L (<35); Albumin 4.6 g/dL (3.5-5.0); Albumin Globulin Ratio 1.3 (1.0-2.8); Alkaline Phosphatase 101 U/L (38-126); Aspartate Aminotransferase 28 IU/L (14-36); BUN Creatinine Ratio 25.7 (6-22); Bilirubin Total 0.5 mg/dL (0.2-1.3); Blood Urea Nitrogen 19 mg/dL (7-17); Calcium 9.8 mg/dL (8.4-10.2); Carbon Dioxide 27 mmol/L (22-32); Chloride 101 mmol/L (98-107); Estimated Glomerular Filt Rate > 60 mL/min (>60); Globulin 3.5 g/dL (1.7-4.1); Glucose 117 mg/dL (80-110); HEMOLYSIS 44 (0-50); Lipase 173 U/L (23-300); Magnesium 1.8 mg/dL (1.6-2.3); Potassium 4.3 mmol/L (3.4-5.1); Sodium 138 mmol/L (137-145); Total Protein 8.1 g/dL (6.3-8.2)
[2023-01-05 18:05] LABS: Add Manual Diff / Slide Review NO; Basophils Absolute Auto 0 /uL (0-100); Basophils Percent Auto 0.3 % (0-2); Eosinophils Absolute Auto 100 /uL (0-450); Hematocrit 43.3 % (36-46); Lymphocytes Absolute Auto 2900 /uL (1100-4500); Lymphocytes Percent Auto 43.6 % (25-40); Mean Corpuscular HGB Conc 34.7 % (30-36); Mean Corpuscular Hemoglobin 31.6 PG (26-34); Mean Corpuscular Volume 91.2 fL (80-100); Monocytes Absolute Auto 600 /uL (0-900); Monocytes Percent Auto 9.4 % (3-14); Neutrophils Absolute Auto 3000 /uL (1500-7000); Neutrophils Percent Auto 44.7 % (50-75); Platelet Count 221 X10^3/uL (150-400); Red Blood Cell Count 4.75 X10^6/uL (4.0-5.2); Red Cell Distribution Width 12.5 % (11.6-14.8); White Blood Cell Count 6.7 X10^3/uL (4.5-11.0)
[2023-01-05 18:09] LABS: Bacteria Urine Moderate (10-30); Culture Indicated Urine Specimen Cultured; RBC Urine 0-1/HPF (0-5/HPF); Squamous Epithelial Cell Urine 0-1 /HPF (0-5/HPF); WBC Urine 10-30/HPF (0-5/HPF)
[2023-01-05] MEDS: TRIMETH/SULFA 160/800 (DS) TABLET 1 TAB PO (18:30)
[2023-01-05 19:57] VITALS: BP 179/81; PULSE 67; RESP 18; TEMP 36.4; O2SAT 99
== END 2023-01-05 19:59 | disposition home or self-care (01) ==
PROVIDERS: Nurse Practitioner Critical Care Medicine; Emergency Provider Emergency Medicine; Family Provider Internal Medicine; PCP Internal Medicine
DX: N30.00 Acute cystitis without hematuria (principal); K59.00 Constipation, unspecified
CPT/HCPCS: 36415; 74177; 80053; 81003; 81015; 83690; 83735; 85025; 87077; 87086; 87186; 99284; Q9967

== ENCOUNTER → 2023-03-13 09:12 | Outpatient (CLI) | payer OTHER, SELFPAY ==
--- NOTE | 2023-03-13 | DI.RAD.S_ITS ---
PROCEDURE: XR KNEE LT 4V INDICATIONS: left knee pain TECHNIQUE: 5 views of the knee were acquired. COMPARISON: [facility], , XR KNEE RT 3V, 09/11/2019, 10:09. [facility], , KNEE 3V RIGHT, 09/06/2015, 10:22. FINDINGS: Bones: No fractures or dislocations. No suspicious bony lesions. Soft tissues: Trace joint effusion. No suspicious soft tissue calcifications. IMPRESSION: No acute osseous abnormality. If pain persists with conservative management, consider repeat x-ray in 10-14 days or cross-sectional imaging. Dictated by: Yosef Whitmore M.D. on 03/13/2023 at 11:14 Approved by: Yosef Whitmore M.D. on 03/13/2023 at 11:20
== END ==
PROVIDERS: Family Provider Internal Medicine; PCP Physician Assistant; Referring Provider Physician Assistant; Visit Provider Physician Assistant
DX: M25.562 Pain in left knee (principal)
CPT/HCPCS: 73564

== ENCOUNTER → 2023-04-11 14:25 | Outpatient (CLI) | payer OTHER, SELFPAY | PROVIDERS: Family Provider Internal Medicine; PCP Physician Assistant; Visit Provider Physician Assistant | DX: N39.0 Urinary tract infection, site not specified (principal) | CPT/HCPCS: 87086 ==

== ENCOUNTER → 2023-10-17 08:59 | Outpatient (CLI) | payer OTHER, SELFPAY ==
[2023-10-17 10:20] LABS: Hemoglobin A1C% w Est Avg Glu 7.7 % (4.0-6.0)
[2023-10-17 10:22] LABS: Creatinine Urine Random 53.6 mg/dL
[2023-10-17 10:24] LABS: Microalbumi Creatinin Ratio Ur 20.5 ug/mg CR (<30); Microalbumin Urine Random 1.1 mg/dL (0-1.6)
[2023-10-17 10:48] LABS: BUN Creatinine Ratio 21.1 (6-22); Blood Urea Nitrogen 16 mg/dL (7-17); Calcium 10.4 mg/dL (8.4-10.2); Carbon Dioxide 29 mmol/L (22-32); Chloride 106 mmol/L (98-107); Cholesterol 210 mg/dL (140-199); Estimated Glomerular Filt Rate > 60 mL/min (>60); Glucose 166 mg/dL (80-110); HDL Cholesterol 66 mg/dL (40-60); HEMOLYSIS < 15 (0-50); LDL Cholesterol Calculated 128 mg/dL (<100); Sodium 141 mmol/L (137-145); Triglycerides 81 mg/dL (35-150)
[2023-10-17 10:59] LABS: Thyroid Stimulating Hormone 2.38 uIU/mL (0.47-4.68)
[2023-10-17 11:19] LABS: Vitamin B12 837 pg/mL (239-931)
== END ==
PROVIDERS: Family Provider Internal Medicine; PCP Physician Assistant; Referring Provider Nurse Practitioner Family; Visit Provider Nurse Practitioner Family
DX: E11.65 Type 2 diabetes mellitus with hyperglycemia (principal)
CPT/HCPCS: 36415; 80048; 80061; 82043; 82570; 82607; 83036; 84443

== ENCOUNTER 2024-06-20 11:23 | Emergency (ER) | payer OTHER, SELFPAY ==
[2024-06-20] VITALS (9 sets, daily range): BP systolic 135–188; BP diastolic 59–85; PULSE 60–71; RESP 12–22; TEMP 36.9; O2SAT 95–99; BMI 32.9
--- NOTE | 2024-06-20 11:49 | EKG_ITS ---
[address] [address] Test Date: 2024-06-20 Pat Name: Renuka Floyd Department: [facility] Room: Gender: Female Fitness Professional: EMERALD : 1960 Requested By: Order Number: [id number] Reading MD: Heriberto Brown Measurements Intervals [place] Rate: 64 P: 40 NC: 182 QRS: 62 QRSD: 72 T: 51 QT: 400 QTc: 412 Interpretive Statements Normal sinus rhythm Low voltage QRS Electronically Signed On 06-22-2024 7:48:41 PST by Heriberto Brown
[2024-06-20] MEDS: ONDANSETRON 4 MG/2 ML INJ IV (12:00)
--- NOTE | 2024-06-20 12:05 | ED_ITS ---
HPI - Abdominal Pain General Chief Complaint: Abdominal Pain Stated Complaint: right sided rib pain Time Seen by Provider: 06/20/24 12:04 Source: patient Mode of arrival: Ambulatory History of Present Illness HPI narrative: patient is a 63-year-old female with a history of hyperlipidemia, diabetes presents to the emergency department for evaluation of right sided abdominal pain denies any nausea vomiting has been ongoing and persistent for the past 2 weeks. States that she has had her gallbladder removed in the past. States that it was in 2019, she does state that ever since she got her gallbladder removed her pain has never truly gone away she states that she always does have baseline intermittent pressure but over the past 2 weeks it has gotten significantly worse does endorse some nausea but no vomiting no recent travel no known sick contacts no trauma. Therefore decided come into the ED for further evaluation. States that she does have a GI doctor saw them last year for her colonoscopy but has not inform them about her persistent right upper quadrant abdominal pain. states that her GI doctor is and matthew. Related Data Home Medications Medication Instructions Recorded Confirmed Glucose: Test Strips 0 str miscellaneous BID 04/14/19 06/29/19 citalopram 40 mg tablet (Celexa) 20 mg PO QPM 04/14/19 06/29/19 metformin 1,000 mg tablet 1,000 mg PO BID 04/14/19 06/29/19 metformin 1,000 mg tablet 500 mg PO DAILY 04/14/19 06/29/19 Previous Rx's Medication Instructions Recorded acetaminophen 325 mg capsule 650 mg (2 x 325 mg) PO QID PRN 05/26/19 (Tylenol) pain #60 caps tramadol 50 mg tablet 50 mg PO Q6H PRN pain #30 tabs 05/26/19 cyclobenzaprine 10 mg tablet 10 mg PO BEDTIME PRN muscle spasm 04/16/22 #14 tabs sulfamethoxazole 800 1 tab PO BID 14 days #28 tabs 06/20/24 mg-trimethoprim 160 mg tablet (Bactrim DS) Allergies Allergy/AdvReac Type Severity Reaction Status Date / Time Penicillins Allergy Mild RASH Verified 06/29/19 15:07 Review of Systems Review of Systems Narrative: General: Denies fever, chills, weight loss HEENT: Denies headache, eye drainage, eye irritation, head trauma, sore throat, voice change Cardiovascular: Denies any chest pain, palpitations, shortness of breath, tachycardia Respiratory: Denies any shortness of breath, cough, wheeze, stridor GI/: positive right-sided abdominal pain, nausea, denies vomiting, diarrhea, bright red blood per rectum, melanotic stools, urinary frequency, urinary retention, dysuria, hematuria MSK: Denies any joint pain, muscle pains, swelling Skin: Denies any rashes, lesions, discoloration Neuro: Denies any headache, lightheadedness, dizziness, fainting, weakness Psych: Denies SI/HI Patient History Medical History (Updated 06/20/24 @ 14:07 by Estevan Mensah DO) Vision disorder Hay fever (~1979) Depression (~1979) Fractures (~1969) Foot pain (~2013) Ankle pain (~2013) Mumps Vertigo (~2006) Diabetes mellitus (~2006) Surgical History Anesthesia Trigger finger of right thumb (~1999) Status post tubal ligation (~1999) Family History Father Cancer Heart disease Grandfather Diabetes mellitus Heart disease Stroke Grandmother Diabetes mellitus Stroke Mother Heart disease Grandmother Heart disease Social History household members: spouse Smoking Status: Former smoker Smoking Status: Former smoker alcohol intake frequency: a few times a week Substance Use Type: does not use Exam Narrative Exam Narrative: General: Cooperative, comfortable, well-developed, not in acute distress HEENT: Normocephalic, atraumatic, PERRLA, normal sclera, eyelids normal, Neck: Active full range of motion, atraumatic Chest: Normal to inspection, negative crepitus, no overlying erythema ecchymosis Respiratory: Normal respiratory effort, not in acute respiratory distress, clear to auscultation bilaterally negative cough, wheeze, tachypnea, rhonchi, rales Cardiology: Regular rate rhythm negative gallop, murmur, rubs GI/: Normal to inspection, soft, nonrigid, no tenderness to palpation, exam deferred MSK: Full range of active range of motion of all 4 extremities, atraumatic Skin: No rashes lesions noted Neuro: Alert awake oriented x3, moves all 4 extremities spontaneously, cranial nerves intact, able to answer all questions appropriately follows commands appropriately Psych: Cooperative, negative suicidal or homicidal ideations Initial Vital Signs Initial Vital Signs: Vital Signs Temperature 98.4 F 06/20/24 11:36 Pulse Rate 64 06/20/24 11:36 Respiratory Rate 18 06/20/24 11:36 Blood Pressure 188/85 H 06/20/24 11:36 Pulse Oximetry 98 06/20/24 11:36 Oxygen Delivery Method Room Air 06/20/24 11:36 Course Orders Ordered: ED Orders 06/20/24 11:41 EKG-12 Lead Stat 06/20/24 11:51 Complete Blood Count AUTO DIFF Stat Comprehensive Metabolic Panel Stat Lipase Stat 06/20/24 11:54 MAG [Magnesium] Stat 06/20/24 12:18 CT abdomen pelvis w con Stat 06/20/24 13:34 Urinalysis and Microscopic Stat Urine Culture Stat Ondansetron HCl (Ondansetron 4 Mg/2 Ml Inj) 4 mg IV NOW PRN PRN Reason: Nausea And Vomiting Last Admin: 06/20/24 12:00 Dose: 4 mg Documented By: DORIE Ondansetron HCl (Ondansetron 4 Mg Odt) 4 mg PO NOW PRN PRN Reason: Nausea And Vomiting Discontinued Medications Ketorolac Tromethamine (Ketorolac 30 Mg/Ml Vial) 15 mg IV NOW ONE Stop: 06/20/24 12:19 Last Admin: 06/20/24 12:30 Dose: 15 mg Documented By: DORIE Trimethoprim/Sulfamethoxazole (Trimeth/Sulfa 160/800 (Ds) Tablet) 1 tab PO NOW ONE Stop: 06/20/24 14:05 Vital Signs Vital signs: Vital Signs - 8 hr 06/20/24 11:36 06/20/24 11:46 06/20/24 12:00 Temperature 98.4 F Pulse Rate 64 70 66 Respiratory Rate 18 13 Blood Pressure 188/85 H Pulse Oximetry 98 98 98 Oxygen Delivery Method Room Air 06/20/24 12:01 06/20/24 12:01 06/20/24 12:30 Temperature Pulse Rate 69 60 Respiratory Rate 22 12 Blood Pressure 144/66 H Pulse Oximetry 99 95 Oxygen Delivery Method 06/20/24 12:30 06/20/24 12:49 06/20/24 12:49 Temperature Pulse Rate 71 Respiratory Rate 14 Blood Pressure 160/70 H 148/67 H Pulse Oximetry 98 Oxygen Delivery Method 06/20/24 13:00 06/20/24 13:00 Temperature Pulse Rate 71 Respiratory Rate 13 Blood Pressure 135/59 L Pulse Oximetry 97 Oxygen Delivery Method MDM - Abdominal Pain Differential Diagnosis Differential diagnosis: Likely abdominal pain, constipation, diverticulitis, small bowel obstruction and other ( pyelonephritis, urinary tract infection) Lab Data 06/20/24 11:51 06/20/24 11:51 Labs: Lab Results 06/20/24 06/20/24 06/20/24 Range/Units 11:51 11:54 13:34 WBC 6.6 (4.5-11.0) X10^3/uL RBC 5.00 (4.0-5.2) X10^6/uL Hgb 15.7 (12.0-16.0) g/dL Hct 46.9 H (36-46) % MCV 93.9 (80-100) fL MCH 31.4 (26-34) PG MCHC 33.4 (30-36) % RDW 12.5 (11.6-14.8) % Plt Count 242 (150-400) X10^3/uL Neut % (Auto) 46.4 L (50-75) % Lymph % (Auto) 42.3 H (25-40) % Wright % (Auto) 8.3 (3-14) % Eos % (Auto) 1.7 L (2-4) % Baso % (Auto) 1.3 (0-2) % Neut # (Auto) 3100 (8439-6472) /uL Lymph # (Auto) 2800 (6152-0528) /uL Wright # (Auto) 600 (0-900) /uL Eos # (Auto) 100 (0-450) /uL Baso # (Auto) 100 (0-100) /uL Sodium 138 (137-145) mmol/L Potassium 4.2 (3.4-5.1) mmol/L Chloride 105 (98-107) mmol/L Carbon Dioxide 24 (22-32) mmol/L BUN 16 (7-17) mg/dL Creatinine 0.85 (0.52-1.04) mg/dL Estimated GFR > 60 (>60) mL/min BUN/Creatinine Ratio 18.8 (6-22) Glucose 107 (80-110) mg/dL Calcium 10.3 H (8.4-10.2) mg/dL Magnesium 1.8 (1.6-2.3) mg/dL Total Bilirubin 0.6 (0.2-1.3) mg/dL AST 32 (14-36) IU/L ALT 22 (<35) IU/L Alkaline Phosphatase 105 (38-126) U/L Total Protein 8.2 (6.3-8.2) g/dL Albumin 4.8 (3.5-5.0) g/dL Globulin 3.4 (1.7-4.1) g/dL Albumin/Globulin Ratio 1.4 (1.0-2.8) Lipase 139 (23-300) U/L Urine Color Yellow Urine Appearance Clear Urine pH 5.5 (4.5-8.0) Ur Specific [place] <=1.005 (1.000-1.035) Urine Protein Negative (Negative) Urine Glucose (UA) 3+ H (Negative) g/dL Urine Ketones Negative (NEGATIVE) Urine Occult Blood Negative (Negative) Urine Nitrate Positive H (Negative) Urine Bilirubin Negative (NEGATIVE) Urine Urobilinogen 0.2 (0.2) E.U./dL Ur Leukocyte Esterase Negative (NEGATIVE) Urine RBC None seen (0-5/HPF) Urine WBC 0-1/hpf (0-5/HPF) Ur Squamous Epith Cells None seen (0-5/HPF) Urine Bacteria Many (>30) H (None) Ur Culture Indicated? Specimen cultured Vol Urine Centrifuged 10ml (spun) Point of care testing: Urine Dip Bedside Urine Glucose 500 mg/dl Bedside Urine Bilirubin - Negative Bedside Urine Ketone - Negative Urine Specific [place] 1.000 Bedside Urine Occult Blood - Negative Bedside Urine pH 6.0 Bedside Urine Protein - Negative Bedside Urine Urobilinogen - Negative Bedside Urine Nitrite - Negative Bedside Urine Leukocytes - Negative Esterase ECG Data Interpretation: EKG interpreted by ED physician sinuses 64 beats per minute QTC [address] changes no STEMI MDM Narrative Medical decision making narrative: patient is a 63-year-old female with a history of diabetes, hyperlipidemia, status post cholecystectomy in 2019 presents for worsening right-sided abdominal pain states that she has a baseline intermittent pain to her right side ever since she had her cholecystectomy however over the past 2 weeks has had worsening symptoms therefore decided come into the ED for further evaluation treatment. CT scan without any acute findings, urinalysis was consistent with a urinary tract infection given right-sided abdominal pain with flank pain we will treat for pyelonephritis. Patient was instructed follow up with her GI doctor in outpatient setting, patient was given strict return precautions verbalized understanding of this and agrees to being discharged home with outpatient follow up. Discharge Plan Departure Patient Disposition: Home Clinical Impression: Pyelonephritis Activity Restrictions/Additional Instructions: Please read the discharge instructions sheet carefully and bring all papers to all doctor follow-up visits, as it may contain information that your doctor may want to see. Disease processes change and evolve, if your symptoms worsen or if you develop any new symptoms that are concerning to you please return for evaluation. Your evaluation today does not show any evidence of any life- threatening/serious illnesses requiring admission to the hospital or surgery. Please follow-up with your doctor for re-evaluation in approximately 1 day. Seek immediate medical attention for any worrisome symptoms. Prescriptions: New sulfamethoxazole-trimethoprim [Bactrim DS] 800-160 mg tablet 1 tab PO BID 14 Days Qty: 28 0RF No Action citalopram [Celexa] 40 mg tablet 20 mg PO QPM metformin 1,000 mg tablet 1,000 mg PO BID Rx Instructions: 1000 mg am and night. 500mg afternoon metformin 1,000 mg Tablet 500 mg PO DAILY Rx Instructions: 500mg po q afternoon. 1000mg am and pm Glucose: Test Strips 0 str miscellaneous BID cyclobenzaprine 10 mg tablet 10 mg PO BEDTIME PRN (Reason: muscle spasm) Qty: 14 0RF tramadol 50 mg tablet 50 mg PO Q6H PRN (Reason: pain) Qty: 30 0RF acetaminophen [Tylenol] 325 mg capsule 650 mg PO QID PRN (Reason: pain) Qty: 60 0RF Referrals: Taylor Gallegos PA-C [Primary Care Provider] - Stand Alone Forms: Patient Portal/API/Survey
[2024-06-20 12:08] LABS: Add Manual Diff / Slide Review NO; Basophils Absolute Auto 100 /uL (0-100); Basophils Percent Auto 1.3 % (0-2); Eosinophils Absolute Auto 100 /uL (0-450); Eosinophils Percent Auto 1.7 % (2-4); Hematocrit 46.9 % (36-46); Hemoglobin 15.7 g/dL (12.0-16.0); Lymphocytes Absolute Auto 2800 /uL (1100-4500); Lymphocytes Percent Auto 42.3 % (25-40); Mean Corpuscular HGB Conc 33.4 % (30-36); Mean Corpuscular Hemoglobin 31.4 PG (26-34); Mean Corpuscular Volume 93.9 fL (80-100); Monocytes Absolute Auto 600 /uL (0-900); Monocytes Percent Auto 8.3 % (3-14); Neutrophils Absolute Auto 3100 /uL (1500-7000); Neutrophils Percent Auto 46.4 % (50-75); Platelet Count 242 X10^3/uL (150-400); Red Cell Distribution Width 12.5 % (11.6-14.8); White Blood Cell Count 6.6 X10^3/uL (4.5-11.0)
--- NOTE | 2024-06-20 12:18 | DI.CT.S_ITS ---
PROCEDURE: CT ABDOMEN PELVIS W CON INDICATIONS: right sided abd pain TECHNIQUE: After the administration of intravenous contrast, axial sections acquired from the lung bases to the pubic symphysis. Coronal and sagittal reformats were performed. For radiation dose reduction, the following was used: automated exposure control, adjustment of mA and/or kV according to patient size. COMPARISON: [facility], CT, CT ABDOMEN PELVIS W CON, 01/05/2023, 18:22. FINDINGS: Image quality: Diagnostic. Lower Chest: No significant findings. ABDOMEN: Liver: No solid mass. Gallbladder: Removed. Biliary ducts: No biliary dilation. Pancreas: No ductal dilation. Spleen: Size is within normal limits. Incidental note is made of an accessory splenule along the hilum of the primary spleen. Adrenal Glands: No adrenal nodules. Kidneys and Ureters: No hydronephrosis. No solid mass. No complex renal cystic lesion which requires follow up. Stomach and Bowel: A normal appendix is partially seen, as on series 2 images 78 through 82 and on series 3 images 51 and 52. [id number] wall thickening can be seen involving the ascending colon. The more distal colon demonstrates areas of mild wall thickening. A few distal colonic diverticula can be seen, without lilian diverticulitis. No dilated loops of small bowel are seen. Peritoneum: No abnormal intraperitoneal fluid. No free air. Ventral Wall: A mild periumbilical hernia is seen, containing fat. Abdominal Nodes: No retroperitoneal or mesenteric adenopathy by size criteria. Vessels: Aorta and inferior vena cava are normal in size. PELVIS: Pelvic Organs: No adnexal masses are seen on either side. Bladder: No bladder wall thickening, accounting for underdistention. Pelvic Nodes: No enlarged lymph nodes. Miscellaneous: No inguinal hernias are seen. Bones: No aggressive osseous abnormality. Mild dextroconvex scoliotic curvature is seen. Age-appropriate bony degenerative changes are seen. IMPRESSION: Multifocal colonic wall thickening can be seen, which is worst within the ascending colon Please correlate with potential infectious and inflammatory causes of colitis. No findings of perforation or abscess can be seen. Normal appendix. Additional findings: Cholecystectomy Accessory splenule Mild fat containing periumbilical hernia Dictated by: Brian Tirado M.D. on 06/20/2024 at 11:58 Approved by: Brian Tirado M.D. on 06/20/2024 at 12:01
[2024-06-20 12:20] LABS: Alanine Aminotransferase 22 IU/L (<35); Albumin 4.8 g/dL (3.5-5.0); Albumin Globulin Ratio 1.4 (1.0-2.8); Alkaline Phosphatase 105 U/L (38-126); Aspartate Aminotransferase 32 IU/L (14-36); BUN Creatinine Ratio 18.8 (6-22); Bilirubin Total 0.6 mg/dL (0.2-1.3); Blood Urea Nitrogen 16 mg/dL (7-17); Calcium 10.3 mg/dL (8.4-10.2); Carbon Dioxide 24 mmol/L (22-32); Chloride 105 mmol/L (98-107); Estimated Glomerular Filt Rate > 60 mL/min (>60); Globulin 3.4 g/dL (1.7-4.1); Glucose 107 mg/dL (80-110); HEMOLYSIS 36 (0-50); Lipase 139 U/L (23-300); Potassium 4.2 mmol/L (3.4-5.1); Sodium 138 mmol/L (137-145); Total Protein 8.2 g/dL (6.3-8.2)
[2024-06-20] MEDS: KETOROLAC 30 MG/ML VIAL 15 MG IV (12:30)
[2024-06-20 12:52] LABS: Magnesium 1.8 mg/dL (1.6-2.3)
[2024-06-20 13:53] LABS: Appearance Urine UA CLEAR; Bilirubin Urine UA NEGATIVE (NEGATIVE); Color Urine UA YELLOW; Glucose Urine UA 3+ g/dL (Negative); Ketones Urine UA NEGATIVE (NEGATIVE); Leukocyte Esterase Urine UA NEGATIVE (NEGATIVE); Nitrite Urine UA POSITIVE (Negative); Occult Blood Urine UA NEGATIVE (Negative); Protein Urine UA NEGATIVE (Negative); Specific Gravity Urine UA <=1.005 (1.000-1.035); Urobilinogen Urine UA 0.2 E.U./dL (0.2); pH Urine UA 5.5 (4.5-8.0)
[2024-06-20 14:00] LABS: Bacteria Urine Many (>30); RBC Urine None Seen (0-5/HPF); Squamous Epithelial Cell Urine None Seen (0-5/HPF); Urine Volume 10mL (spun); WBC Urine 0-1/HPF (0-5/HPF)
[2024-06-20 14:01] LABS: Culture Indicated Urine Specimen Cultured
[2024-06-20] MEDS: TRIMETH/SULFA 160/800 (DS) TABLET 1 TAB PO (14:13)
== END 2024-06-20 14:18 | disposition home or self-care (01) ==
PROVIDERS: Emergency Provider Student in an Organized Health Care Education/Training Program; Family Provider Internal Medicine; PCP Physician Assistant
DX: N12 Tubulo-interstitial nephritis, not specified as acute or chronic (principal)
CPT/HCPCS: 36415; 74177; 80053; 81001; 81003; 83690; 83735; 85025; 87077; 87086; 87186; 93005; 96374; 96375; 99284; J1885; J2405; Q9967

== ENCOUNTER 2024-12-09 15:37 | Emergency (ER) | payer OTHER, SELFPAY ==
[2024-12-09] VITALS (10 sets, daily range): BP systolic 116–168; BP diastolic 57–75; PULSE 60–75; RESP 13–20; TEMP 36.5; O2SAT 95–97; BMI 32.5
--- NOTE | 2024-12-09 15:43 | EKG_ITS ---
[address] [address] Test Date: 2024-12-09 Pat Name: Renuka Floyd Department: Room: Gender: Female Proration Clerk: MCKENZIE : 1960 Requested By: Order Number: [id number] Reading MD: Bob Escobar MD Measurements Intervals [place] Rate: 69 P: 48 CT: 172 QRS: 67 QRSD: 70 T: 46 QT: 398 QTc: 426 Interpretive Statements Normal sinus rhythm with sinus arrhythmia Electronically Signed On 12-10-2024 7:41:36 PDT by Bob Escobar MD
[2024-12-09 16:19] LABS: Add Manual Diff / Slide Review NO; Basophils Absolute Auto 300 /uL (0-100); Eosinophils Absolute Auto 100 /uL (0-450); Eosinophils Percent Auto 2.2 % (2-4); Hematocrit 45.3 % (36-46); Hemoglobin 15.4 g/dL (12.0-16.0); Lymphocytes Absolute Auto 2300 /uL (1100-4500); Lymphocytes Percent Auto 36.3 % (25-40); Mean Corpuscular HGB Conc 34.1 % (30-36); Mean Corpuscular Hemoglobin 31.9 PG (26-34); Mean Corpuscular Volume 93.4 fL (80-100); Monocytes Absolute Auto 500 /uL (0-900); Monocytes Percent Auto 7.4 % (3-14); Neutrophils Absolute Auto 3200 /uL (1500-7000); Neutrophils Percent Auto 50.1 % (50-75); Platelet Count 222 X10^3/uL (150-400); Red Blood Cell Count 4.85 X10^6/uL (4.0-5.2); White Blood Cell Count 6.4 X10^3/uL (4.5-11.0)
[2024-12-09 16:24] LABS: Alanine Aminotransferase 26 IU/L (<35); Albumin 4.8 g/dL (3.5-5.0); Albumin Globulin Ratio 1.5 (1.0-2.8); Alkaline Phosphatase 100 U/L (38-126); Aspartate Aminotransferase 37 IU/L (14-36); BUN Creatinine Ratio 15.6 (6-22); Bilirubin Total 0.6 mg/dL (0.2-1.3); Blood Urea Nitrogen 15 mg/dL (7-17); Calcium 10.1 mg/dL (8.4-10.2); Carbon Dioxide 18 mmol/L (22-32); Chloride 109 mmol/L (98-107); Estimated Glomerular Filt Rate > 60 mL/min (>60); Globulin 3.2 g/dL (1.7-4.1); Glucose 97 mg/dL (70-99); HEMOLYSIS 18 (0-50); Lipase 166 U/L (23-300); Potassium 4.1 mmol/L (3.4-5.1); Sodium 140 mmol/L (137-145)
--- NOTE | 2024-12-09 18:28 | ED_ITS ---
HPI - Abdominal Pain General Chief Complaint: Abdominal Pain Stated Complaint: Right lower abdominal pain Time Seen by Provider: 12/09/24 18:28 Source: patient Mode of arrival: Ambulatory History of Present Illness HPI narrative: 64-year-old female past medical history of diabetes, hyperlipidemia, coming into the emergency department from home for evaluation of right lower quadrant abdominal pain, states it has been ongoing persistent for the past day, states she is that she has been having some mild nausea but no vomiting, denies any other symptoms such as headache visual disturbances chest pain shortness breath fever chills or any other GI/ symptoms. Related Data Home Medications Medication Instructions Recorded Confirmed Glucose: Test Strips 0 str miscellaneous BID 04/14/19 06/29/19 citalopram 40 mg tablet (Celexa) 20 mg PO QPM 04/14/19 06/29/19 metformin 1,000 mg tablet 1,000 mg PO BID 04/14/19 06/29/19 metformin 1,000 mg tablet 500 mg PO DAILY 04/14/19 06/29/19 Previous Rx's Medication Instructions Recorded acetaminophen 325 mg capsule 650 mg (2 x 325 mg) PO QID PRN 05/26/19 (Tylenol) pain #60 caps tramadol 50 mg tablet 50 mg PO Q6H PRN pain #30 tabs 05/26/19 cyclobenzaprine 10 mg tablet 10 mg PO BEDTIME PRN muscle spasm 04/16/22 #14 tabs Allergies Allergy/AdvReac Type Severity Reaction Status Date / Time Penicillins Allergy Mild RASH Verified 06/29/19 15:07 Review of Systems Review of Systems Narrative: General: Denies fever, chills, weight loss HEENT: Denies headache, eye drainage, eye irritation, head trauma, sore throat, voice change Cardiovascular: Denies any chest pain, palpitations, tachycardia Respiratory: Denies any shortness of breath, cough, wheeze, stridor GI/: Positive abdominal pain, nausea, denies vomiting, diarrhea, bright red blood per rectum, melanotic stools, urinary frequency, urinary retention, dysuria, hematuria MSK: Denies any joint pain, muscle pains, swelling Skin: Denies any rashes, lesions, discoloration Neuro: Denies any headache, lightheadedness, dizziness, fainting, weakness Psych: Denies SI/HI Patient History Medical History (Updated 12/09/24 @ 20:16 by Estevan Mensah DO) Vision disorder Hay fever (~1979) Depression (~1979) Fractures (~1969) Foot pain (~2013) Ankle pain (~2013) Mumps Vertigo (~2006) Diabetes mellitus (~2006) Surgical History Anesthesia Trigger finger of right thumb (~1999) Status post tubal ligation (~1999) Family History Father Cancer Heart disease Grandfather Diabetes mellitus Heart disease Stroke Grandmother Diabetes mellitus Stroke Mother Heart disease Grandmother Heart disease Social History household members: spouse Smoking Status: Never smoker Smoking Status: Never smoker alcohol intake frequency: a few times a week Exam Narrative Exam Narrative: General: Cooperative, well-developed, not in acute distress HEENT: Normocephalic, atraumatic, PERRLA, normal sclera, eyelids normal Neck: Active full range of motion, atraumatic Chest: Normal to inspection, negative crepitus, no overlying erythema ecchymosis Respiratory: Normal respiratory effort, not in acute respiratory distress, clear to auscultation bilaterally negative cough, wheeze, tachypnea, rhonchi, rales Cardiology: Regular rate rhythm negative gallop, murmur, rubs GI/: No tenderness to palpation, soft, non rigid, normal to inspection, exam deferred MSK: Full active range of motion in all 4 extremities, atraumatic, no tenderness to palpation of any bony prominences Skin: No rashes or lesions noted Neuro: Alert awake oriented x3, moves all 4 extremities spontaneously, cranial nerves intact, able to answer all questions appropriately follows commands appropriately Psych: Cooperative, negative suicidal or homicidal ideations Initial Vital Signs Initial Vital Signs: Vital Signs Temperature 97.7 F 12/09/24 15:40 Pulse Rate 75 12/09/24 15:40 Respiratory Rate 16 12/09/24 15:40 Blood Pressure 168/75 H 12/09/24 15:40 Pulse Oximetry 97 12/09/24 15:40 Oxygen Delivery Method Room Air 12/09/24 15:40 Course Orders Ordered: ED Orders 12/09/24 15:43 EKG-12 Lead Stat 12/09/24 16:00 Complete Blood Count AUTO DIFF Stat Comprehensive Metabolic Panel Stat Lipase Stat 12/09/24 18:29 CT abdomen pelvis w con Stat Ondansetron HCl (Ondansetron 4 Mg/2 Ml Inj) 4 mg IV NOW PRN PRN Reason: Nausea And Vomiting Ondansetron HCl (Ondansetron 4 Mg Odt) 4 mg PO NOW PRN PRN Reason: Nausea And Vomiting Vital Signs Vital signs: Vital Signs - 8 hr 12/09/24 15:40 12/09/24 16:09 12/09/24 16:30 Temperature 97.7 F Pulse Rate 75 74 63 Respiratory Rate 16 13 Blood Pressure 168/75 H Pulse Oximetry 97 97 97 Oxygen Delivery Method Room Air 12/09/24 16:30 12/09/24 17:00 12/09/24 17:00 Temperature Pulse Rate 69 Respiratory Rate 13 Blood Pressure 128/65 131/60 Pulse Oximetry 96 Oxygen Delivery Method 12/09/24 17:30 12/09/24 17:30 12/09/24 18:00 Temperature Pulse Rate 63 Respiratory Rate 13 Blood Pressure 123/58 L 119/57 L Pulse Oximetry 96 Oxygen Delivery Method 12/09/24 18:00 12/09/24 18:30 12/09/24 18:30 Temperature Pulse Rate 66 63 Respiratory Rate 16 14 Blood Pressure 116/57 L Pulse Oximetry 97 96 Oxygen Delivery Method MDM - Abdominal Pain Differential Diagnosis Differential diagnosis: Likely abdominal pain, acute appendicitis, constipation, diverticulitis and other (Electrolyte abnormality, urinary tract infection) Lab Data 12/09/24 16:00 12/09/24 16:00 Labs: Lab Results 12/09/24 Range/Units 16:00 WBC 6.4 (4.5-11.0) X10^3/uL RBC 4.85 (4.0-5.2) X10^6/uL Hgb 15.4 (12.0-16.0) g/dL Hct 45.3 (36-46) % MCV 93.4 (80-100) fL MCH 31.9 (26-34) PG MCHC 34.1 (30-36) % RDW 13.0 (11.6-14.8) % Plt Count 222 (150-400) X10^3/uL Neut % (Auto) 50.1 (50-75) % Lymph % (Auto) 36.3 (25-40) % [place] % (Auto) 7.4 (3-14) % Eos % (Auto) 2.2 (2-4) % Baso % (Auto) 4.0 H (0-2) % Neut # (Auto) 3200 (6427-1657) /uL Lymph # (Auto) 2300 (9940-0209) /uL [place] # (Auto) 500 (0-900) /uL Eos # (Auto) 100 (0-450) /uL Baso # (Auto) 300 H (0-100) /uL Sodium 140 (137-145) mmol/L Potassium 4.1 (3.4-5.1) mmol/L Chloride 109 H (98-107) mmol/L Carbon Dioxide 18 L (22-32) mmol/L BUN 15 (7-17) mg/dL Creatinine 0.96 (0.52-1.04) mg/dL Estimated GFR > 60 (>60) mL/min BUN/Creatinine Ratio 15.6 (6-22) Glucose 97 (70-99) mg/dL Calcium 10.1 (8.4-10.2) mg/dL Total Bilirubin 0.6 (0.2-1.3) mg/dL AST 37 H (14-36) IU/L ALT 26 (<35) IU/L Alkaline Phosphatase 100 (38-126) U/L Total Protein 8.0 (6.3-8.2) g/dL Albumin 4.8 (3.5-5.0) g/dL Globulin 3.2 (1.7-4.1) g/dL Albumin/Globulin Ratio 1.5 (1.0-2.8) Lipase 166 (23-300) U/L Point of care testing: Urine Dip Bedside Urine Glucose 1000 mg/dl Bedside Urine Bilirubin - Negative Bedside Urine Ketone - Negative Urine Specific [place] 1.015 Bedside Urine Occult Blood - Negative Bedside Urine pH 6 Bedside Urine Protein - Negative Bedside Urine Urobilinogen - Negative Bedside Urine Nitrite - Negative Bedside Urine Leukocytes - Negative Esterase Imaging Data CT scan - abdomen/pelvis: Radiologist's Impression: [address] [address] [address] Scan Report Signed Patient: Renuka Floyd MR#: [id number] : 1960 Acct:[id number] Age/Sex: 64 / F Date of Service: 12/09/24 Loc: ED Accession Number: [id number] Procedure: CT abdomen pelvis w con Ordering Provider: Estevan Mensah D.O. PROCEDURE: CT ABDOMEN PELVIS W CON INDICATIONS: RLQ abd pain TECHNIQUE: After the administration of intravenous contrast, axial sections acquired from the lung bases to the pubic symphysis. Coronal and sagittal reformats were performed. For radiation dose reduction, the following was used: automated exposure control, adjustment of mA and/or kV according to patient size. COMPARISON: [facility], CT, CT ABDOMEN PELVIS W CON, 06/20/2024, 12:40. FINDINGS: Image quality: Diagnostic. Lower Chest: No significant findings. ABDOMEN: Liver: No solid mass. Gallbladder: No radiopaque gallstones or wall thickening. Biliary ducts: No biliary dilation. Pancreas: No ductal dilation. Spleen: Size is within normal limits. Adrenal Glands: No adrenal nodules. Kidneys and Ureters: Parenchymal scarring bilaterally again seen. No hydronephrosis. Stomach and Bowel: Normal colonic caliber, without significant wall thickening. The appendix is partially obscured, appears unremarkable. No inflammatory changes. Peritoneum: No abnormal intraperitoneal fluid. No free air. Ventral Wall: No significant ventral hernia. Abdominal Nodes: No retroperitoneal or mesenteric adenopathy by size criteria. Vessels: Aorta and inferior vena cava are normal in size. PELVIS: Pelvic Organs: Unremarkable. Bladder: No bladder wall thickening, accounting for underdistention. Pelvic Nodes: No enlarged lymph nodes. Miscellaneous: No inguinal hernias are seen. Bones: No aggressive osseous abnormality. IMPRESSION: No acute intra-abdominal abnormality seen. ECG Data Interpretation: EKG interpreted ED physician sinus 69 beats per minute QTC [address] changes no STEMI MDM Narrative Medical decision making narrative: 64-year-old female history of diabetes hyperlipidemia presenting for right lower quadrant abdominal pain started spontaneously earlier today, states that it was a pressure now just feels ?numb patient had lab work without any signs of leukocytosis, Chem panel unremarkable urinalysis not consistent with acute urinary tract infection, CT scan of the abdomen did not show any signs of acute intra-abdominal abnormality, patient was given strict return precautions she verbalized understanding of this and agrees to being discharged home with outpatient follow up Discharge Plan Departure Patient Disposition: Home Clinical Impression: Abdominal pain Instructions: DI for Abdominal Pain-Adult Activity Restrictions/Additional Instructions: Please follow up with your primary care doctor Please read the discharge instructions sheet carefully and bring all papers to all doctor follow-up visits, as it may contain information that your doctor may want to see. Disease processes change and evolve, if your symptoms worsen or if you develop any new symptoms that are concerning to you please return for evaluation. Your evaluation today does not show any evidence of any life- threatening/serious illnesses requiring admission to the hospital or surgery. Please follow-up with your doctor for re-evaluation in approximately 1 day. Seek immediate medical attention for any worrisome symptoms. *If you do not have a primary care provider please contact the [facility] Resource line at [phone]. They will ask some questions about your medical history and help get you set up with a doctor in the community. Prescriptions: No Action citalopram [Celexa] 40 mg tablet 20 mg PO QPM metformin 1,000 mg tablet 1,000 mg PO BID Rx Instructions: 1000 mg am and night. 500mg afternoon metformin 1,000 mg Tablet 500 mg PO DAILY Rx Instructions: 500mg po q afternoon. 1000mg am and pm Glucose: Test Strips 0 str miscellaneous BID cyclobenzaprine 10 mg tablet 10 mg PO BEDTIME PRN (Reason: muscle spasm) Qty: 14 0RF tramadol 50 mg tablet 50 mg PO Q6H PRN (Reason: pain) Qty: 30 0RF acetaminophen [Tylenol] 325 mg capsule 650 mg PO QID PRN (Reason: pain) Qty: 60 0RF Referrals: Taylor Gallegos PA-C [Primary Care Provider] - Stand Alone Forms: Patient Portal/API/Survey
== END 2024-12-09 20:21 | disposition home or self-care (01) ==
PROVIDERS: Emergency Medicine; Emergency Provider Student in an Organized Health Care Education/Training Program; Family Provider Internal Medicine; PCP Physician Assistant
DX: R10.31 Right lower quadrant pain (principal); R11.0 Nausea
CPT/HCPCS: 74177; 80053; 81003; 83690; 85025; 93005; 99283; 99284; Q9967

== ENCOUNTER 2025-04-11 21:52 | Emergency (ER) | payer OTHER, SELFPAY ==
[2025-04-11] VITALS (8 sets, daily range): BP systolic 114–161; BP diastolic 54–74; PULSE 60–75; RESP 15–24; TEMP 36.6; O2SAT 96–99; BMI 31.1
--- NOTE | 2025-04-11 21:58 | DI.RAD.S_ITS ---
PROCEDURE: XR CHEST 1V INDICATIONS: Chest Pain TECHNIQUE: One view of the chest was acquired. COMPARISON: [facility], CR, XR CHEST 1V, 05/29/2019, 17:16. FINDINGS: Surgical changes and devices: None. Lungs and pleura: Mild pulmonary vascular congestion. No definite focal infiltrate. No pleural effusions or pneumothorax. Mediastinum: Mediastinal contours appear normal. Heart size is normal. Bones and chest wall: No suspicious bony lesions. Overlying soft tissues appear unremarkable. IMPRESSION: Mild congestion. No definite focal infiltrate. No pleural effusion or pneumothorax. Dictated by: Paul Gutiérrez M.D. on 04/11/2025 at 22:30 Approved by: Paul Gutiérrez M.D. on 04/11/2025 at 22:30
--- NOTE | 2025-04-11 22:01 | EKG_ITS ---
[address] [address] Test Date: 2025-04-11 Pat Name: Renuka Floyd Department: [facility] Room: Gender: Female Ecommerce Manager: GLENROY : 1960 Requested By: Order Number: [id number] Reading MD: Bob Escobar MD Measurements Intervals [place] Rate: 69 P: 63 NV: 184 QRS: 74 QRSD: 72 T: 81 QT: 422 QTc: 452 Interpretive Statements Normal sinus rhythm with sinus arrhythmia Electronically Signed On 04-12-2025 7:47:37 PDT by Bob Escobar MD
[2025-04-11 22:20] LABS: Add Manual Diff / Slide Review NO; Hematocrit 43.4 % (36-46); Hemoglobin 15.0 g/dL (12.0-16.0); Lymphocytes Absolute Auto 2400 /uL (1100-4500); Mean Corpuscular HGB Conc 34.4 % (30-36); Mean Corpuscular Hemoglobin 31.4 PG (26-34); Mean Corpuscular Volume 91.2 fL (80-100); Platelet Count 248 X10^3/uL (150-400)
[2025-04-11 22:23] LABS: INR 0.9 (0.9-1.3); Prothrombin Time 10.7 SECONDS (9.4-12.5)
[2025-04-11 22:26] LABS: PTT Partial Thromboplastin Tim 31 SECONDS (25.1-36.5)
[2025-04-11 22:27] LABS: Alanine Aminotransferase 24 IU/L (<35); Albumin 4.5 g/dL (3.5-5.0); Albumin Globulin Ratio 1.4 (1.0-2.8); Alkaline Phosphatase 97 U/L (38-126); Blood Urea Nitrogen 16 mg/dL (7-17); Calcium 10.0 mg/dL (8.4-10.2); Carbon Dioxide 27 mmol/L (22-32); Chloride 107 mmol/L (98-107); Creatine Kinase 69 U/L (30-135); Estimated Glomerular Filt Rate > 60 mL/min (>60); Globulin 3.3 g/dL (1.7-4.1); Glucose 133 mg/dL (70-99); HEMOLYSIS < 15 (0-50); Lipase 155 U/L (23-300); Magnesium 1.9 mg/dL (1.6-2.3); Potassium 4.3 mmol/L (3.4-5.1); Sodium 139 mmol/L (137-145); Total Protein 7.8 g/dL (6.3-8.2)
[2025-04-11 22:40] LABS: NT-proBNP (BNP-Adult 18+) 438 pg/mL (<125); Troponin I < 0.012 ng/mL (0.01-0.034)
--- NOTE | 2025-04-11 22:55 | ED.CHESTPAIN ---
HPI - Chest Pain General Chief Complaint: Chest Pain Stated Complaint: anxiety Time Seen by Provider: 04/11/25 22:28 History of Present Illness HPI narrative: 64-year-old female with intermittent chest discomfort, awaiting vacation trip to [place] upcoming, had screening echocardiogram, we will have stress test upcoming, hopefully we will be cleared for travel. This evening felt anxious, history of anxiety, had some chest discomfort radiating to the back, worse when she was leaning over. History of reflux, takes Pepcid. Related Data Home Medications ?Medication ?Instructions ?Recorded ?Confirmed Glucose: Test Strips 0 str miscellaneous BID 04/14/19 04/11/25 metformin 1,000 mg tablet 1,000 mg PO BID 04/14/19 04/11/25 buspirone 5 mg tablet 5 mg PO 3XD 04/11/25 04/11/25 empagliflozin 25 mg tablet 25 mg PO DAILY 04/11/25 04/11/25 (Jardiance) Allergies Allergy/AdvReac Type Severity Reaction Status Date / Time Penicillins Allergy Mild RASH Verified 01/17/25 13:34 Patient History Medical History (Updated 04/12/25 @ 01:16 by Ayush Woods MD) Vision disorder Hay fever (~1979) Depression (~1979) Fractures (~1969) Foot pain (~2013) Ankle pain (~2013) Mumps Vertigo (~2006) Diabetes mellitus (~2006) Surgical History Anesthesia Trigger finger of right thumb (~1999) Status post tubal ligation (~1999) Family History Father Cancer Heart disease Grandfather Diabetes mellitus Heart disease Stroke Grandmother Diabetes mellitus Stroke Mother Heart disease Grandmother Heart disease Social History household members: spouse Smoking Status: Former smoker Smoking Status: Former smoker alcohol intake frequency: a few times a week Exam Narrative Exam Narrative: GENERAL: Well-developed patient, in mild distress. HEAD: Atraumatic. Normocephalic. EYES: Pupils equal round and reactive. Extraocular motions intact. No scleral icterus. No injection or drainage. ENT: Nose without bleeding, purulent drainage. Throat without erythema, tonsillar hypertrophy or exudate. Airway patent. NECK: Trachea midline. Non tender CARDIOVASCULAR: Regular rate and rhythm without murmurs, gallops, or rubs. RESPIRATORY: Clear to auscultation. Breath sounds equal bilaterally. No wheezes, rales, or rhonchi. GASTROINTESTINAL: Abdomen soft, non-tender, nondistended. EXTREMITIES: No edema or joint tenderness. BACK: Nontender without deformity or crepitance. No flank tenderness. NEURO: AOx3. Motor functions grossly nonfocal. SKIN: No rash or erythema of visible areas Initial Vital Signs Initial Vital Signs: Vital Signs Pulse Rate 75 04/11/25 21:56 Pulse Oximetry 99 04/11/25 21:56 Course Orders Ordered: ED Orders 04/11/25 21:58 XR chest 1V Stat EKG-12 Lead Stat 04/11/25 22:05 Complete Blood Count AUTO DIFF Stat Comprehensive Metabolic Panel Stat Lipase Stat Magnesium Stat NT-proBNP (BNP-Adult 18+) Stat PTT Partial Thromboplastin Ramez Stat Prothrombin Time INR Stat Troponin & CK Cardiac Panel Stat 04/12/25 00:35 Troponin I Stat Discontinued Medications Pantoprazole Sodium (Pantoprazole 40 Mg Vial) 40 mg IV NOW ONE Stop: 04/12/25 00:15 Last Admin: 04/12/25 00:37 Dose: 40 mg Documented By: Giselle Vital Signs Vital signs: Vital Signs - 8 hr 04/11/25 21:56 04/11/25 21:58 04/11/25 22:00 Temperature 97.8 F Pulse Rate 75 60 61 Respiratory Rate 22 23 Blood Pressure 161/74 H Pulse Oximetry 99 98 98 Oxygen Delivery Method Room Air 04/11/25 22:01 04/11/25 22:01 04/11/25 22:30 Temperature Pulse Rate 62 73 Respiratory Rate 19 18 Blood Pressure 161/74 H Pulse Oximetry 98 97 Oxygen Delivery Method Room Air 04/11/25 22:30 04/11/25 23:00 04/11/25 23:00 Temperature Pulse Rate 64 Respiratory Rate 15 Blood Pressure 139/65 114/54 L Pulse Oximetry 96 Oxygen Delivery Method 04/11/25 23:30 04/11/25 23:31 04/11/25 23:31 Temperature Pulse Rate 70 71 Respiratory Rate 24 22 Blood Pressure 144/68 H Pulse Oximetry 97 97 Oxygen Delivery Method 04/12/25 00:00 04/12/25 00:01 04/12/25 00:01 Temperature Pulse Rate 67 65 Respiratory Rate 20 24 Blood Pressure 129/61 Pulse Oximetry 97 97 Oxygen Delivery Method 04/12/25 00:30 04/12/25 00:30 04/12/25 01:00 Temperature Pulse Rate 64 57 L Respiratory Rate 18 16 Blood Pressure 130/62 Pulse Oximetry 96 96 Oxygen Delivery Method 04/12/25 01:00 04/12/25 01:30 04/12/25 01:30 Temperature Pulse Rate 60 Respiratory Rate 15 Blood Pressure 120/58 L 134/62 Pulse Oximetry 98 Oxygen Delivery Method 04/12/25 02:00 04/12/25 02:00 Temperature Pulse Rate 59 L Respiratory Rate 24 Blood Pressure 117/73 Pulse Oximetry 98 Oxygen Delivery Method MDM - Chest Pain Lab Data Attestation: I reviewed the patient's lab results. Lab results narrative: White blood cell count 6100, hemoglobin 15, platelets adequate. Glucose 133. Normal renal function, carbon dioxide, electrolytes. Liver functions and lipase normal. BNP 438 not particularly elevated. Initial troponin negative/unmeasurable. 04/11/25 22:05 04/11/25 22:05 Labs: Lab Results 04/11/25 04/12/25 Range/Units 22:05 00:35 WBC 6.1 (4.5-11.0) X10^3/uL RBC 4.76 (4.0-5.2) X10^6/uL Hgb 15.0 (12.0-16.0) g/dL Hct 43.4 (36-46) % MCV 91.2 (80-100) fL MCH 31.4 (26-34) PG MCHC 34.4 (30-36) % RDW 12.8 (11.6-14.8) % Plt Count 248 (150-400) X10^3/uL Neut % (Auto) 48.3 L (50-75) % Lymph % (Auto) 40.0 (25-40) % [place] % (Auto) 8.1 (3-14) % Eos % (Auto) 2.7 (2-4) % Baso % (Auto) 0.9 (0-2) % Neut # (Auto) 2900 (0014-9095) /uL Lymph # (Auto) 2400 (5684-7118) /uL [place] # (Auto) 500 (0-900) /uL Eos # (Auto) 200 (0-450) /uL Baso # (Auto) 100 (0-100) /uL PT 10.7 (9.4-12.5) SECONDS INR 0.9 (0.9-1.3) APTT 31 (25.1-36.5) SECONDS Sodium 139 (137-145) mmol/L Potassium 4.3 (3.4-5.1) mmol/L Chloride 107 (98-107) mmol/L Carbon Dioxide 27 (22-32) mmol/L BUN 16 (7-17) mg/dL Creatinine 0.90 (0.52-1.04) mg/dL Estimated GFR > 60 (>60) mL/min BUN/Creatinine Ratio 17.8 (6-22) Glucose 133 H (70-99) mg/dL Calcium 10.0 (8.4-10.2) mg/dL Magnesium 1.9 (1.6-2.3) mg/dL Total Bilirubin 0.5 (0.2-1.3) mg/dL AST 35 (14-36) IU/L ALT 24 (<35) IU/L Alkaline Phosphatase 97 (38-126) U/L Total Creatine Kinase 69 (30-135) U/L Troponin I < 0.012 < 0.012 (0.01-0.034) ng/mL NT-Pro-B Natriuret Pep 438 H (<125) pg/mL Total Protein 7.8 (6.3-8.2) g/dL Albumin 4.5 (3.5-5.0) g/dL Globulin 3.3 (1.7-4.1) g/dL Albumin/Globulin Ratio 1.4 (1.0-2.8) Lipase 155 (23-300) U/L Imaging Data Chest x-ray: Radiologist's Impression: Renuka Floyd??64??F??1960 ? Allergy/Adv: [address] [address] XRay Report Signed Patient: Renuka Floyd MR#: [id number] : 1960 Acct:[id number] Age/Sex: 64 / F Date of Service: 04/11/25 Loc: ED Accession Number: [id number] Procedure: XR chest 1V Ordering Provider: Ayush Woods MD PROCEDURE: XR CHEST 1V INDICATIONS: Chest Pain TECHNIQUE: One view of the chest was acquired. COMPARISON: [facility], CR, XR CHEST 1V, 05/29/2019, 17:16. FINDINGS: Surgical changes and devices: None. Lungs and pleura: Mild pulmonary vascular congestion. No definite focal infiltrate. No pleural effusions or pneumothorax. Mediastinum: Mediastinal contours appear normal. Heart size is normal. Bones and chest wall: No suspicious bony lesions. Overlying soft tissues appear unremarkable. IMPRESSION: Mild congestion. No definite focal infiltrate. No pleural effusion or pneumothorax. Dictated by: Paul Gutiérrez M.D. on 04/11/2025 at 22:30 Approved by: Paul Gutiérrez M.D. on 04/11/2025 at 22:30 ECG Data Attestation: I personally reviewed and interpreted this ECG as follows: Interpretation: 2201, normal sinus rhythm with rate of 69, no obvious ST segment elevation or depression changes. RI 184, QRS 72, QTC 452. MDM Narrative Medical decision making narrative: 64-year-old female with no known history of coronary artery disease, has chest pain radiating to the back starting when she was bending over, history of reflux for which he takes Pepcid. Had recent echocardiogram, awaiting stress test next week, prior to anticipated vacation travel to [place]. History of diabetes. History of anxiety. EMS transport, given aspirin during transport. EKG no acute ischemic changes, sinus rhythm. Chest x-ray no lobar infiltrate. See radiology report. Lab data: White blood cell count 6100, hemoglobin 15, platelets adequate. Glucose 133. Normal renal function, carbon dioxide, electrolytes. Liver functions and lipase normal. BNP 438 not particularly elevated. Initial troponin negative/unmeasurable. Repeat interval troponin pending. Repeat troponin also negative. Patient discharged home. Follow up for outpatient cardiac stress testing prior to international travel to use: As planned. Bending over discomfort in radiation of the back suspicious for reflux, IV Protonix given. Advised to consider omeprazole antacid for the next 2-4 weeks. Discharged home with family. Follow up with Cardiology as above. Return precautions discussed. Discharge Plan Departure Patient Disposition: Home Clinical Impression: Chest pain Instructions: DI for Chest Pain Activity Restrictions/Additional Instructions: Chest discomfort, anticipating international travel, recent echocardiogram, awaiting cardiac stress test as an outpatient. Some discomfort epigastrium when bending over, with radiation between shoulder blades. Very suspicious for gastroesophageal reflux by history. EKG and blood testing not suggestive of heart attack at this time. Trial of antacid, IV Protonix antacid given while in the emergency department, consider omeprazole daily [id number] 20 mg for the next 2-4 weeks. Follow up for your cardiac stress test as planned. Return earlier to this/nearest emergency department for any change worsening symptoms or any concerns prior. Prescriptions: No Action metformin 1,000 mg tablet 1,000 mg PO BID Rx Instructions: 1000 mg am and night. 500mg afternoon Glucose: Test Strips 0 str miscellaneous BID buspirone 5 mg tablet 5 mg PO 3XD Jardiance 25 mg tablet 25 mg PO DAILY Referrals: Mk Quevedo MD [Primary Care Provider, Internal Medicine] Stand Alone Forms: Patient Portal/API
[2025-04-12] VITALS: PULSE 67; RESP 20; O2SAT 97
[2025-04-12 00:01] VITALS: BP 129/61; PULSE 65; RESP 24; O2SAT 97
[2025-04-12 00:30] VITALS: BP 130/62; PULSE 64; RESP 18; O2SAT 96
[2025-04-12] MEDS: PANTOPRAZOLE 40 MG VIAL IV (00:37)
[2025-04-12 01:00] VITALS: BP 120/58; PULSE 57; RESP 16; O2SAT 96
[2025-04-12 01:14] LABS: Troponin I < 0.012 ng/mL (0.01-0.034)
[2025-04-12 01:30] VITALS: BP 134/62; PULSE 60; RESP 15; O2SAT 98
[2025-04-12 02:00] VITALS: BP 117/73; PULSE 59; RESP 24; O2SAT 98
== END 2025-04-12 02:05 | disposition home or self-care (01) ==
PROVIDERS: Emergency Provider Emergency Medicine; Family Provider Internal Medicine; PCP Internal Medicine
DX: R07.9 Chest pain, unspecified (principal); F41.9 Anxiety disorder, unspecified; I25.10 Atherosclerotic heart disease of native coronary artery without angina pectoris; Z87.891 Personal history of nicotine dependence
CPT/HCPCS: 36415; 71045; 80053; 82550; 83690; 83735; 83880; 84484; 85025; 85610; 85730; 93005; 93010; 96374; 99284; J2470